=== PATIENT | male | born 1940 | race Caucasian/White ===

== ENCOUNTER → 2016-09-08 | Outpatient (CLI) | payer OTHER ==
[~2016-09-08] MED LIST: ASPI81TA28 PO; CHOL100010 PO; HYDR-5688 PO; MULT-190 PO
[2016-09-08 12:22] LABS: BASO % 0.4 %; BASO ABS # 0.03 K/uL (0-0.2); COMPLETE YES; EOS % 1.4 %; HEMATOCRIT 41.3 % (42-52); IG% 0.1 %; LYMPH % 31.5 %; LYMPH ABS # 2.39 K/uL (1.2-3.4); MEAN CELL VOLUME 90.2 fL (80-100); MEAN CORPUSCULAR HEMOGLOBIN 30.6 pg (25-34); MEAN CORPUSCULAR HGB CONC 33.9 g/dl (32-36); MONO % 11.5 %; NEUT % 55.1 %; PLATELET COUNT 220 K/uL (130-400); RED BLOOD COUNT 4.58 M/uL (4.7-6.1); WHITE BLOOD COUNT 7.59 K/uL (4.8-10.8)
[2016-09-08 12:36] LABS: BLOOD UREA NITROGEN 21 mg/dl (7-18); BUN/CREATININE RATIO 18.8 (10-20); CALCIUM 9.1 mg/dl (8.5-10.1); CARBON DIOXIDE 24 mmol/L (21-32); CHLORIDE 107 mmol/L (98-107); CHOLESTEROL 196 mg/dl (0-200); GLUCOSE 101 mg/dl (70-99); POTASSIUM 4.2 mmol/L (3.5-5.1); SODIUM 141 mmol/L (136-145); TRIGLYCERIDES 201 mg/dl (0-150); VERY LOW DENSITY LIPOPROT CALC 40 mg/dl
[2016-09-08 12:41] LABS: CHOLESTEROL/HDL RATIO 4.4; HDL CHOLESTEROL 45 mg/dl; LDL CHOLESTEROL CALCULATED 111 mg/dl
== END | disposition home or self-care (01) ==
LOC: C.LABBFT 10:25
PROVIDERS: ATTEND Internal Medicine
DX: E78.5 Hyperlipidemia, unspecified (principal); D64.9 Anemia, unspecified

== ENCOUNTER → 2017-01-28 | Outpatient (CLI) | payer OTHER ==
[2017-01-28 10:31] LABS: ALT/SGPT 27 U/L (12-78); BLOOD UREA NITROGEN 19 mg/dl (7-18); BUN/CREATININE RATIO 16.9 (10-20); CARBON DIOXIDE 24 mmol/L (21-32); CHLORIDE 107 mmol/L (98-107); CHOLESTEROL 169 mg/dl (0-200); GLUCOSE 108 mg/dl (70-99); POTASSIUM 4.3 mmol/L (3.5-5.1); SODIUM 139 mmol/L (136-145); TRIGLYCERIDES 184 mg/dl (0-150); VERY LOW DENSITY LIPOPROT CALC 37 mg/dl
[2017-01-28 10:35] LABS: CALCIUM 8.9 mg/dl (8.5-10.1)
[2017-01-28 10:41] LABS: ALB/GLOB RATIO 1.2 (0.9-2); ALKALINE PHOSPHATASE 64 U/L (45-117); AST/SGOT 26 U/L (15-37); CHOLESTEROL/HDL RATIO 4.3; HDL CHOLESTEROL 39 mg/dl; LDL CHOLESTEROL CALCULATED 93 mg/dl
[2017-01-28 10:44] LABS: ESTIMATED AVERAGE GLUCOSE 128 mg/dl; HA1C FLAG Normal (Normal)
== END | disposition home or self-care (01) ==
LOC: C.LAB1850 09:06
PROVIDERS: ATTEND Internal Medicine
DX: E78.5 Hyperlipidemia, unspecified (principal); R73.9 Hyperglycemia, unspecified

== ENCOUNTER → 2017-08-28 | Outpatient (CLI) | payer OTHER ==
[2017-08-28 12:39] LABS: HEMOGLOBIN A1C 6.2 % (4.5-5.6)
== END | disposition home or self-care (01) ==
LOC: C.LABBFT 10:02
PROVIDERS: ATTEND Internal Medicine
DX: E78.5 Hyperlipidemia, unspecified (principal); R73.03 Prediabetes

== ENCOUNTER → 2017-12-24 | Outpatient (CLI) | payer OTHER | END | disposition home or self-care (01) | LOC: C.PATHSPEC 17:00 | PROVIDERS: ATTEND Physician Assistant | DX: C44.519 Basal cell carcinoma of skin of other part of trunk (principal) ==

== ENCOUNTER → 2018-03-30 | Outpatient (CLI) | payer OTHER ==
--- NOTE | 2018-03-30 10:29 | DIAGNOSTIC IMAGING REPORT ---
R KNEE 1 OR 2 VIEWS ROUTINE CLINICAL HISTORY: Bilateral knee pain. COMPARISON: None FINDINGS: Alignment of the right knee is anatomic. There is a probable small right knee joint effusion. No fracture or suspicious lesion is present. There is mild medial compartment and mild to moderate patellofemoral compartment joint space narrowing. There is patellofemoral compartment osteophytosis. Moderate vascular calcification is present. IMPRESSION: 1. No acute fracture. 2. Suspected small right knee joint effusion. 3. Mild to moderate osteoarthritis within the patellofemoral compartment and mild osteoarthritis within the medial compartment. Electronically signed by: Sai Guevara M.D. 03/30/2018 10:27 AM Dictated Date/Time: 03/30/2018 10:26 AM
--- NOTE | 2018-03-30 10:32 | DIAGNOSTIC IMAGING REPORT ---
LEFT KNEE 2 VIEWS CLINICAL HISTORY: Left knee pain. FINDINGS: AP and lateral views of the left knee are obtained. No prior studies are available for comparison at the time of dictation. The skeletal structures are osteopenic. No fracture is seen. There is moderate to advanced tricompartmental degenerative joint space narrowing, greatest in the medial and patellofemoral compartments. There are large marginal osteophytes and patellar enthesophytes. Degenerative beaking is noted in the tibial spine. A joint effusion is observed. Prepatellar soft tissue swelling is noted. Atherosclerotic calcification is seen in the popliteal artery. IMPRESSION: 1. Soft tissue swelling and joint effusion. No acute osseous abnormality is seen. 2. Osteopenia and degenerative change as above. Electronically signed by: Gavin Allan M.D. 03/30/2018 10:30 AM Dictated Date/Time: 03/30/2018 10:29 AM
== END | disposition home or self-care (01) ==
LOC: C.RAD1850 10:16
PROVIDERS: ATTEND Nurse Practitioner
DX: M54.5 Low back pain (principal); M25.462 Effusion, left knee; M85.862 Other specified disorders of bone density and structure, left lower leg

== ENCOUNTER 2018-11-08 07:28 | Inpatient (IN) ==
--- NOTE | 2018-10-27 09:16 | Anesthesiology Consultation ---
Date of Service October 27, 2018 Assessment & Plan (1) Encounter for pre-operative examination: Chart Review Chart Review: Acceptable Risk for Surgery and Patient seen in Pre Admission Testing Teaching & Discussion Instructed NPO after midnight before surgery, except medications with 15 cc of water. Medication instructions provided according to the PAT guidelines. History Surgery Operation Date: 11/08/18 07:30 Proposed Procedures p L1-L2, L2-L3, L3-L4 Laminectomy and Fusion; L1-L2, L2-L3, L3-L4 Osteotomy - Patric Coker DO Height/Weight Height: 6 ft 2 in Weight: 102.4 kg Allergies Allergy/AdvReac Type Severity Reaction Status Date / Time simvastatin AdvReac Intermediate Rash Verified 10/22/18 14:11 Medications Home Medications Medication Instructions Recorded Confirmed Last Taken aspirin 81 mg PO QPM 10/19/18 10/22/18 Unknown meloxicam 15 mg PO QPM 10/19/18 10/22/18 Unknown oxycodone 5 mg PO Q6H PRN #14 tab 10/19/18 10/22/18 Unknown pravastatin 40 mg PO QAM 10/19/18 10/22/18 Unknown vit C,F-Yd-qkkio-lutein-zeaxan 1 tab PO BID 10/19/18 10/22/18 Unknown [PreserVision AREDS-2] Past Medical History Medical History BPH (benign prostatic hyperplasia) Chronic back pain TO LEGS R/L ON OCC Hyperlipidemia Osteoarthritis Past Family History Family History Other Family history non-contributory Past Surgical History Surgical History Cancer BASAL CELL FACE BACK-REMOVAL History of arthroscopy LEFT KNEE History of colonoscopy Past Anesthesia History No Hx of Anesthesia Complications and No Family Hx of Anesthesia Complications History of PONV No Motion Sickness Screening History of Motion Sickness: No Social History Smoking Status: Former smoker tobacco type: cigarettes Do You Dip or Chew Tobacco: No Smoking End Date: QUIT 40+ YRS AGO Hx Alcohol Use: Yes (RARELY) Alcohol type: beer Hx Substance Use: No Exercise / Class Metabolic Activity III < 4 Walking/Shop/Light housework (Denies CP and SOB with stairs but limited activity 2/2 leg/back pain) Review of Systems Pt denies any recent chest pain, shortness of breath, palpitations, cough, fever or URI. Physical Exam Vital Signs BP: 131/83 P: 79bpm SPO2: 94% RA T: 97.5 F R: 16 ENMT Mouth: no dental restorations, no chipped teeth and no loose teeth Thyromental Distance: > or= 3.5 Finger Breadths (.5) Mallampati Class: II Neck normal visual inspection; neck extension not limited Respiratory normal respiratory effort Auscultation: lungs clear to auscultation bilaterally Cardiovascular Rate/Rhythm: regular rate and regular rhythm Heart Sounds: no murmur Vessels: no carotid bruit Testing Electrocardiogram Date: 10/27/18 Findings: + NSR @ (71 with 1st degree AV Block) Left axis deviation. Chest X-Ray Date: 10/27/18 No acute findings. Persistent aortic tortuosity/ectasia. Hiatal hernia. Other Testing Lumbar Spine MRI 10/19/18 1. Severe spinal canal stenosis secondary to disc extrusion's at L1-2 with both cranial and caudal migratory components. This is new from prior exam results in severe multifocal spinal canal stenosis. Findings concerning for cauda equina impingement. 2. Additional multilevel spinal canal stenosis similar in severity to prior exam at L2-3 and L4-5. 3. Multilevel neural foraminal narrowing as detailed above. 4. The deformity of L2 raises concern for an acute to subacute compression fracture and is new from prior. Edema in the pedicles without a discernible fracture plane, likely reactive to trauma. *pt was called with this result and sent to ED for further evaluation and treatment. Laboratory Results 10/27/18 09:33 Blood Type A Positive 10/27/18 09:33 Antibody Screen NEGATIVE 10/27/18 09:33 PT 10.9 Seconds (9.0-12.0) 10/27/18 09:33 INR 1.1 (0.9-1.1) 10/27/18 09:33 APTT 24.1 Seconds (21.0-31.0) 10/27/18 09:33 Laboratory Tests 10/19/18 16:40 Sodium 138 Potassium 4.2 Chloride 104 Carbon Dioxide 25 BUN 28 H Creatinine 1.22 Glucose 116 H *elevated WBC count reported to surgeon. Pt did recently complete methylprednisone taper.
--- NOTE | 2018-10-27 09:24 | PAT Medication Instructions ---
Medication Instructions Date of Service October 27, 2018 Home Medications Medication Instructions Recorded oxycodone 5 mg PO Q6H PRN #14 tab 10/19/18 aspirin 81 mg PO QPM meloxicam 15 mg PO QPM oxycodone 5 mg PO Q6H PRN pravastatin 40 mg PO QAM [PreserVision AREDS-2] 1 tab PO BID ASK your surgeon for instructions aspirin 81 mg PO QPM meloxicam 15 mg PO QPM STOP taking 2 weeks before surgery [PreserVision AREDS-2] 1 tab PO BID Take morning of surgery With a small sip of water, OTHERWISE NOTHING TO EAT OR DRINK AFTER MIDNIGHT: oxycodone 5 mg PO Q6H PRN (if needed, may be taken up to four hours before surgery) pravastatin 40 mg PO QAM Take evening before surgery oxycodone 5 mg PO Q6H PRN (if needed) Other Notes If you have any questions please call us at [phone] or [phone] or [phone] or [phone]
[2018-10-27 09:51] LABS: Hematocrit (blood only) 40.3 % (42-52); Hemoglobin 13.3 g/dL (14.0-18.0); Mean Corpuscular Volume 90.4 fL (80-100); Mean Platelet Volume 8.9 fL (7.4-10.4); Platelet Count 291 K/uL (130-400); RDW Coefficient of Variation 15.7 % (11.5-14.5); RDW Standard Deviation 51.8 fL (36.4-46.3); Red Blood Count 4.46 M/uL (4.7-6.1); White Blood Count 14.42 K/uL (4.8-10.8)
--- NOTE | 2018-10-27 09:55 | XRay Report ---
XR chest Pre-admission PA/Lat CLINICAL HISTORY: Preoperative chest COMPARISON STUDY: 05/24/2010 FINDINGS: The cardiac and mediastinal contours remain stable. There is persistent aortic tortuosity/e ctasia. There is a retrocardiac opacity consistent with a hiatal hernia. There is no failure. There i s no focal pulmonary consolidation. There are no pleural effusions.[ IMPRESSION: No acute findings. Persistent aortic tortuosity/ectasia. Hiatal hernia. Electronically signed by: Santiago Maldonado M.D. 10/27/2018 9:54 AM
[2018-10-27 10:04] LABS: INR 1.1 (0.9-1.1); Partial Thromboplastin Ratio 0.9; Partial Thromboplastin Time 24.1 Seconds (21.0-31.0); Prothrombin Time 10.9 Seconds (9.0-12.0)
[2018-10-27 14:10] LABS: Basophils # (auto) 0.05 K/uL (0-0.2); Basophils % (auto) 0.3 %; Eosinophils # (auto) 0.29 K/uL (0-0.5); Immature Granulocytes % (auto) 0.7 %; Lymphocytes # (auto) 6.29 K/uL (1.2-3.4); Lymphocytes % (auto) 43.6 %; Monocytes # (auto) 0.79 K/uL (0.11-0.59); Monocytes % (auto) 5.5 %; Neutrophils % (auto) 47.9 %
--- NOTE | 2018-11-06 22:13 | History and Physical Report ---
DATE OF ADMISSION: 11/08/2018 CHIEF COMPLAINT: Back pain, numbness, tingling, weakness, posture instability, worsening neurological deficit. He has significant spinal pathology. PAST MEDICAL HISTORY: Positive for basal cell carcinoma, high cholesterol. No hypertension, COPD, diabetes. PAST SURGICAL HISTORY: Negative. ALLERGIES: SIMVASTATIN. CURRENT MEDICATIONS: Meloxicam, aspirin and pravastatin for cholesterol. SOCIAL HISTORY: . No tobacco or alcohol use moderately active. REVIEW OF SYSTEMS: Denies any blurred vision, double vision, tinnitus or vertigo. Denies chest pain, palpitations. Denies asthma, wheezing, shortness of breath. No nausea, vomiting, no bowel and bladder issues, possible retention, but no incontinence, numbness and tingling positive. OBJECTIVE: GENERAL: He is 6 feet 6 inches, 240. He is in distress. VITAL SIGNS: Blood pressure 140/80, pulse 80, respiration 16. HEENT: Pupils react to light and accommodation. Ear, nose and throat clear. CARDIAC: Normal S1, S2. MUSCULOSKELETAL: He has blunted reflexes, decreased reflexes, weakness of the quads 3, strength, weakness of hip abductors. No apparent upper motor neuron issues. PLAN: Includes a laminectomy and fusion, L1-2, L2-3, L3-4 and osteotomy L1-2, L2-3, L3-4.
[~2018-11-08 07:28] MED LIST changes: +ACETAMINOPHEN 1000 MG/100 ML IV IV SCH; -ASPI81TA28 PO; +CEFAZOLIN 2000MG 2,000 MG/15 ML SYR IV SCH; -CHOL100010 PO; -HYDR-5688 PO; +LR 15ML/HR IV SCH; -MULT-190 PO; +SODIUM CHLORIDE 0.9% 1,000 ML IV SCH
[2018-11-08] MEDS ORDERED: ONDANSETRON INJ 2 MG/ML 2 ML VIAL IV PRN ×2 (07:55→14:33)
[2018-11-08] MEDS ORDERED: HYDROmorphone INJ 1 MG/ML SYRINGE IV PRN (07:55)
[2018-11-08] MEDS ORDERED: PHENYLEPHRINE 100MCG/ML 5ML SYR IV PRN (07:55)
[2018-11-08] MEDS ORDERED: ePHEDrine sulfate 50 MG/ML AMP IV PRN (07:55)
[2018-11-08] MEDS ORDERED: ATROPINE SULFATE 0.1 MG/ML 10ML SYR IV PRN (07:55)
[2018-11-08] MEDS ORDERED: BACITRACIN INJ 50,000 UNIT VIAL ONE (09:07)
[2018-11-08] MEDS ORDERED: VANCOMYCIN HCL 1000MG/20ML VIAL ONE (09:07)
[2018-11-08] MEDS ORDERED: THROMBIN FOR SOLN 20000 UNIT KIT ONE (09:07)
[2018-11-08] MEDS ORDERED: GELATIN SPONGE SZ 100 ONE ×2 (09:07→11:29)
[2018-11-08] MEDS ORDERED: BUPIVACAINE/EPINEPHRINE 0.5% MPF 1:200,000 30 ML VIAL ONE (09:08)
[2018-11-08] MEDS ORDERED: PROPOFOL IV EMULSION 10 MG/ML 20 ML VIAL IV ONE (09:13)
[2018-11-08] MEDS ORDERED: ROCURONIUM BROMIDE 10 MG/ML 5 ML VIAL ONE ×6 (09:13→10:53)
[2018-11-08] MEDS ORDERED: LIDOCAINE HCL 2% 2 ML VIAL/AMP(20MG/ML) INFIL ONE (09:13)
[2018-11-08] MEDS ORDERED: MIDAZOLAM HCL 1 MG/ML 2ML VIAL ONE (09:13)
[2018-11-08] MEDS ORDERED: fentaNYL citrate 100 MCG/2 ML VIAL ONE ×3 (09:14→13:16)
--- NOTE | 2018-11-08 09:14 | History & Physical Bridge Note ---
Date of Service November 08, 2018 History & Physical Bridge Note I have examined the patient, reviewed the History & Physical and in the interval since the performance of the History & Physical I have noted the following changes of clinical significance: no changes noted
[2018-11-08] MEDS ORDERED: ALBUMIN HUMAN 5% 12.5 GM/250 ML VIAL IV ONE (09:44)
[2018-11-08] MEDS ORDERED: KETAMINE HCL INJ 50 MG/ML 10 ML VIAL ONE (10:13)
[2018-11-08] MEDS ORDERED: ONDANSETRON INJ 2 MG/ML 2 ML VIAL ONE (10:23)
[2018-11-08] MEDS ORDERED: DEXAMETHASONE SOD INJ 4 MG/ML VIAL ONE (10:23)
[2018-11-08] MEDS ORDERED: ePHEDrine sulfate 50 MG/ML SYR ONE (10:23)
[2018-11-08] MEDS ORDERED: HYDROmorphone INJ 2 MG/ML SYR/VIAL ONE (11:34)
--- NOTE | 2018-11-08 12:28 | Fluoroscopy Report ---
FL spine 1V any level CLINICAL HISTORY: L1-L4 LAMINECTOMY AND FUSION/ L1-L4 OSTEOTOMY COMPARISON STUDY: Lumbar spine MRI October 19, 2018. FLUOROSCOPY TIME: 9 seconds. FLUOROSCOPIC IMAGES: 1 FINDINGS: Lateral image demonstrates bilateral pedicle screws at the L1, L2, L3 and L4 levels. No int erconnecting rods are present. There are surgical retractors. IMPRESSION: Fluoroscopic image demonstrating bilateral pedicle screws at the L1, L2, L3 and L4 level s. Electronically signed by: Sai Guevara M.D. 11/08/2018 12:27 PM
[2018-11-08] MEDS ORDERED: GLYCOPYRROLATE 0.2 MG/ML VIAL ONE (12:35)
[2018-11-08] MEDS ORDERED: NEOSTIGMINE METHYLSULFATE 5 MG/5 ML SYR ONE (12:35)
[2018-11-08] MEDS ORDERED: FLOSEAL HEMOSTATIC MATRIX 10ML TOP ONE (12:38)
--- NOTE | 2018-11-08 12:57 | Post Operative Brief Note ---
Immediate Post Op Note v1 Date of Surgery November 08, 2018 Pre & Post Diagnosis Operation Date: 11/08/18 09:20 Pre-Op Diagnosis: Spinal Stenosis, Disc Herniation Post-Op Diagnosis: Spinal Stenosis, Disc Herniation Procedure Operation Date: 11/08/18 09:20 Actual Procedures p L1-L2, L2-L3, L3-L4 Laminectomy and Fusion; L1-L2, L2-L3, L3-L4 Osteotomy(Not Applicable) - Patric Coker DO Surgeon Patric Coker DO Stone Polisher Machine katty Estimated Blood Loss 300 Findings Consistent with Post-Op Diagnosis Drains Hall Catheter and Hemovac Drain
[2018-11-08] MEDS: fentaNYL citrate 100 MCG/2 ML VIAL IV PRN ×4 (13:15→13:37)
--- NOTE | 2018-11-08 13:55 | Anesthesiology Progress Note ---
Date of Service November 08, 2018 Anesthesia Post Procedure Vital Signs Vital Signs: Temp Pulse Pulse Pulse Resp BP BP 11/08/18 13:21 77 14 111/86 11/08/18 13:20 76 14 11/08/18 13:16 74 20 108/64 11/08/18 13:15 73 16 11/08/18 13:11 70 13 111/74 11/08/18 13:10 71 12 11/08/18 13:07 71 14 125/58 L 11/08/18 13:05 73 17 11/08/18 13:02 76 17 11/08/18 13:01 71 19 110/70 11/08/18 13:00 70 13 123/63 11/08/18 12:59 36.0 C L 67 16 110/70 11/08/18 08:43 36.8 C 89 20 134/90 Pulse Ox 11/08/18 13:21 97 11/08/18 13:20 95 11/08/18 13:16 97 11/08/18 13:15 98 11/08/18 13:11 98 11/08/18 13:10 97 11/08/18 13:07 95 11/08/18 13:05 96 11/08/18 13:02 98 11/08/18 13:01 96 11/08/18 13:00 98 11/08/18 12:59 91 11/08/18 08:43 94 Pain Intensity Lower Back: Pain Intensity: 2 Notes Mental Status: alert / awake / arousable Patient Amnestic to Procedure: Yes Nausea / Vomiting: adequately controlled Pain: adequately controlled Airway Patency, RR, SpO2: stable & adequate BP & HR: stable & adequate Hydration State: stable & adequate Anesthetic Complications: no major complications apparent
[2018-11-08] MEDS ORDERED: ACETAMINOPHEN 1,000 MG/100 ML VIAL IV PRN (14:33)
[2018-11-08] MEDS ORDERED: BISACODYL 10 MG SUPP PR PRN (14:33)
[2018-11-08] MEDS ORDERED: MAGNESIUM HYDROXIDE SUSP 30 ML UDC PO PRN (14:33)
[2018-11-08] MEDS ORDERED: HYDROmorphone INJ 0.5 MG/0.5 ML SYR IV PRN (14:33)
[2018-11-08] MEDS ORDERED: SOD PHOSPHATE/SOD BIPHOSPHATE ENEMA 132 ML BTL PR PRN (14:33)
[2018-11-08] MEDS: dexAMETHasone 6 MG in SYRINGE 0 ML IV SCH ×2 (15:06→21:40)
[2018-11-08] MEDS: CEFAZOLIN 2000MG 2,000 MG/15 ML SYR IV SCH (15:14)
[2018-11-08] MEDS: SODIUM CHLORIDE 0.9% 1000ML 1,000 ML IV SCH (15:15)
[2018-11-08] MEDS: DOCUSATE SODIUM/SENNA 50/8.6MG TAB PO SCH (20:14)
[2018-11-08] MEDS: ASPIRIN 81 MG ECTAB PO SCH (20:14)
[2018-11-08] MEDS ORDERED: NON-FORMULARY MEDICATION (Vit C,E-Zn-Coppr-Lutein-Zeaxan [Preservision Areds-2] 1 TAB) PO SCH (21:00)
[2018-11-09] MEDS: CEFAZOLIN 2000MG 2,000 MG/15 ML SYR IV SCH (00:40)
[2018-11-09] MEDS: OXYCODONE HCL IR 5 MG TAB (IMMEDIATE RELEASE) PO PRN ×2 (04:42→12:10)
[2018-11-09] MEDS ORDERED: Nursing to Pharmacy Communication ONE (04:46)
[2018-11-09] MEDS: SODIUM CHLORIDE 0.9% 1000ML 1,000 ML IV SCH (05:06)
[2018-11-09] MEDS: dexAMETHasone 6 MG in SYRINGE 0 ML IV SCH (06:26)
--- NOTE | 2018-11-09 07:58 | Operative Report ---
DATE OF OPERATION: 11/08/2018 PREOPERATIVE DIAGNOSES: 1. Spinal stenosis, multiple levels of the lumbar spine L1-2, L2-3, L3-4 of lumbar spine and L4-5 lumbar spine. 2. Instability, lumbar spine L1-4. 3. Large herniation L1-2 lumbar spine on the left. POSTOPERATIVE DIAGNOSES: 1. Spinal stenosis, multiple levels of the lumbar spine L1-2, L2-3, L3-4 of lumbar spine and L4-5 lumbar spine. 2. Instability, lumbar spine L1-4. 3. Large herniation L1-2 lumbar spine on the left. PROCEDURE: Include, 1. Lumbar laminectomy, foraminotomy, partial facetectomy of the lumbar spine L1-L5, so L1-2, L2-3, L3-4 and L4-5 lumbar spine. 2. Pedicle screw instrumentation, L1, 2, 3, 4 of lumbar spine bilaterally. 3. We also did a cross link which goes in the same procedure. 4. Posterolateral fusion L1-L2, L3-L4. There were no osteotomies. SURGEON: Patric Coker DO PROFESSIONAL BASS FISHER: Jone Lewis PA-C. COMPLICATIONS: Zero. BLOOD LOSS: 300 mL. ANESTHETIC: General. DESCRIPTION OF PROCEDURE: The patient was taken to the operating room, a general intubated anesthetic provided to the patient, placed prone, shaved, scrubbed, prepped and draped sterile. We made a skin incision, fascial incision. We came down on the lamina, facet joints. We dissected bilaterally out over the facets and transverse processes setting up for our instrumentation techniques. We then meticulously decompressed the canal at 4-5, 3-4, 2-3, and L1-2. we also did a discectomy at L1-2. We did this bilaterally significant undercutting of the facet joints and ligamentum flavum. We then went on to the instrumentation part of the procedure. We took down the facet joints at multiple levels, not truly an osteotomy. We then instrumented the spine at L1, 2, 3, 4 to the spine pedicle screws by the niid.to. I believe we did put a little correction on to the deformity, but nothing major. We locked down the instrumentation then bone grafted out of the transverse processes. We irrigated and closed in layers with #1 Vicryl and 2-0 Vicryl and 3-0 nylon in the skin over Hemovac drain over vancomycin powder. Sterile dressings applied. The patient returned to PACU stable. Implants used through the procedure was by the niid.to. There were no apparent complications. I attest to the content of the Intraoperative Record and any orders documented therein. Any exception s are noted below.
--- NOTE | 2018-11-09 08:23 | Anesthesiology Progress Note ---
Date of Service November 09, 2018 Anesthesia Post Procedure Vital Signs Vital Signs: Temp Pulse Pulse Pulse Resp BP BP 11/09/18 07:48 36.7 C 90 18 144/77 H 11/09/18 03:48 36.7 C 88 17 115/71 11/08/18 23:38 36.4 C L 94 H 18 131/77 11/08/18 19:29 36.6 C 96 H 20 135/74 11/08/18 17:27 36.3 C L 102 H 16 129/79 11/08/18 16:03 36.4 C L 95 H 20 136/75 11/08/18 15:03 36.3 C L 95 H 20 122/76 11/08/18 14:46 89 16 137/80 11/08/18 14:20 36.3 C L 90 16 137/75 11/08/18 14:09 36.1 C L 11/08/18 14:06 90 16 136/73 11/08/18 14:05 83 14 11/08/18 14:02 82 14 11/08/18 14:01 85 14 130/72 11/08/18 14:00 82 14 11/08/18 13:56 86 20 147/81 H 11/08/18 13:55 89 13 11/08/18 13:51 84 13 138/80 11/08/18 13:50 84 12 11/08/18 13:46 83 14 143/76 H 11/08/18 13:45 85 14 11/08/18 13:41 88 17 137/82 11/08/18 13:40 82 13 11/08/18 13:36 87 19 135/72 11/08/18 13:35 83 21 11/08/18 13:31 82 14 137/73 11/08/18 13:30 80 12 11/08/18 13:26 79 14 138/60 11/08/18 13:25 77 14 11/08/18 13:22 73 12 11/08/18 13:21 77 14 111/86 11/08/18 13:20 76 14 11/08/18 13:16 74 20 108/64 11/08/18 13:15 73 16 11/08/18 13:11 70 13 111/74 11/08/18 13:10 71 12 11/08/18 13:07 71 14 125/58 L 11/08/18 13:05 73 17 11/08/18 13:02 76 17 11/08/18 13:01 71 19 110/70 11/08/18 13:00 70 13 123/63 11/08/18 12:59 36.0 C L 67 16 110/70 11/08/18 08:43 36.8 C 89 20 134/90 Pulse Ox 11/09/18 07:48 94 11/09/18 03:48 93 11/08/18 23:38 96 11/08/18 19:29 97 11/08/18 17:27 96 11/08/18 16:03 96 11/08/18 15:03 96 11/08/18 14:46 99 11/08/18 14:20 97 11/08/18 14:09 95 11/08/18 14:06 95 11/08/18 14:05 97 11/08/18 14:02 95 11/08/18 14:01 96 11/08/18 14:00 94 11/08/18 13:56 95 11/08/18 13:55 98 11/08/18 13:51 94 11/08/18 13:50 94 11/08/18 13:46 97 11/08/18 13:45 98 11/08/18 13:41 95 11/08/18 13:40 97 11/08/18 13:36 98 11/08/18 13:35 98 11/08/18 13:31 97 11/08/18 13:30 97 11/08/18 13:26 95 11/08/18 13:25 97 11/08/18 13:22 94 11/08/18 13:21 97 11/08/18 13:20 95 11/08/18 13:16 97 11/08/18 13:15 98 11/08/18 13:11 98 11/08/18 13:10 97 11/08/18 13:07 95 11/08/18 13:05 96 11/08/18 13:02 98 11/08/18 13:01 96 11/08/18 13:00 98 11/08/18 12:59 91 11/08/18 08:43 94 Pain Intensity Lower Back: Pain Intensity: 0 Notes Mental Status: alert / awake / arousable and participated in evaluation Patient Amnestic to Procedure: Yes Nausea / Vomiting: adequately controlled Pain: adequately controlled Airway Patency, RR, SpO2: stable & adequate BP & HR: stable & adequate Hydration State: stable & adequate Anesthetic Complications: no major complications apparent and Pt Satisfied with anesthetic care
[2018-11-09] MEDS: PRAVASTATIN SOD 40 MG TAB PO SCH (08:48)
[2018-11-09] MEDS: ASPIRIN 81 MG ECTAB PO SCH (20:36)
[2018-11-09] MEDS: DOCUSATE SODIUM/SENNA 50/8.6MG TAB PO SCH (20:36)
[2018-11-10] MEDS: PRAVASTATIN SOD 40 MG TAB PO SCH (07:35)
[2018-11-10] MEDS: OXYCODONE HCL IR 5 MG TAB (IMMEDIATE RELEASE) PO PRN (10:43)
--- NOTE | 2018-11-11 06:36 | Coding Query ---
CODING QUERY To promote full compliance with coding requirements relating to patient care, provider participation is requested in all cases of apprentice lineman third step uncertainty. Please assist us with the question(s) below: Coding Question(s): Please specify below, the type of Bone Graft used in the Spinal Fusion procedure on 11/08/18. ( ) Autologous Tissue Substitute ( ) Nonautologous Tissue Substitute ( ) Both Autologous and Nonautologous Tissue Substitute ( ) Synthetic Substitute ( ) Other: Please Specify: Physician's Response(s): Thank you Tess Tripp Principal Diagnosis: "that condition established after study, to be chiefly responsible for occasioning the admission of the patient to the hospital for care." Co-Existing Principal Diagnosis: "when two or more diagnoses equally meet the criteria for principal diagnosis as determined by the circumstances of admission, diagnostic work up, and/or therapy provided, and the Alphabetic Index, Tabular List, or another coding guideline does not provide sequencing direction, any one of the diagnoses may be sequenced first." "When the physician has documented what appears to be a current diagnosis in the body of the record, but has not included the diagnosis in the final diagnostic statement, the physician should be asked whether the diagnosis should be added." (Source [facility]oding [facility] 2 QTR90. p3-4) FATMATA
--- NOTE | 2018-11-11 07:56 | Discharge Summary ---
HISTORY OF PRESENT ILLNESS: He is alert, oriented. Minimal complaints of pain. Vital signs stable. No chest pain, shortness of breath. No calf tenderness. PHYSICAL EXAMINATION: VITAL SIGNS: Afebrile. EXTREMITIS: Moves all extremities. NEUROLOGIC: Communicates perfectly. ASSESSMENT: Reconstructive spine surgery. PLAN: Includes dressing change today. Drain will be pulled. We will get him discharged. He has a followup appointment. He is given instructions and precautions and warnings in the office and here in the hospital. Prescriptions are on his chart for a rolling walker, commode healthcare consulting manager, and Napoleon for pain.
--- NOTE | 2018-11-18 16:17 | Coding Query ---
Answer to the coding query: The bone grafted used in spinal fusion on 11/08/2018 with both autograft and nonautologous tissues substitute. FATMATA
== END 2018-11-10 11:12 | disposition home or self-care (01) | DRG 460 ==
LOC: ASU 07:28 → 3E 13:04

== ENCOUNTER 2018-11-15 11:06 | Inpatient (IN) ==
[2018-11-15] MEDS ORDERED: HYDROmorphone INJ 1 MG/ML SYRINGE IV PRN (11:59)
[2018-11-15] MEDS ORDERED: ONDANSETRON INJ 2 MG/ML 2 ML VIAL IV STA (11:59)
[2018-11-15 12:43] LABS: Basophils # (auto) 0.03 K/uL (0-0.2); Basophils % (auto) 0.2 %; Eosinophils # (auto) 0.13 K/uL (0-0.5); Eosinophils % (auto) 0.9 %; Hematocrit (blood only) 31.4 % (42-52); Hemoglobin 10.4 g/dL (14.0-18.0); Immature Granulocytes # (auto) 0.11 K/uL (0.00-0.02); Immature Granulocytes % (auto) 0.8 %; Lymphocytes # (auto) 4.61 K/uL (1.2-3.4); Lymphocytes % (auto) 31.6 %; Mean Corpuscular Hgb Conc 33.1 g/dL (32-36); Mean Platelet Volume 8.1 fL (7.4-10.4); Monocytes # (auto) 1.35 K/uL (0.11-0.59); Monocytes % (auto) 9.2 %; Neutrophils # (auto) 8.38 K/uL (1.4-6.5); Neutrophils % (auto) 57.3 %; Platelet Count 414 K/uL (130-400); RDW Standard Deviation 51.5 fL (36.4-46.3); Red Blood Count 3.53 M/uL (4.7-6.1); White Blood Count 14.61 K/uL (4.8-10.8)
[2018-11-15 12:59] LABS: Albumin Level 3.2 gm/dl (3.4-5.0); Aspartate Aminotransferase 24 U/L (15-37); BUN Creatinine Ratio 13.9 (10-20); Blood Urea Nitrogen 14 mg/dl (7-18); C Reactive Protein 4.31 mg/dl (0-0.29); Calcium 9.1 mg/dl (8.5-10.1); Carbon Dioxide 26 mmol/L (21-32); Chloride 104 mmol/L (98-107); Est GFR (African American) 80.6; Est GFR (Non-African American) 69.6; Glucose 87 mg/dl (70-99); Sodium 135 mmol/L (136-145)
[2018-11-15 13:02] LABS: Alanine Aminotransferase 26 U/L (12-78); Albumin Globulin Ratio 0.7 (0.9-2); Alkaline Phosphatase 79 U/L (45-117); Bilirubin,Total 0.3 mg/dl (0.2-1); Globulin 4.4 gm/dl (2.5-4.0); Total Protein 7.6 gm/dl (6.4-8.2)
--- NOTE | 2018-11-15 14:12 | Emergency Department Note ---
Entered by Corinna Simms acting as a scribe for Yosi Travis MD History of Present Illness General Chief complaint: Back Injury/Pain Stated complaint: POST SURGERY BACK PAIN Time Seen by Provider: 11/15/18 11:47 Source: patient History of Present Illness Onset (ago): day(s) 5 Location: back Radiation: back Severity: severe Pain Consistency: + other (Worsening) Maximum Pain Intensity: 9 Current Pain Intensity: 9 Quality: + other (Back pain) Relieved By: not by medication ([place]) Exacerbated By: + movement Associated symptoms: + other (Back pain); no fever/chills The patient is a 78 year old male who presents to the Emergency Room with complaints of worsening back pain starting 5 days ago. The patient reports that his back is severely painful. He rates this pain 9/10. He states that he is not able to walk and has not been able to sleep because of the pain. He notes that movement worsens his pain. The patient reports that Dr. Mahan [facility] surgeon performed back surgery 1 week ago and gave the patient [place] which has not relieved his pain. He adds that he does take Aspirin. He denies abdominal pain and fevers. Home Medications Home Medications Medication Instructions Recorded Confirmed Type PreserVision AREDS-2 1 tab PO BID 10/19/18 11/15/18 History aspirin 81 mg PO HS 10/19/18 11/15/18 History meloxicam 15 mg PO HS 10/19/18 11/15/18 History pravastatin 40 mg PO QAM 10/19/18 11/15/18 History hydrocodone-acetaminophen [[place]] 1 tab PO Q6H PRN #40 tab 11/09/18 11/15/18 Rx hydrocodone-acetaminophen [[place]] 1 tab PO Q6H PRN #40 tab 11/18/18 Rx Allergies Allergy/AdvReac Type Severity Reaction Status Date / Time simvastatin AdvReac Intermediate Rash Verified 11/15/18 12:22 Past Med/Surg History Medical History BPH (benign prostatic hyperplasia) Chronic back pain TO LEGS R/L ON OCC Hyperlipidemia Osteoarthritis Surgical History Cancer BASAL CELL FACE BACK-REMOVAL History of arthroscopy LEFT KNEE History of colonoscopy Family History Other Family history non-contributory Social History Preferred Language: Frisian Beliefs That Will Affect Care: Voodoo marital status: Current Living Situation: Spouse Other Information That Helps Us Care for You: No Feels Safe at Home: Yes Safety Concerns: Feels Safe At This Time Smoking Status: Former smoker Hx Alcohol Use: Yes Hx Substance Use: No Review of Systems See HPI for pertinent positives & negatives. and A total of 10 systems reviewed and were otherwise negative Physical Exam Vital Signs Vital Signs - 24 hr 11/17/18 23:18 11/18/18 07:38 11/18/18 15:10 Temperature 36.9 C 36.6 C 36.6 C Temperature Source Oral Oral Pulse Rate [Apical] 81 81 Pulse Rate [Left Finger] 81 81 Respiratory Rate 16 16 16 Respiratory Depth Normal Blood Pressure [Left Arm] 137/69 131/74 131/74 Blood Pressure Mean [Left Arm] 91 93 Blood Pressure Position [Left Arm] Lying Lying Pulse Oximetry 95 95 95 Oxygen Delivery Method Room Air Room Air 11/18/18 15:13 Temperature 36.5 C Temperature Source Oral Pulse Rate [Apical] Pulse Rate [Left Finger] 103 H Respiratory Rate 19 Respiratory Depth Blood Pressure [Left Arm] 120/57 L Blood Pressure Mean [Left Arm] 78 Blood Pressure Position [Left Arm] Sitting Pulse Oximetry 96 Oxygen Delivery Method Room Air GENERAL: Awake, alert, well-appearing, in no distress HENT: Normocephalic, atraumatic. Oropharynx unremarkable. EYES: Normal conjunctiva. Sclera non-icteric. NECK: Inspection normal. Non-tender. Supple. No nuchal rigidity. FROM. No masses. RESPIRATORY: Clear to auscultation. No wheezes. No rales. Normal respiratory effort. CARDIAC: Normal rate. Normal rhythm. No murmurs. No rubs. Extremities warm and well perfused. Pulses equal. No JVD. GI: Soft, non-distended. No tenderness to palpation. No rebound or guarding. No masses. RECTAL: Deferred. MUSCULOSKELETAL: Atraumatic. Chest examination reveals no tenderness. The back is symmetrical on inspection without obvious abnormality. No joint edema. Wound dressing in place. 5/5 strength. LOWER EXTREMITIES: Calves are equal size bilaterally and non-tender. No edema. No discoloration. NEURO: Normal sensorium. No sensory or motor deficits noted. SKIN: No rash or jaundice noted. Course 1150: The patient was evaluated in room C1A, and a complete history and physical examination were performed. 1244: I reevaluated the patient at this time who is feeling better. Administered Medications Discontinued Medications Hydrocodone Bitart/Acetaminophen ([place] 10/325) 1 tab PO Q6H PRN PRN Reason: PAIN RATING 1-5 Stop: 11/29/18 17:11 Last Admin: 11/18/18 11:36 Dose: 1 tab Documented by: [id number] Admin: 11/18/18 04:51 Dose: 1 tab Documented by: [id number] Admin: 11/17/18 22:45 Dose: 1 tab Documented by: [id number] Admin: 11/17/18 16:10 Dose: 1 tab Documented by: [id number] Admin: 11/17/18 07:29 Dose: 1 tab Documented by: [id number] Admin: 11/16/18 23:19 Dose: 1 tab Documented by: [id number] Admin: 11/16/18 15:20 Dose: 1 tab Documented by: [id number] Admin: 11/16/18 08:56 Dose: 1 tab Documented by: [id number] Admin: 11/16/18 01:59 Dose: 1 tab Documented by: [id number] Admin: 11/15/18 19:58 Dose: 1 tab Documented by: [id number] Aspirin (Ecotrin Ectab) 81 mg PO HS TENZIN Stop: 12/15/18 20:59 Last Admin: 11/17/18 21:39 Dose: 81 mg Documented by: [id number] Admin: 11/16/18 20:31 Dose: 81 mg Documented by: [id number] Admin: 11/15/18 20:46 Dose: 81 mg Documented by: [id number] Docusate Sodium (Colace) 100 mg PO BID TENZIN Stop: 12/15/18 20:59 Last Admin: 11/18/18 08:34 Dose: 100 mg Documented by: [id number] Admin: 11/17/18 21:39 Dose: 100 mg Documented by: [id number] Admin: 11/17/18 08:52 Dose: 100 mg Documented by: [id number] Admin: 11/16/18 20:31 Dose: 100 mg Documented by: [id number] Admin: 11/16/18 08:55 Dose: 100 mg Documented by: [id number] Admin: 11/15/18 20:46 Dose: 100 mg Documented by: [id number] Hydromorphone HCl (Dilaudid) 1 mg IV Q15M PRN PRN Reason: Pain Stop: 11/29/18 11:58 Last Admin: 11/15/18 12:42 Dose: 1 mg Documented by: [id number] Hydromorphone HCl (Dilaudid) 0.5 mg IV Q4H PRN PRN Reason: Pain Stop: 11/29/18 17:11 Last Admin: 11/17/18 19:09 Dose: 0.5 mg Documented by: [id number] Admin: 11/16/18 07:32 Dose: 0.5 mg Documented by: [id number] Sodium Chloride (Nss 1000ml) 1,000 mls @ 80 mls/hr IV .[id number] TENZIN Stop: 12/15/18 17:29 Last Admin: 11/17/18 08:03 Dose: Not Given Documented by: [id number] Infusion: 11/17/18 07:44 Dose: 80 mls/hr Documented by: [id number] Admin: 11/16/18 19:14 Dose: 80 mls/hr Documented by: [id number] Infusion: 11/16/18 18:22 Dose: 0 mls/hr Documented by: [id number] Infusion: 11/16/18 14:34 Dose: 80 mls/hr Documented by: [id number] Infusion: 11/16/18 06:14 Dose: 80 mls/hr Documented by: [id number] Admin: 11/16/18 05:52 Dose: 80 mls/hr Documented by: [id number] Infusion: 11/16/18 05:52 Dose: 80 mls/hr Documented by: [id number] Admin: 11/15/18 18:02 Dose: 80 mls/hr Documented by: [id number] Magnesium Hydroxide (Milk Of Magnesia) 30 ml PO Q6H PRN PRN Reason: Constipation Stop: 12/15/18 17:11 Last Admin: 11/17/18 08:53 Dose: 30 ml Documented by: [id number] Ondansetron HCl (Zofran) 4 mg IV NOW STA Stop: 11/15/18 12:00 Last Admin: 11/15/18 12:42 Dose: 4 mg Documented by: [id number] Pravastatin Sodium (Pravachol) [facility] Stop: 12/16/18 08:59 Last Admin: 11/18/18 08:34 Dose: 40 mg Documented by: [id number] Admin: 11/17/18 08:52 Dose: 40 mg Documented by: [id number] Admin: 11/16/18 08:55 Dose: 40 mg Documented by: [id number] Medical Decision Making Differential Diagnosis Differential diagnosis: Etiologies such as muscular strain, fracture, metastatic disease, disc herniation, sciatica, epidural abscess, vertebral osteomyelitis, discitis, spinal epidural hematoma, cord compression, cauda equina/conus medullaris syndrome, aortic disease, infection, shingles, renal colic, gastrointestinal, acute exacerbation of chronic back pain, as well as others were entertained. Medical Records Attestation: I reviewed the patient's medical records. Home Medications Current Medication List: was personally reviewed by me Laboratory Data Attestation: I reviewed the patient's lab results. Result diagrams: 11/15/18 12:30 11/15/18 12:30 Lab Results 11/15/18 11/15/18 11/15/18 Range/Units 12:30 12:30 12:30 WBC 14.61 H (4.8-10.8) K/uL RBC 3.53 L (4.7-6.1) M/uL Hgb 10.4 L (14.0-18.0) g/dL Hct 31.4 L (42-52) % MCV 89.0 (80-100) fL MCH 29.5 (25-34) pg MCHC 33.1 (32-36) g/dL RDW Std Deviation 51.5 H (36.4-46.3) fL RDW Coeff of Bhavesh 16.0 H (11.5-14.5) % Plt Count 414 H (130-400) K/uL MPV 8.1 (7.4-10.4) fL Immature Gran % (Auto) 0.8 % Neut % (Auto) 57.3 % Lymph % (Auto) 31.6 % [place] % (Auto) 9.2 % Eos % (Auto) 0.9 % Baso % (Auto) 0.2 % Immature Gran # (Auto) 0.11 H (0.00-0.02) K/uL Neut # (Auto) 8.38 H (1.4-6.5) K/uL Lymph # (Auto) 4.61 H (1.2-3.4) K/uL [place] # (Auto) 1.35 H (0.11-0.59) K/uL Eos # (Auto) 0.13 (0-0.5) K/uL Baso # (Auto) 0.03 (0-0.2) K/uL ESR 77 H (0-14) mm/hr Sodium 135 L (136-145) mmol/L Potassium 4.0 (3.5-5.1) mmol/L Chloride 104 (98-107) mmol/L Carbon Dioxide 26 (21-32) mmol/L Anion Gap 6.0 (3-11) BUN 14 (7-18) mg/dl Creatinine 1.02 (0.6-1.4) mg/dl Est Cr Clr Drug Dosing Not Reportable Est GFR ( Amer) 80.6 Est GFR (Non-Af Amer) 69.6 BUN/Creatinine Ratio 13.9 (10-20) Glucose 87 (70-99) mg/dl Calcium 9.1 (8.5-10.1) mg/dl Total Bilirubin 0.3 (0.2-1) mg/dl AST 24 (15-37) U/L ALT 26 (12-78) U/L Alkaline Phosphatase 79 (45-117) U/L C-Reactive Protein 4.31 H (0-0.29) mg/dl Total Protein 7.6 (6.4-8.2) gm/dl Albumin 3.2 L (3.4-5.0) gm/dl Globulin 4.4 H (2.5-4.0) gm/dl Albumin/Globulin Ratio 0.7 L (0.9-2) Lipase 78 (73-393) U/L Imaging Data Radiologist's Impression: Radiology results as stated below per my review and the radiologist's interpretation: Blood Pressure Blood Pressure Findings: Normal blood pressure MDM Narrative This is a 78-year-old male who presents emergency department complaining of low back pain. Patient has history of having his back operated on. He is afebrile however does have an old he was given Dilaudid here for the pain. Repeat examination revealed improvement the patient's symptoms. Using shared medical decision making with the patient the decision was made to send the patient for an MRI of his lower spine. I did discuss the MRI with Dr. Coker who was kind enough to see the patient. The patient was admitted to Dr. Coker's service. Impression & Plan Back pain Discharge Plan Visit Data *Final* Discharge Date/Time: 11/15/18 16:31 Chief Complaint: Back Injury/Pain Stated Complaint: POST SURGERY BACK PAIN ED Provider: Yosi Travis Discharge Problem: Back pain Patient Disposition: Admitted As Inpatient Discharge Instructions Interventions: ED Discharge Assessment Last Done: 11/15/18 16:31 Discharge Problem: Back pain Qualifiers: Back pain location: back pain in unspecified location Chronicity: acute Back pain laterality: midline Qualified Code(s): M54.9 - Dorsalgia, unspecified The scribe's documentation has been prepared under my direction and personally reviewed by me in its entirety. I confirm that the note above accurately reflects all work, treatment, procedures, and medical decision making performed by me.
--- NOTE | 2018-11-15 15:00 | Magnetic Resonance Report ---
MRI OF THE LUMBAR SPINE WITHOUT CONTRAST CLINICAL HISTORY: Low back pain. Lower extremity numbness. COMPARISON STUDY: Lumbar spine MRI October 19, 2018. Lumbar spine fluoroscopic images November 08, 2018. TECHNIQUE: Utilizing a 1.5 [place] magnet and dedicated coil, multiplanar, multiecho imaging of the du ar spine was performed without IV contrast. FINDINGS: For purposes of numbering on this exam, the L5-S1 disc space is assigned to axial image 29 of 30. The patient is status post decompression and bilateral pedicle screw fusion from L1 through L4 since MRI of October 19, 2018. Evaluation is compromised by susceptibility artifact from this hardware. L2 compre ssion fracture is noted. Subtle hypointense signal along the superior endplate of L1 may reflect a fr acture. The right pedicle screw at this level may extend through the superior endplate. Note is made of a 6.8 x 2.3 x 1.7 cm laminectomy bed fluid collection which has moderate mass effect upon the thec al sac. This collection is located at the L2 through upper L4 levels. Additional smaller operative be d fluid collections are present. These fluid collections are nonspecific. The conus terminates at the L1 level. Note is made of a central disc extrusion at L1-L2 with superior subligamentous migration. Moderate to severe multilevel disc space narrowing is noted. Paravertebral soft tissues are otherwise unremarkable. IMPRESSION: 1. Status post interval L1-L4 laminectomy and bilateral pedicle screw fusion. Several operative bed f luid collections, including a 6.8 x 2.3 x 1.7 cm laminectomy bed fluid collection at L2-L4 with moder ate to severe mass effect upon the thecal sac and narrowing of the canal and could be correlated with clinical evidence for cauda equina syndrome. These fluid collections are nonspecific. 2. Hypointense signal along the superior endplate of L1 which suggests a fracture. Right pedicle scre w at this level may extend through the superior endplate. 3. Old L2 compression fracture. 4. L1-L2 central disc extrusion. 5. Exam moderately compromised by susceptibility artifact from the surgical hardware. Electronically signed by: Sai Guevara M.D. 11/15/2018 2:58 PM
[2018-11-15] MEDS ORDERED: ONDANSETRON INJ 2 MG/ML 2 ML VIAL IV PRN (17:12)
[2018-11-15] MEDS ORDERED: ALUMINUM/MAGNESIUM SUSP 30 ML UDC PO PRN (17:12)
[2018-11-15] MEDS ORDERED: OXYCODONE/ACETAMINOPHEN 5mg/325mg TAB PO PRN (17:12)
[2018-11-15] MEDS ORDERED: ACETAMINOPHEN 1,000 MG/100 ML VIAL IV PRN (17:12)
[2018-11-15] MEDS ORDERED: MAGNESIUM HYDROXIDE SUSP 30 ML UDC PO PRN (17:12)
[2018-11-15] MEDS: SODIUM CHLORIDE 0.9% 1000ML 1,000 ML IV SCH (18:02)
[2018-11-15] MEDS: HYDROCODONE/ACETAMINOPHEN 10/325 TAB PO PRN (19:58)
[2018-11-15] MEDS: DOCUSATE SODIUM 100 MG CAP PO SCH (20:46)
[2018-11-15] MEDS: ASPIRIN 81 MG ECTAB PO SCH (20:46)
[2018-11-15] MEDS ORDERED: NON-FORMULARY MEDICATION (Vit C,E-Zn-Coppr-Lutein-Zeaxan [Preservision Areds-2] 1 TAB) PO SCH (21:00)
[2018-11-16] MEDS: HYDROCODONE/ACETAMINOPHEN 10/325 TAB PO PRN ×4 (01:59→23:19)
[2018-11-16] MEDS: SODIUM CHLORIDE 0.9% 1000ML 1,000 ML IV SCH ×2 (05:52→19:14)
[2018-11-16] MEDS: HYDROmorphone INJ 0.5 MG/0.5 ML SYR IV PRN (07:32)
--- NOTE | 2018-11-16 08:27 | History and Physical Report ---
DATE OF ADMISSION: 11/15/2018 CHIEF COMPLAINT: Back pain, lower extremity pain. HISTORY OF PRESENT ILLNESS: Clemencia is a delightful patient, operated on 8 days ago, fairly uneventful, but a lumbar spine surgery, although a major operation, instrumentation fusion and correction of his kyphosis. He went home. He is well only for 1 day, had pain on Thursday, which is a few days ago, seemed to have survived the weekend fairly well, but on Thursday, the pain became so excruciating for Mr. Bower. He went to the Emergency Room appropriately. We saw him in the Emergency Room, although he is intact. Neurologically, he has significant pain, difficulty with ambulation. I admitted him to the service of orthopedic spine surgery after an MRI scan demonstrates compression of the cauda equina area of the lumbar area, looks like a hematoma to me or seroma postoperative which is the more likely diagnosis. PAST MEDICAL HISTORY: Positive for osteoarthritis, back pain, cancer, hyperlipidemia. PAST SURGICAL HISTORY: Recent surgical history includes his lumbar spine surgery. REVIEW OF SYSTEMS: He denies any fevers, sweats, chills. Denies any bowel and bladder issues. Does have some mechanical back pain. PHYSICAL EXAMINATION: VITAL SIGNS: Blood pressure 146/76, pulse 76 and regular. HEENT: Normal. CARDIAC: Normal S1, S2. No S3. LUNGS: Clear. ABDOMEN: Soft, nontender, bowel sounds present. EXTREMITIES: Moves all extremities. Good sensation. Some pain with percussion. Wound clean, dry. Images demonstrate hematoma, lumbar spine. ASSESSMENT: Includes that of a delightful gentleman with hematoma, lumbar spine. PLAN: We will keep him hydrated today, on steroid medication, hopefully this will resolve in 24-48 hours. If it does not resolve, a low threshold to take him back to surgery for evacuation of hematoma, which is a nonissue in a 78-year-old gentleman. I will follow him closely.
[2018-11-16] MEDS: PRAVASTATIN SOD 40 MG TAB PO SCH (08:55)
[2018-11-16] MEDS: DOCUSATE SODIUM 100 MG CAP PO SCH ×2 (08:55→20:31)
[2018-11-16] MEDS: ASPIRIN 81 MG ECTAB PO SCH (20:31)
[2018-11-17] MEDS: HYDROCODONE/ACETAMINOPHEN 10/325 TAB PO PRN ×3 (07:29→22:45)
[2018-11-17] MEDS: SODIUM CHLORIDE 0.9% 1000ML 1,000 ML IV SCH ×2 (07:59→08:03)
[2018-11-17] MEDS: DOCUSATE SODIUM 100 MG CAP PO SCH ×2 (08:52→21:39)
[2018-11-17] MEDS: PRAVASTATIN SOD 40 MG TAB PO SCH (08:52)
[2018-11-17] MEDS: HYDROmorphone INJ 0.5 MG/0.5 ML SYR IV PRN (19:09)
[2018-11-17] MEDS: ASPIRIN 81 MG ECTAB PO SCH (21:39)
[2018-11-18] MEDS: HYDROCODONE/ACETAMINOPHEN 10/325 TAB PO PRN ×2 (04:51→11:36)
[2018-11-18] MEDS: DOCUSATE SODIUM 100 MG CAP PO SCH (08:34)
[2018-11-18] MEDS: PRAVASTATIN SOD 40 MG TAB PO SCH (08:34)
--- NOTE | 2018-11-18 16:23 | Discharge Summary ---
Mr. Bower was admitted for retractable back pain a few days ago. He was imaged. He was studied. He has made nice improvement and his pain is controlled today sitting. Some back and buttock pain when he stands and numbness and tingling, but no deficit. He has made nice steady progress. His wound clean, dry. He is afebrile. No chest pain or shortness of breath. ASSESSMENT: Status post reconstructive surgery admitted after surgery for intractable back pain. PLAN: [place] for pain, discharged home. He has a followup appointment in 5 days in the office. Instructions given. Precautions given and education to his overall process provided personally by me.
== END 2018-11-18 16:49 | disposition home or self-care (01) | DRG 921 ==
LOC: ED 11:06 → 3W 15:58

== ENCOUNTER 2022-10-16 13:04 | Observation (INO) ==
--- NOTE | 2022-10-16 13:08 | Emergency Department Note ---
Impression & Plan Intractable back pain, Leukocytosis ED Provider Note NAME: FREDDY ESPINOZA AGE: 82 SEX: M : 1940 ARRIVES VIA: Ambulance INFORMANT: [Patient][, ] ED PROVIDER(S): [Vivek Carreno MD] CHIEF COMPLAINT: Back pain MEDICAL DECISION MAKING: Patient presented due to concern for acute on chronic back pain. The patient did have an IV established the patient was ordered IV morphine, Solu-Medrol, p.o. oxycodone, p.o. Tylenol and a lidocaine patch. After further discussion I did have nursing attempt to ambulate the patient. The patient states that he was unable to do so secondary to pain. Given the patient's acute on chronic pain the patient was ordered additional IV pain medication including IV fentanyl. I did speak the on-call hospitalist service Dr. De Luna and the patient was admitted to the medicine service. Patient did have blood work completed at the time of his admission which does show a white count of 33 but the patient has a known history of B-cell lymphoproliferative disorder. The patient has mild anemia hemoglobin of 10.7. Patient's electrolytes grossly unremarkable does have some prerenal azotemia at 26. BSG 113 but not DKA Prior /Outside records reviewed: I did review the patient's prior CT which showed interpedicular screw extending from L2 through the disc space into the L1 vertebral body. I did review an outpatient report from the patient's disaster recovery specialist Dr. George at [facility]. 70 completed on September 03, 2022. Patient did have a recent CT done which showed lucency around the sacral and iliosacral screws with prominent hardware and was having persistent pain. The surgeon had discussed surgical options but stated this was briskly and after further discussion with the patient the recommendation was made to continue with pain medication and medical management. Patient really reportedly has 4 out of 5 left EHL and no EHL on the right which is baseline per his report. Differential diagnosis: Musculoskeletal, disc herniation, fracture, metastatic disease, cord compre ssion, discitis, sciatica, cauda equina, infection, aortic disease, renal colic, gastrointestinal, as well as other pathologies. Diagnostics, as interpreted by me: ECG: [none] Cardiac monitoring: An order was placed for continuous cardiac monitoring. The monitor shows a rate of 92 with sinus rhythm. [Patient was placed on pulse oximetry] Medical decision rules: [none] Imaging studies: See below HPI: Patient presents due to concern for worsening back pain. The patient states this primarily occurs over the left lumbar paraspinal area and will occasionally radiate to his left groin. Patient denies any chest pains or shortness of breath. The patient does have chronic symptoms from a prior surgery and states that he has PAST MEDICAL HISTORY: [See Below] PAST SURGICAL HISTORY: [See Below] SOCIAL HISTORY: [See Below] HOME MEDICATIONS: [See Below] ALLERGIES: [See Below] VITALS: [See Below] PHYSICAL EXAMINATION: GENERAL: NAD, [wearing a mask,] non-toxic. EYE EXAM: Normal conjunctiva. PERRL, no anisocoria and EOM's grossly intact w/o pain. NECK: Supple, no nuchal rigidity, no adenopathy, non-tender. No signs of meningismus. FROM of the neck with good chin to chest and neck extension. No stridor. LUNGS: Clear to auscultation. Normal chest wall mechanics. HEART: NSR, no MRG. ABDOMEN: Abdomen soft, non-tender, normo-active bowel sounds, no masses, no rebound or guarding. BACK: Left-sided lower lumbar paraspinal discomfort without overlying skin changes, well-healed midline incisional scar in the lower lumbar area. SKIN: No rashes and no bruising. UPPER EXTREMITIES: Upper extremities are grossly normal. LOWER EXTREMITIES: Grossly normal, no edema. No saddle anesthesia. NEURO EXAM: A&O x3, cranial nerves II-XII grossly intact, normal speech, moves all 4 extremities. Past Med/Surg History Medical History B-cell lymphoproliferative disorder BPH (benign prostatic hyperplasia) Chronic back pain TO LEGS R/L ON OCC Hyperlipidemia Hypertension Opioid dependence Osteoarthritis Postlaminectomy syndrome of lumbosacral region Postlaminectomy syndrome of thoracic region Scoliosis Surgical History Cancer BASAL CELL FACE BACK-REMOVAL History of arthroscopy LEFT KNEE History of colonoscopy Status post laminectomy with spinal fusion Family History Father CHF (congestive heart failure) Neuropathy Sister Breast cancer Mother Dementia Denies family history of Ovarian cancer Prostate cancer Diabetes Coronary heart disease Myocardial infarction Lung cancer Colorectal cancer Social History Smoking Status: Former smoker Tobacco Type: Cigarettes Age Started Using Tobacco: 17; Age Quit Using Tobacco: 29; packs per day: 1; Cigarettes Per Day: 1 PPD; Smoking End Date: ; Second Hand Exposure: No; Do You Dip or Chew Tobacco: No; Tobacco Cessation Education Requested by Patient: No Hx Alcohol Use: Yes Alcohol type: beer Hx Substance Use: No Preferred Language: Tajik Communication Ability: Effective Visual Impairment: No Limitations Hearing Ability: Normal Expansion Joint Finisher Required: No Beliefs That Will Affect Care: None marital status: Current Living Situation: Spouse Current Living Situation Comment: Lives w/ current occupational status: retired current occupation: [employer] How many Children do You have: 2 Other Information That Helps Us Care for You: No Feels Safe at Home: Yes Safety Concerns: Feels Safe At This Time Childhood Exposure to Second-Hand Smoke: No caffeine: Yes during the past year weight has: remained stable Dental Care, Regularly: Yes Physical Activity Frequency: 1-2 Times per Week Physical Activity Frequency Comment: strength training, 60 minutes Seatbelt Use: always Sunscreen Use: Yes Assistive Devices: Cane and Walker Assistive Devices Comment: Uses both cane and wheely walker Allergies Allergies Allergy/AdvReac Type Severity Reaction Status Date / Time simvastatin AdvReac Intermediate Rash Verified 03/05/22 11:23 Home Meds Home Medications Medication Instructions Recorded Confirmed vit C 250 mg-vit E 90 mg-zinc 40 1 tab PO BID 10/19/18 10/16/22 mg-copper 1 [id number] capsule (PreserVision AREDS-2) docusate sodium 100 mg capsule 100 mg PO BID 05/16/19 10/16/22 cholecalciferol (vitamin D3) 25 25 mcg PO DAILY 10/26/20 10/16/22 mcg (1,000 unit) tablet medical marijuana 12/03/21 10/16/22 cyanocobalamin (vitamin B-12) 500 500 mcg PO DAILY 01/02/22 10/16/22 mcg tablet Previous Rx's Medication Instructions Recorded naloxone 4 mg/actuation nasal spray 4 mg intranasal Q3M PRN opioid 04/15/21 overdose #2 ea amlodipine 5 mg tablet 5 mg PO DAILY #90 tabs 10/29/21 ferrous sulfate 325 mg (65 mg 325 mg PO BID #60 tabs 10/29/21 iron) tablet meloxicam 15 mg tablet 15 mg PO DAILY #90 tabs 10/29/21 duloxetine 60 mg capsule,delayed 60 mg PO DAILY #90 caps 12/03/21 release pravastatin 40 mg tablet 40 mg PO HS #100 tabs 01/20/22 hydrochlorothiazide 25 mg tablet 25 mg PO DAILY #90 tabs 03/05/22 gabapentin 300 mg capsule 300 mg PO .COMPLEX #120 caps 08/28/22 hydrocodone 10 mg-acetaminophen 1 tab PO Q4H increase in low back 09/01/22 325 mg tablet pain #14 tabs hydrocodone 10 mg-acetaminophen 1 tab PO Q6H pain #120 tabs 09/22/22 325 mg tablet Hospital Bed Homecare ([facility] ea 10/14/22 Bed) Results & Data (ED) Vital Signs Vital Signs - 24 hr 10/16/22 12:53 10/16/22 13:13 Temperature 36.7 C Temperature Source Oral Pulse Rate 101 H 97 H Respiratory Rate 14 Respiratory Effort / Characteristics Non-Labored Respiratory Depth Normal Respiratory Pattern Regular Blood Pressure 142/86 H Blood Pressure Mean 104 Pulse Oximetry 91 Oxygen Delivery Method Room Air Sepsis Recent Fever Within 48 Hours No Sepsis New/Unexplained Change in Mental Status No Sepsis Action Taken by Nursing No Action Required Home Medications Current Medication List: was personally reviewed by me Laboratory Data Attestation: I reviewed the patient's lab results. 10/17/22 06:00 10/17/22 06:00 Lab Results 10/16/22 10/16/22 10/16/22 Range/Units 13:22 13:22 15:39 WBC 33.42 H* (4.8-10.8) K/ul RBC 3.58 L (4.70-6.10) M/uL Hgb 10.7 L (14.0-18.0) g/dl Hct 33.4 L (42.0-52.0) % MCV 93.3 (80.0-100.0) fL MCH 29.9 (25.0-34.0) pg MCHC 32.0 (32.0-36.0) g/dL RDW Std Deviation 55.0 H (36.4-46.3) fL RDW Coeff of Bhavesh 16.1 H (11.5-14.5) % Plt Count 305 (130-400) K/uL MPV 8.7 L (9.4-12.4) fL Immature Gran % (Auto) 0.4 % Neut % (Auto) 22.7 % Lymph % (Auto) 60.7 % Duval % (Auto) 13.9 % Eos % (Auto) 1.9 % Baso % (Auto) 0.4 % Neut # (Auto) 7.57 H (1.40-6.50) K/uL Lymph # (Auto) 20.30 H (1.2-3.4) K/uL Duval # (Auto) 4.64 H (0.11-0.59) K/uL Eos # (Auto) 0.65 H (0-0.50) K/uL Baso # (Auto) 0.14 (0-0.2) K/uL Immature Gran # (Auto) 0.12 (0.01-0.20) K/uL Hairy Cells Present Sodium 136 (136-145) mmol/L Potassium 3.8 (3.5-5.1) mmol/L Chloride 101 (98-107) mmol/L Carbon Dioxide 28 (21-32) mmol/L Anion Gap 7 (3-11) BUN 30 H (6-23) mg/dl Creatinine 1.12 (0.6-1.4) mg/dl Est Cr Clr Drug Dosing 54.9 ml/min Est GFR ( Amer) 70.0 ml/min Est GFR (Non-Af Amer) 60.4 ml/min BUN/Creatinine Ratio 26.8 H (10-20) Glucose 113 H (70-99(Fasting)) mg/dl Calcium 9.8 (8.5-10.1) mg/dl SARS-CoV-2, RNA, NAAT NEGATIVE (NEGATIVE) Administered Medications Acetaminophen (Acetaminophen 325 Mg Tab) 650 mg PO Q4H PRN PRN Reason: Pain or Fever Stop: 11/15/22 19:23 Last Admin: 10/16/22 21:32 Dose: 650 mg Documented By: DM Amlodipine Besylate (Amlodipine Besylate 5 Mg Tab) 5 mg PO DAILY [facility] Stop: 11/16/22 08:59 Last Admin: 10/17/22 08:28 Dose: 5 mg Documented By: IGOR Cyanocobalamin (Cyanocobalamin (B-12) 500 Mcg Tablet) 500 mcg PO DAILY [facility] Stop: 11/16/22 08:59 Last Admin: 10/17/22 08:28 Dose: 500 mcg Documented By: IGOR Docusate Sodium (Docusate Sodium 100 Mg Cap) 100 mg PO BID TENZIN Stop: 11/15/22 20:59 Last Admin: 10/17/22 08:32 Dose: Not Given Documented By: Admin: 10/16/22 20:26 Dose: 100 mg Documented By: ANTOINETTE Duloxetine HCl (Duloxetine Hcl 60 Mg Cap) 60 mg PO DAILY [facility] Stop: 11/16/22 08:59 Last Admin: 10/17/22 08:28 Dose: 60 mg Documented By: IGOR Gabapentin (Gabapentin 300 Mg Cap) 300 mg PO BID@0800,1400 [facility] Stop: 11/16/22 07:59 Last Admin: 10/17/22 08:26 Dose: 300 mg Documented By: IGOR Heparin Sodium (Porcine) (Heparin Sod 5,000 Unit/0.5 Ml Vial) 5,000 units SQ Q12 [facility] Stop: 11/15/22 20:59 Last Admin: 10/17/22 08:28 Dose: 5,000 units Documented By: Admin: 10/16/22 20:27 Dose: 5,000 units Documented By: ANTOINETTE Hydrochlorothiazide (Hydrochlorothiazide 25 Mg Tab) 25 mg PO DAILY [facility] Stop: 11/16/22 08:59 Last Admin: 10/17/22 08:27 Dose: 25 mg Documented By: IGOR Hydromorphone HCl (Hydromorphone Inj 1 Mg/Ml Syringe) 1 mg IV Q3H PRN PRN Reason: Severe Pain (7,8,9,10) on NRS Stop: 10/30/22 19:23 Last Admin: 10/17/22 03:29 Dose: 1 mg Documented By: Admin: 10/16/22 19:34 Dose: 1 mg Documented By: ANTOINETTE Meloxicam (Meloxicam 7.5 Mg Tab) 15 mg PO DAILY [facility] Stop: 11/16/22 08:59 Last Admin: 10/17/22 08:27 Dose: 15 mg Documented By: IGOR Miscellaneous (Remove Lidoderm Patch) 1 each N/A DAILY@2100 [facility] Stop: 11/15/22 20:59 Last Admin: 10/16/22 20:29 Dose: 1 each Documented By: ANTOINETTE Multivitamins/Minerals (Cerovite Adv Formula Tab) 1 tab PO DAILY [facility] Stop: 11/16/22 08:59 Last Admin: 10/17/22 08:26 Dose: 1 tab Documented By: IGOR Pravastatin Sodium (Pravastatin Sod 40 Mg Tab) 40 mg PO HS [facility] Stop: 11/15/22 20:59 Last Admin: 10/16/22 20:26 Dose: 40 mg Documented By: DM Discontinued Medications Acetaminophen (Acetaminophen 500 Mg Tab) 1,000 mg PO NOW STA Stop: 10/16/22 13:15 Last Admin: 10/16/22 13:23 Dose: 1,000 mg Documented By: SAVANA Fentanyl Citrate (Fentanyl Citrate 100 Mcg/2 Ml Vial) 75 mcg IV NOW STA Stop: 10/16/22 15:51 Last Admin: 10/16/22 16:16 Dose: 75 mcg Documented By: SAVANA Lidocaine (Lidocaine 5% 1 Patch) 1 patch TD QAM STA Stop: 10/16/22 13:15 Last Admin: 10/16/22 13:22 Dose: 1 patch Documented By: SAVANA Methylprednisolone (Methylprednisolone 125 Mg/2 Ml Vial) 125 mg IV NOW STA Stop: 10/16/22 13:15 Last Admin: 10/16/22 13:22 Dose: 125 mg Documented By: SAVANA Morphine Sulfate (Morphine Sulfate 4 Mg/Ml 1 Ml Carp\Vial) 4 mg IV NOW STA Stop: 10/16/22 13:15 Last Admin: 10/16/22 13:22 Dose: 4 mg Documented By: SAVANA Oxycodone HCl (Oxycodone Hcl Ir 5 Mg Tab (Immediate Release)) 5 mg PO NOW STA Stop: 10/16/22 13:15 Last Admin: 10/16/22 13:23 Dose: 5 mg Documented By: SAVANA Imaging Data Radiologist's Impression: Lumbar Spine X-Ray 10/16/22 13:14 XR lumbar spine 2-3V CLINICAL HISTORY: L sided paraspinal/sciatic; prior lumbar surgery TECHNIQUE: 3 views of the lumbar spine were obtained. Comparison: Comparison is made to lumbar spine radiograph 09/18/[address] lumbar spine 08/26/2022 FINDINGS: Posterior fixation hardware is seen in the lumbar spine. Lucencies about the sacroiliac screws are again noted suggestive of loosening. Degenerative changes are seen in the lumbar spine. Unchanged multilevel compression deformities. The alignment is normal. No soft tissue abnormality is seen. IMPRESSION: 1. Posterior fixation hardware, degenerative changes, multilevel loss of height again noted. 2. Redemonstration of suggesting hardware loosening, please see CT lumbar spine for detailed findings. ACT 112: Negative or not required by law. Electronically signed by: Mario Amador M.D. 10/16/2022 1:57 PM Discharge Plan Visit Data Chief Complaint: Back Injury/Pain Stated Complaint: BACK PAIN ED Provider: Vivek Carreno Discharge Problem: Intractable back pain, Leukocytosis Patient Disposition: Admitted As Inpatient Discharge Instructions Interventions: ED Discharge Assessment Last Done: 10/16/22 19:09
[2022-10-16] MEDS ORDERED: methylPREDNISolone 125 MG/2 ML VIAL IV STA (13:14)
[2022-10-16] MEDS ORDERED: MoRPHine SULFATE 4 MG/ML 1 ML CARP\\VIAL IV STA (13:14)
[2022-10-16] MEDS ORDERED: LIDOCAINE 5% 1 PATCH TD STA (13:14)
[2022-10-16] MEDS ORDERED: oxyCODONE HCL IR 5 MG TAB (IMMEDIATE RELEASE) PO STA (13:14)
[2022-10-16] MEDS ORDERED: ACETAMINOPHEN 500 MG TAB PO STA (13:14)
--- NOTE | 2022-10-16 13:58 | XRay Report ---
XR lumbar spine 2-3V CLINICAL HISTORY: L sided paraspinal/sciatic; prior lumbar surgery TECHNIQUE: 3 views of the lumbar spine were obtained. Comparison: Comparison is made to lumbar spine radiograph 09/18/[address] lumbar spine 08/26/2022 FINDINGS: Posterior fixation hardware is seen in the lumbar spine. Lucencies about the sacroiliac screws are ag ain noted suggestive of loosening. Degenerative changes are seen in the lumbar spine. Unchanged multi level compression deformities. The alignment is normal. No soft tissue abnormality is seen. IMPRESSION: 1. Posterior fixation hardware, degenerative changes, multilevel loss of height again noted. 2. Redemonstration of suggesting hardware loosening, please see CT lumbar spine for detailed finding s. ACT 112: Negative or not required by law. Electronically signed by: Mario Amador M.D. 10/16/2022 1:57 PM
[2022-10-16] MEDS ORDERED: fentaNYL citrate PF 100 MCG/2 ML VIAL IV STA (15:50)
--- NOTE | 2022-10-16 16:30 | History & Physical Report ---
Date of Service October 16, 2022 Assessment & Plan (1) Chronic back pain: Plan: Chronic back pain History of multiple lumbar stenosis with revision with Dr. George, and with recurrent pain at prominent screw. Patient has had follow-up with [facility], has had progressive kyphotic collapse and is noted to be high risk for both continued progressive collapse of deformity and high risk of surgical intervention. Surgical intervention could be considered, both patient and his team would prefer to exhaust medical options and only pursue this if absolutely necessary. Patient notes he had not gotten a second opinion to this and if he does not improve with initial treatments would be interested in a second opinion, although again notes he would prefer to avoid surgery if possible. Does not have weakness or evidence of cauda equina indicating emergent intervention at time of admission. Known hardware loosening, patient has been evaluated for surgical revision but is felt to be a poor candidate due to high risk of morbidity and complication Pain is improving following steroid treatment in ER, will continue hydromorphone, Tylenol, lidocaine multimodal pain control and follow clinically Repeat lumbar x-ray: 1. Posterior fixation hardware, degenerative changes, multilevel loss of height again noted.2. Redemonstration of suggesting hardware loosening, please see CT lumbar spine for detailed findings. 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 at prior follow-up Continue vitamin B12, oral iron, no current change in treatment at this time Hyperlipidemia Continue pravastatin Hypertension Continue amlodipine, hctz DVT prophylaxis: SCDs, heparin Diet: Regular Disposition: Medical/surgical CODE STATUS: (2) Prediabetes: (3) B-cell lymphoproliferative disorder: (4) BPH loc w urin obs/LUTS: (5) Hypertension: History of Present Illness Primary Care Provider: Michael Casarez MD Plan is an 82-year-old male with a past medical history of spinal stenosis, postlaminectomy syndrome of thoracic/lumbosacral region, opioid dependence, hypertension, B-cell disorder, chronic anemia, and prediabetes who presents with acute on chronic low back pain limiting his ability to ambulate. 4 days pain across low/mid back. Seems to have worsened gradually over last 4 days, worsened with movement. Sometimes radiates around to the L side and down to the left heel and toes. No weakness, but is pain limited. Has some intermittent numbness/tingling in the L leg which has not chagned in the last 4 days. L leg has chronically felt heavy 'like full of novocaine' in 2019, never fully improved after his back surgeries. Has not changed in the last 4 days No chest pain, chest pressure, fever, chills, sweats. NO heat/lung problems No blood thinner use No aspirin use on gabapentin 300mg 5 pills per day 2am 1 lunch 2 dinner. Since coming in pain has improved somewhat. Pain its with exertion/mvoement, but is 'ok at rest.' but 'more I move, more I hurt but laying still I feel better and don't have that much pain.' Came in because he cannot sit/stand or ambulate in 4 days. No BM in 4 days. No urinary retention. No saddle anesthesia. Medical History: Reviewed Medications: Reviewed Surgical History: Reviewed Allergies: Reviewed Social History: No tobacco use. No etoh use. Code Status: Full Code Allergies Allergy/AdvReac Type Severity Reaction Status Date / Time simvastatin AdvReac Intermediate Rash Verified 03/05/22 11:23 Home Medications Medication Instructions Recorded Confirmed Type vit C 250 mg-vit E 90 mg-zinc 40 1 tab PO BID 10/19/18 10/16/22 History mg-copper 1 [id number] capsule (PreserVision AREDS-2) docusate sodium 100 mg capsule 100 mg PO BID 05/16/19 10/16/22 History cholecalciferol (vitamin D3) 25 25 mcg PO DAILY 10/26/20 10/16/22 History mcg (1,000 unit) tablet naloxone 4 mg/actuation nasal spray 4 mg intranasal Q3M PRN opioid 04/15/21 10/16/22 Rx overdose #2 ea amlodipine 5 mg tablet 5 mg PO DAILY #90 tabs 10/29/21 10/16/22 Rx ferrous sulfate 325 mg (65 mg 325 mg PO BID #60 tabs 10/29/21 10/16/22 Rx iron) tablet meloxicam 15 mg tablet 15 mg PO DAILY #90 tabs 10/29/21 10/16/22 Rx duloxetine 60 mg capsule,delayed 60 mg PO DAILY #90 caps 12/03/21 10/16/22 Rx release medical marijuana 12/03/21 10/16/22 History cyanocobalamin (vitamin B-12) 500 500 mcg PO DAILY 01/02/22 10/16/22 History mcg tablet pravastatin 40 mg tablet 40 mg PO HS #100 tabs 01/20/22 10/16/22 Rx hydrochlorothiazide 25 mg tablet 25 mg PO DAILY #90 tabs 03/05/22 10/16/22 Rx gabapentin 300 mg capsule 300 mg PO .COMPLEX #120 caps 08/28/22 10/16/22 Rx hydrocodone 10 mg-acetaminophen 1 tab PO Q4H increase in low back 09/01/22 10/16/22 Rx 325 mg tablet pain #14 tabs hydrocodone 10 mg-acetaminophen 1 tab PO Q6H pain #120 tabs 09/22/22 10/16/22 Rx 325 mg tablet Hospital Bed Homecare (Hospital [facility] ea 10/14/22 10/16/22 Rx Bed) Past Med/Surg History Medical History B-cell lymphoproliferative disorder BPH (benign prostatic hyperplasia) Chronic back pain TO LEGS R/L ON OCC Hyperlipidemia Hypertension Opioid dependence Osteoarthritis Postlaminectomy syndrome of lumbosacral region Postlaminectomy syndrome of thoracic region Scoliosis Surgical History Cancer BASAL CELL FACE BACK-REMOVAL History of arthroscopy LEFT KNEE History of colonoscopy Status post laminectomy with spinal fusion Family History Father CHF (congestive heart failure) Neuropathy Sister Breast cancer Mother Dementia Denies family history of Ovarian cancer Prostate cancer Diabetes Coronary heart disease Myocardial infarction Lung cancer Colorectal cancer Social History Smoking Status: Unknown if ever smoked Tobacco Type: Cigarettes Age Started Using Tobacco: 17; Age Quit Using Tobacco: 29; packs per day: 1; Cigarettes Per Day: 20; Second Hand Exposure: No; Hx Alcohol Use: No Hx Substance Use: No Preferred Language: Latvian Communication Ability: Effective Visual Impairment: No Limitations Hearing Ability: Normal Manager Sales Training Required: No Beliefs That Will Affect Care: Restoration marital status: Current Living Situation: Spouse current occupational status: retired current occupation: [employer] How many Children do You have: 2 Feels Safe at Home: Yes Childhood Exposure to Second-Hand Smoke: No caffeine: Yes during the past year weight has: remained stable Dental Care, Regularly: Yes Physical Activity Frequency: 1-2 Times per Week Physical Activity Frequency Comment: strength training, 60 minutes Seatbelt Use: always Sunscreen Use: Yes Assistive Devices: Walker Review of Systems Review of Systems: All systems reviewed & are unremarkable except as noted in HPI & below Physical Exam Physical Exam: General: A&Ox3. NAD. Cooperative. HEENT: Atraumatic, normocephalic. Pulm: CTAB A&P. -wheezes, -rales, -rhonchi. Symmetrical chest rise. No increased work of breathing. No respiratory distress. Cardiac: RRR, -mrg. Radial pulses intact and symmetrical. Abdominal: Nontender, nondistended, soft. BS present. Ext: LLE with 5/5 ankle dorsi/plantarflexion, sensation intact to soft touch. Hip flexion limited by pain. Results & Data Results & Data ([facility]) Vital Signs (Past 12 Hours) Vital Signs Temp Pulse Resp BP Pulse Ox O2 Del Method 10/16/22 13:13 97 H 10/16/22 12:53 36.7 C 101 H 14 142/86 H 91 Room Air PG Care Time/CCT Total # of Minutes Spent Total Time Spent with Patient: Total time spent is greater than 50% in coordination of care (as documented) at patient's floor/unit and/or counseling patient: Coding Level of Care Code 96592 INT INP/OBS CARE 2/55MIN Diagnoses Chronic back pain M54.9; G89.29 Prediabetes R73.03 B-cell lymphoproliferative disorder D47.9 BPH loc w urin obs/LUTS N40.1 Hypertension I10
[2022-10-16 18:10] LABS: BUN Creatinine Ratio 26.8 (10-20); Calcium 9.8 mg/dl (8.5-10.1); Creatinine Clr Calc Pharmacy 54.9 ml/min; Est GFR (Non-African American) 60.4 ml/min; Potassium 3.8 mmol/L (3.5-5.1)
[2022-10-16 18:20] LABS: Hematocrit (blood only) 33.4 % (42.0-52.0); Hemoglobin 10.7 g/dl (14.0-18.0); Mean Corpuscular Hemoglobin 29.9 pg (25.0-34.0); Mean Corpuscular Volume 93.3 fL (80.0-100.0); Mean Platelet Volume 8.7 fL (9.4-12.4); Platelet Count 305 K/uL (130-400); RDW Coefficient of Variation 16.1 % (11.5-14.5); Red Blood Count 3.58 M/uL (4.70-6.10); White Blood Count 33.42 K/ul (4.8-10.8)
[2022-10-16 18:27] LABS: Basophils # (auto) 0.14 K/uL (0-0.2); Basophils % (auto) 0.4 %; Eosinophils # (auto) 0.65 K/uL (0-0.50); Eosinophils % (auto) 1.9 %; Hairy Cells Present; Immature Granulocytes # (auto) 0.12 K/uL (0.01-0.20); Immature Granulocytes % (auto) 0.4 %; Lymphocytes % (auto) 60.7 %; Monocytes # (auto) 4.64 K/uL (0.11-0.59); Monocytes % (auto) 13.9 %; Neutrophils # (auto) 7.57 K/uL (1.40-6.50); Neutrophils % (auto) 22.7 %
[2022-10-16] MEDS ORDERED: NALOXONE NASAL SPRAY 4 MG ER HOMEPACK PRN (19:24)
[2022-10-16] MEDS: HYDROmorphone INJ 1 MG/ML SYRINGE IV PRN (19:34)
[2022-10-16] MEDS ORDERED: NALOXONE HCL 0.4 MG/1 ML VIAL/CARP IV PRN (19:39)
[2022-10-16] MEDS: DOCUSATE SODIUM 100 MG CAP PO SCH (20:26)
[2022-10-16] MEDS: PRAVASTATIN SOD 40 MG TAB PO SCH (20:26)
[2022-10-16] MEDS: HEPARIN SOD 5,000 UNIT/0.5 ML VIAL SQ SCH (20:27)
[2022-10-16] MEDS: ACETAMINOPHEN 325 MG TAB PO PRN (21:32)
[2022-10-17] MEDS: HYDROmorphone INJ 1 MG/ML SYRINGE IV PRN (03:29)
[2022-10-17 06:36] LABS: Hematocrit (blood only) 32.6 % (42.0-52.0); Mean Corpuscular Hgb Conc 33.7 g/dL (32.0-36.0); Mean Corpuscular Volume 88.8 fL (80.0-100.0); Mean Platelet Volume 8.7 fL (9.4-12.4); Platelet Count 327 K/uL (130-400); RDW Coefficient of Variation 15.9 % (11.5-14.5); RDW Standard Deviation 51.6 fL (36.4-46.3); Red Blood Count 3.67 M/uL (4.70-6.10); White Blood Count 33.73 K/ul (4.8-10.8)
[2022-10-17 07:13] LABS: BUN Creatinine Ratio 29.6 (10-20); Est GFR (African American) 73.2 ml/min; Est GFR (Non-African American) 63.1 ml/min; Potassium 4.2 mmol/L (3.5-5.1)
[2022-10-17 07:29] LABS: Basophils # (auto) 0.07 K/uL (0-0.2); Basophils % (auto) 0.2 %; Hairy Cells Present; Immature Granulocytes # (auto) 0.34 K/uL (0.01-0.20); Lymphocytes # (auto) 17.85 K/uL (1.2-3.4); Lymphocytes % (auto) 52.9 %; Monocytes # (auto) 3.18 K/uL (0.11-0.59); Monocytes % (auto) 9.4 %; Neutrophils # (auto) 12.29 K/uL (1.40-6.50); Neutrophils % (auto) 36.5 %
[2022-10-17] MEDS: CEROVITE ADV FORMULA TAB PO SCH (08:26)
[2022-10-17] MEDS: GABAPENTIN 300 MG CAP PO SCH ×2 (08:26→13:16)
[2022-10-17] MEDS: MELOXICAM 7.5 MG TAB PO SCH (08:27)
[2022-10-17] MEDS: hydroCHLOROthiazide 25 MG TAB PO SCH (08:27)
[2022-10-17] MEDS: DULoxetine HCL 60 MG CAP PO SCH (08:28)
[2022-10-17] MEDS: CYANOCOBALAMIN (B-12) 500 MCG TABLET PO SCH (08:28)
[2022-10-17] MEDS: amLODIPine BESYLATE 5 MG TAB PO SCH (08:28)
[2022-10-17] MEDS: HEPARIN SOD 5,000 UNIT/0.5 ML VIAL SQ SCH ×2 (08:28→21:41)
[2022-10-17] MEDS: DOCUSATE SODIUM 100 MG CAP PO SCH ×2 (08:32→21:44)
[2022-10-17] MEDS: ACETAMINOPHEN 325 MG TAB PO PRN (13:36)
--- NOTE | 2022-10-17 14:25 | Orthopedic Consultation ---
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 Plan I had a long discussion today with the patient reviewing his x-rays and CAT scan findings with the patient. To my eye it appears that he has gone on to a nonunion specifically across the L5-S1 construct. He has a significant moment arm extending from T7 to the sacrum with iliac bolts. The bolts are clearly loose. There is vacuum phenomenon around the interbody construct at L5. Undoubtedly with any axial load that the construct collapses precipitates his discomfort. A revision surgery in this case would be extensive in nature most likely require removal of the distal instrumentation and possible revision anterior and posterior procedure. Unfortunately he has an adequate points of fixation and he would be an extreme risk for another failed procedure. At this point revision procedure with a reasonable likelihood of a good outcome is unlikely in my hands at this institution. History of Present Illness Reason for Consultation: Back and bilateral leg pain Attending Physician: Yovanny Early MD History of Present Illness This is a very pleasant 82-year-old male who presents with marked decline in status over the past several days. He has an extensive history of back surgeries dating back over the past several years the most recent of which was in 2019. Unfortunately over the past week he is in a marked clinical status with significant back pain radiating down the bilateral lower extremities with any standing and walking. He states prior to this time he was somewhat limited but it was controlled with hydrocodone. He is comfortable supine in bed. He denies any strength deficits. He does have some permanent left leg numbness from previous lumbar herniation surgery several years ago. He has been recently evaluated by his spine surgeon and they are currently contemplating a possible revision procedure. Allergies Allergy/AdvReac Type Severity Reaction Status Date / Time simvastatin AdvReac Intermediate Rash Verified 03/05/22 11:23 Home Medications Medication Instructions Recorded Confirmed Type vit C 250 mg-vit E 90 mg-zinc 40 1 tab PO BID 10/19/18 10/16/22 History mg-copper 1 [id number] capsule (PreserVision AREDS-2) docusate sodium 100 mg capsule 100 mg PO BID 05/16/19 10/16/22 History cholecalciferol (vitamin D3) 25 25 mcg PO DAILY 10/26/20 10/16/22 History mcg (1,000 unit) tablet naloxone 4 mg/actuation nasal spray 4 mg intranasal Q3M PRN opioid 04/15/21 10/16/22 Rx overdose #2 ea amlodipine 5 mg tablet 5 mg PO DAILY #90 tabs 10/29/21 10/16/22 Rx ferrous sulfate 325 mg (65 mg 325 mg PO BID #60 tabs 10/29/21 10/16/22 Rx iron) tablet meloxicam 15 mg tablet 15 mg PO DAILY #90 tabs 10/29/21 10/16/22 Rx duloxetine 60 mg capsule,delayed 60 mg PO DAILY #90 caps 12/03/21 10/16/22 Rx release medical marijuana 12/03/21 10/16/22 History cyanocobalamin (vitamin B-12) 500 500 mcg PO DAILY 01/02/22 10/16/22 History mcg tablet pravastatin 40 mg tablet 40 mg PO HS #100 tabs 01/20/22 10/16/22 Rx hydrochlorothiazide 25 mg tablet 25 mg PO DAILY #90 tabs 03/05/22 10/16/22 Rx gabapentin 300 mg capsule 300 mg PO .COMPLEX #120 caps 08/28/22 10/16/22 Rx hydrocodone 10 mg-acetaminophen 1 tab PO Q4H increase in low back 09/01/2210/09 Rx 325 mg tablet pain #14 tabs hydrocodone 10 mg-acetaminophen 1 tab PO Q6H pain #120 tabs 09/22/22 10/16/22 Rx 325 mg tablet Hospital Bed Home[facility] (Hospital [facility]1 ea 10/14/22 10/16/22 Rx Bed) Patient History Medical History B-cell lymphoproliferative disorder BPH (benign prostatic hyperplasia) Chronic back pain TO LEGS R/L ON OCC Hyperlipidemia Hypertension Opioid dependence Osteoarthritis Postlaminectomy syndrome of lumbosacral region Postlaminectomy syndrome of thoracic region Scoliosis Surgical History Cancer BASAL CELL FACE BACK-REMOVAL History of arthroscopy LEFT KNEE History of colonoscopy Status post laminectomy with spinal fusion Family History Father CHF (congestive heart failure) Neuropathy Sister Breast cancer Mother Dementia Denies family history of Ovarian cancer Prostate cancer Diabetes Coronary heart disease Myocardial infarction Lung cancer Colorectal cancer Social History Smoking Status: Former smoker Tobacco Type: Cigarettes Age Started Using Tobacco: 17; Age Quit Using Tobacco: 29; packs per day: 1; Cigarettes Per Day: 1 PPD; Smoking End Date: ; Second Hand Exposure: No; Do You Dip or Chew Tobacco: No; Tobacco Cessation Education Requested by Patient: No Hx Alcohol Use: Yes Alcohol type: beer Hx Substance Use: No Preferred Language: Sinhala Communication Ability: Effective Visual Impairment: No Limitations Hearing Ability: Normal Director Medicaid Required: No Beliefs That Will Affect Care: None marital status: Current Living Situation: Spouse Current Living Situation Comment: Lives w/ current occupational status: retired current occupation: [employer] How many Children do You have: 2 Other Information That Helps Us Care for You: No Feels Safe at Home: Yes Safety Concerns: Feels Safe At This Time Childhood Exposure to Second-Hand Smoke: No caffeine: Yes during the past year weight has: remained stable Dental Care, Regularly: Yes Physical Activity Frequency: 1-2 Times per Week Physical Activity Frequency Comment: strength training, 60 minutes Seatbelt Use: always Sunscreen Use: Yes Assistive Devices: Cane and Walker Assistive Devices Comment: Uses both cane and wheely walker Physical Exam Physical Exam: On exam the patient is alert and oriented and cooperative with exam. He can roll from side to side without difficulty. He has a well-healed incision. There is no erythema no drainage. He exhibits no gross tension signs of plus 5 out of 5 bilateral plantarflexion dorsiflexion quadriceps. Sensory appears to be symmetric and intact lower extremities. Results & Data ([facility]) Vital Signs (Past 12 Hours) Vital Signs Temp Pulse Resp BP Pulse Ox O2 Del Method 10/17/22 11:49 36.5 C 82 18 141/75 H 92 Room Air 10/17/22 07:24 36.5 C 91 H 18 136/68 93 Room Air 10/17/22 03:43 98 H 93 Room Air 10/17/22 02:59 36.8 C 95 H 18 138/68 90 Room Air
[2022-10-17] MEDS: HYDROmorphone INJ 0.5 MG/0.5 ML SYR IV PRN ×2 (15:15→21:50)
--- NOTE | 2022-10-17 17:38 | Hospitalist Progress Note ---
Date of Service October 17, 2022 Assessment & Plan (1) Chronic back pain: Plan: Chronic back pain History of multiple lumbar stenosis with revision with Dr. George, and with recurrent pain at prominent screw. Patient has had follow-up with [facility], has had progressive kyphotic collapse and is noted to be high risk for both continued progressive collapse of deformity and high risk of surgical intervention. Surgical intervention could be considered, both patient and his team would prefer to exhaust medical options and only pursue this if absolutely necessary. Patient notes he had not gotten a second opinion to this and if he does not improve with initial treatments would be interested in a second opinion, although again notes he would prefer to avoid surgery if possible. Does not have weakness or evidence of cauda equina indicating emergent intervention at time of admission. Known hardware loosening, patient has been evaluated for surgical revision but is felt to be a poor candidate due to high risk of morbidity and complication Pain is improving following steroid treatment in ER, will continue hydromorphone, Tylenol, lidocaine multimodal pain control and follow clinically Repeat lumbar x-ray: 1. Posterior fixation hardware, degenerative changes, multilevel loss of height again noted.2. Redemonstration of suggesting hardware loosening, please see CT lumbar spine for detailed findings. 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 at prior follow-up Continue vitamin B12, oral iron, no current change in treatment at this time Hyperlipidemia Continue pravastatin Hypertension Continue amlodipine, hctz DVT prophylaxis: SCDs, heparin Diet: Regular Disposition: Medical/surgical CODE STATUS: (2) Prediabetes: (3) B-cell lymphoproliferative disorder: (4) BPH loc w urin obs/LUTS: (5) Hypertension: Admission and Anticipated Discharge Date Admission Date: October 16, 2022 Subjective Patient seen and examined Reports slight improvement in pain control Physical Exam Physical Exam: Head and ENT no thyroid enlargement trachea midline Cardiovascular S1-S2 are normal no S3 Lungs bilateral air entry fair no wheezing Abdomen soft nondistended positive bowel sounds no rebound tenderness Extremity shows trace edema Neurologically no focal deficits Skin shows no rash no cyanosis Results & Data Results & Data ([facility]) Vital Signs (Past 12 Hours) Vital Signs Temp Pulse Pulse Resp BP Pulse Ox O2 Del Method 10/17/22 07:15 89 10/17/22 14:28 77 10/17/22 15:18 36.7 C 88 18 120/71 93 Room Air 10/17/22 11:49 36.5 C 82 18 141/75 H 92 Room Air 10/17/22 07:24 36.5 C 91 H 18 136/68 93 Room Air PG Care Time/CCT Total # of Minutes Spent Total Time Spent with Patient: Total time spent is greater than 50% in coordination of care (as documented) at patient's floor/unit and/or counseling patient: Coding Level of Care Code 38529 SUB INP/OBS CARE 2/35MIN Diagnoses Chronic back pain M54.9; G89.29 Prediabetes R73.03 B-cell lymphoproliferative disorder D47.9 BPH loc w urin obs/LUTS N40.1 Hypertension I10
[2022-10-17] MEDS: PRAVASTATIN SOD 40 MG TAB PO SCH (21:41)
[2022-10-18] MEDS: HYDROmorphone INJ 1 MG/ML SYRINGE IV PRN ×4 (03:04→23:01)
[2022-10-18 06:57] LABS: Hematocrit (blood only) 32.1 % (42.0-52.0); Hemoglobin 10.8 g/dl (14.0-18.0); Mean Corpuscular Hemoglobin 29.9 pg (25.0-34.0); Mean Corpuscular Hgb Conc 33.6 g/dL (32.0-36.0); Mean Corpuscular Volume 88.9 fL (80.0-100.0); Mean Platelet Volume 8.7 fL (9.4-12.4); Platelet Count 340 K/uL (130-400); RDW Standard Deviation 52.1 fL (36.4-46.3); Red Blood Count 3.61 M/uL (4.70-6.10); White Blood Count 41.94 K/ul (4.8-10.8)
[2022-10-18] MEDS: MELOXICAM 7.5 MG TAB PO SCH (08:06)
[2022-10-18] MEDS: GABAPENTIN 300 MG CAP PO SCH ×2 (08:06→14:10)
[2022-10-18] MEDS: hydroCHLOROthiazide 25 MG TAB PO SCH (08:06)
[2022-10-18] MEDS: amLODIPine BESYLATE 5 MG TAB PO SCH (08:06)
[2022-10-18] MEDS: DOCUSATE SODIUM 100 MG CAP PO SCH ×2 (08:07→21:23)
[2022-10-18] MEDS: CYANOCOBALAMIN (B-12) 500 MCG TABLET PO SCH (08:07)
[2022-10-18] MEDS: HEPARIN SOD 5,000 UNIT/0.5 ML VIAL SQ SCH ×2 (08:07→21:23)
[2022-10-18] MEDS: CEROVITE ADV FORMULA TAB PO SCH (08:07)
[2022-10-18] MEDS: DULoxetine HCL 60 MG CAP PO SCH (08:07)
[2022-10-18 10:01] LABS: BUN Creatinine Ratio 30.5 (10-20); Calcium 9.7 mg/dl (8.5-10.1); Creatinine Clr Calc Pharmacy 63.9 ml/min; Est GFR (African American) 85.5 ml/min; Est GFR (Non-African American) 73.7 ml/min; Potassium 3.6 mmol/L (3.5-5.1)
--- NOTE | 2022-10-18 19:08 | Hospitalist Progress Note ---
Date of Service October 18, 2022 Assessment & Plan (1) Chronic back pain: Plan: Chronic back pain History of multiple lumbar stenosis with revision with Dr. George, and with recurrent pain at prominent screw. Patient has had follow-up with [facility], has had progressive kyphotic collapse and is noted to be high risk for both continued progressive collapse of deformity and high risk of surgical intervention. Surgical intervention could be considered, both patient and his team would prefer to exhaust medical options and only pursue this if absolutely necessary. Patient notes he had not gotten a second opinion to this and if he does not improve with initial treatments would be interested in a second opinion, although again notes he would prefer to avoid surgery if possible. Does not have weakness or evidence of cauda equina indicating emergent intervention at time of admission. Known hardware loosening, patient has been evaluated for surgical revision but is felt to be a poor candidate due to high risk of morbidity and complication Pain is improving following steroid treatment in ER, will continue hydromorphone, Tylenol, lidocaine multimodal pain control and follow clinically Repeat lumbar x-ray: 1. Posterior fixation hardware, degenerative changes, multilevel loss of height again noted.2. Redemonstration of suggesting hardware loosening, please see CT lumbar spine for detailed findings. 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 at prior follow-up Continue vitamin B12, oral iron, no current change in treatment at this time White count elevated consistent with lymphoma Hyperlipidemia Continue pravastatin Hypertension Continue amlodipine, hctz DVT prophylaxis: SCDs, heparin Diet: Regular Disposition: Medical/surgical CODE STATUS: (2) Prediabetes: (3) B-cell lymphoproliferative disorder: (4) BPH loc w urin obs/LUTS: (5) Hypertension: Admission and Anticipated Discharge Date Admission Date: October 16, 2022 Subjective Patient seen and examined Reports slight improvement in pain control Patient seen evaluated bedside Patient agrees to be evaluated for rehab placement Physical Exam Physical Exam: Head and ENT no thyroid enlargement trachea midline Cardiovascular S1-S2 are normal no S3 Lungs bilateral air entry fair no wheezing Abdomen soft nondistended positive bowel sounds no rebound tenderness Extremity shows trace edema Neurologically no focal deficits Skin shows no rash no cyanosis Results & Data Results & Data ([facility]) Vital Signs (Past 12 Hours) Vital Signs Temp Pulse Pulse Resp BP Pulse Ox O2 Del Method 10/18/22 15:46 36.6 C 72 16 141/75 H 91 Room Air 10/18/22 15:20 94 H 10/18/22 11:20 36.6 C 81 18 116/68 91 Room Air 10/18/22 09:00 Room Air 10/18/22 09:34 75 10/18/22 08:05 36.5 C 62 18 143/71 H 92 Room Air Laboratory Results Short CBC 10/18/22 Range/Units 05:35 WBC 41.94 H* (4.8-10.8) K/ul Hgb 10.8 L (14.0-18.0) g/dl Hct 32.1 L (42.0-52.0) % Plt Count 340 (130-400) K/uL BMP 10/18/22 05:35 Sodium 135 L Potassium 3.6 Chloride 99 Carbon Dioxide 29 BUN 29 H Creatinine 0.95 Glucose 118 H Calcium 9.7 PG Care Time/CCT Total # of Minutes Spent Total Time Spent with Patient: Total time spent is greater than 50% in coordination of care (as documented) at patient's floor/unit and/or counseling patient: Coding Level of Care Code 48795 SUB INP/OBS CARE 2/35MIN Diagnoses Chronic back pain M54.9; G89.29 Prediabetes R73.03 B-cell lymphoproliferative disorder D47.9 BPH loc w urin obs/LUTS N40.1 Hypertension I10
[2022-10-18] MEDS: PRAVASTATIN SOD 40 MG TAB PO SCH (21:23)
[2022-10-19] MEDS: HYDROmorphone INJ 0.5 MG/0.5 ML SYR IV PRN ×2 (05:23→21:25)
[2022-10-19 07:14] LABS: BUN Creatinine Ratio 30.2 (10-20); Calcium 9.6 mg/dl (8.5-10.1); Creatinine Clr Calc Pharmacy 63.2 ml/min; Est GFR (African American) 84.4 ml/min; Est GFR (Non-African American) 72.8 ml/min; Potassium 3.6 mmol/L (3.5-5.1)
[2022-10-19 07:48] LABS: Hematocrit (blood only) 32.1 % (42.0-52.0); Hemoglobin 10.8 g/dl (14.0-18.0); Mean Corpuscular Hemoglobin 30.3 pg (25.0-34.0); Mean Corpuscular Hgb Conc 33.6 g/dL (32.0-36.0); Mean Corpuscular Volume 89.9 fL (80.0-100.0); Mean Platelet Volume 8.9 fL (9.4-12.4); Platelet Count 336 K/uL (130-400); RDW Coefficient of Variation 15.9 % (11.5-14.5); RDW Standard Deviation 52.6 fL (36.4-46.3); Red Blood Count 3.57 M/uL (4.70-6.10); White Blood Count 40.38 K/ul (4.8-10.8)
[2022-10-19] MEDS: CYANOCOBALAMIN (B-12) 500 MCG TABLET PO SCH (08:39)
[2022-10-19] MEDS: DULoxetine HCL 60 MG CAP PO SCH (08:39)
[2022-10-19] MEDS: MELOXICAM 7.5 MG TAB PO SCH (08:39)
[2022-10-19] MEDS: hydroCHLOROthiazide 25 MG TAB PO SCH (08:39)
[2022-10-19] MEDS: amLODIPine BESYLATE 5 MG TAB PO SCH (08:40)
[2022-10-19] MEDS: CEROVITE ADV FORMULA TAB PO SCH (08:40)
[2022-10-19] MEDS: GABAPENTIN 300 MG CAP PO SCH ×2 (08:40→13:48)
[2022-10-19] MEDS: HEPARIN SOD 5,000 UNIT/0.5 ML VIAL SQ SCH ×2 (08:40→21:25)
[2022-10-19] MEDS: DOCUSATE SODIUM 100 MG CAP PO SCH ×2 (08:40→21:25)
[2022-10-19] MEDS: HYDROmorphone INJ 1 MG/ML SYRINGE IV PRN ×3 (08:43→16:29)
--- NOTE | 2022-10-19 17:51 | Hospitalist Progress Note ---
Date of Service October 19, 2022 Assessment & Plan (1) Chronic back pain: Plan: Chronic back pain History of multiple lumbar stenosis with revision with Dr. George, and with recurrent pain at prominent screw. Patient has had follow-up with [facility], has had progressive kyphotic collapse and is noted to be high risk for both continued progressive collapse of deformity and high risk of surgical intervention. Surgical intervention could be considered, both patient and his team would prefer to exhaust medical options and only pursue this if absolutely necessary. Patient notes he had not gotten a second opinion to this and if he does not improve with initial treatments would be interested in a second opinion, although again notes he would prefer to avoid surgery if possible. Does not have weakness or evidence of cauda equina indicating emergent intervention at time of admission. Known hardware loosening, patient has been evaluated for surgical revision but is felt to be a poor candidate due to high risk of morbidity and complication Pain is improving following steroid treatment in ER, will continue hydromorphone, Tylenol, lidocaine multimodal pain control and follow clinically Repeat lumbar x-ray: 1. Posterior fixation hardware, degenerative changes, multilevel loss of height again noted.2. Redemonstration of suggesting hardware loosening, please see CT lumbar spine for detailed findings. Continue gabapentin, duloxetine 10/17/2022-patient reports only slight improvement in pain Continue gabapentin in conjunction with duloxetine 3-patient seen with family at bedside Patient evaluated by PT OT today on the recommend inpatient rehab/SNF placement Patient was able to ambulate only short distance today his pain control is also only partially improved We will seek assistance from case management to assist with placement 10/19 -patient has intermittent ongoing back pain Case management to assist with placement in inpatient facility And anticipate DC over the next 24 to 48 hours . 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 at prior follow-up Continue vitamin B12, oral iron, no current change in treatment at this time White count elevated consistent with lymphoma Hyperlipidemia Continue pravastatin Hypertension Continue amlodipine, hctz DVT prophylaxis: SCDs, heparin Diet: Regular Disposition: Medical/surgical CODE STATUS: (2) Prediabetes: (3) B-cell lymphoproliferative disorder: (4) BPH loc w urin obs/LUTS: (5) Hypertension: Admission and Anticipated Discharge Date Admission Date: October 18, 2022 Subjective Patient seen and examined Reports slight improvement in pain control Patient agrees to be evaluated for rehab placement Physical Exam Physical Exam: Head and ENT no thyroid enlargement trachea midline Cardiovascular S1-S2 are normal no S3 Lungs bilateral air entry fair no wheezing Abdomen soft nondistended positive bowel sounds no rebound tenderness Extremity shows trace edema Neurologically no focal deficits Skin shows no rash no cyanosis Results & Data Results & Data ([facility]) Vital Signs (Past 12 Hours) Vital Signs Temp Pulse Resp BP Pulse Ox O2 Del Method 10/19/22 16:37 89 96 Room Air 10/19/22 15:25 36.7 C 99 H 16 113/71 92 Room Air 10/19/22 08:11 Room Air 10/19/22 07:25 36.6 C 86 16 135/77 94 Room Air PG Care Time/CCT Total # of Minutes Spent Total Time Spent with Patient: Total time spent is greater than 50% in coordination of care (as documented) at patient's floor/unit and/or counseling patient: Coding Level of Care Code 47481 SUB INP/OBS CARE 2/35MIN Diagnoses Chronic back pain M54.9; G89.29 Prediabetes R73.03 B-cell lymphoproliferative disorder D47.9 BPH loc w urin obs/LUTS N40.1 Hypertension I10
[2022-10-19] MEDS: PRAVASTATIN SOD 40 MG TAB PO SCH (21:25)
[2022-10-20] MEDS: HYDROmorphone INJ 0.5 MG/0.5 ML SYR IV PRN ×2 (04:09→08:37)
[2022-10-20 07:08] LABS: Calcium 9.3 mg/dl (8.5-10.1); Creatinine Clr Calc Pharmacy 56.7 ml/min; Est GFR (Non-African American) 63.9 ml/min; Potassium 3.5 mmol/L (3.5-5.1)
[2022-10-20 07:12] LABS: Hematocrit (blood only) 32.2 % (42.0-52.0); Hemoglobin 10.8 g/dl (14.0-18.0); Mean Corpuscular Hemoglobin 30.2 pg (25.0-34.0); Mean Corpuscular Hgb Conc 33.5 g/dL (32.0-36.0); Mean Corpuscular Volume 89.9 fL (80.0-100.0); Mean Platelet Volume 8.8 fL (9.4-12.4); Platelet Count 343 K/uL (130-400); RDW Coefficient of Variation 15.9 % (11.5-14.5); RDW Standard Deviation 51.8 fL (36.4-46.3); Red Blood Count 3.58 M/uL (4.70-6.10); White Blood Count 40.92 K/ul (4.8-10.8)
[2022-10-20] MEDS: DULoxetine HCL 60 MG CAP PO SCH (08:35)
[2022-10-20] MEDS: CEROVITE ADV FORMULA TAB PO SCH (08:35)
[2022-10-20] MEDS: hydroCHLOROthiazide 25 MG TAB PO SCH (08:35)
[2022-10-20] MEDS: CYANOCOBALAMIN (B-12) 500 MCG TABLET PO SCH (08:35)
[2022-10-20] MEDS: MELOXICAM 7.5 MG TAB PO SCH (08:35)
[2022-10-20] MEDS: amLODIPine BESYLATE 5 MG TAB PO SCH (08:36)
[2022-10-20] MEDS: HEPARIN SOD 5,000 UNIT/0.5 ML VIAL SQ SCH ×2 (08:36→21:23)
[2022-10-20] MEDS: GABAPENTIN 300 MG CAP PO SCH ×4 (08:36→22:12)
[2022-10-20] MEDS: DOCUSATE SODIUM 100 MG CAP PO SCH ×2 (08:36→21:23)
[2022-10-20] MEDS: methylPREDNISolone 60 MG in SYRINGE 0 ML IV SCH ×2 (11:06→18:42)
--- NOTE | 2022-10-20 15:19 | Hospitalist Progress Note ---
Date of Service October 20, 2022 Assessment & Plan (1) Chronic back pain: Plan: Acute exacerbation. His back surgeon is in [place] [employer]. We will start parenteral steroid therapy. Gabapentin has been uptitrated. He probably will eventually be discharged to a rehab facility. (2) Prediabetes: Plan: ADA diet. Sliding scale coverage as needed (3) B-cell lymphoproliferative disorder: Plan: Follow-up with hematology as an outpatient. No intervention necessary at this time (4) BPH loc w urin obs/LUTS: Plan: Continue current medical management. Stable (5) Hypertension: Plan: Continue current medical management. Stable Plan Anticipate eventual discharge to rehab facility hopefully this week when arrangements are finalized. He will probably be on a tapering dose of oral prednisone at the time of discharge Admission and Anticipated Discharge Date Admission Date: October 18, 2022 Subjective Alert and oriented. is at the bedside. He knows he has loose hardware in his back. His surgeon is in [place] [employer]. We discussed treatment with intravenous parenteral steroids and he agrees. Gabapentin has been uptitrated. He probably will be discharged to [facility] or SNF when arrangements are finalized Review of Systems Review of Systems: Constitutional-no fever or chills ENT-no blurred vision, no double vision, no epistaxis, no sore throat Respiratory-no cough, no wheezing, no shortness of breath Cardiac-no palpitations, no chest pain, no syncope GI-no nausea, vomiting, diarrhea, melena, hematochezia -no urinary retention, no urinary incontinence, no dysuria, no hematuria Musculoskeletal-low back pain Skin-no bruising, no rashes, no pruritus Neuro-no isolated weakness, no paresthesia, no weakness Psych-no depression, no anxiety Physical Exam Physical Exam: General-alert and oriented x3, no fevers, no chills HEENT-head atraumatic and normocephalic, pupils equal and reactive to light, extraocular muscles intact Neck-no lymphadenopathy or thyromegaly, trachea midline Chest-clear to auscultation percussion. No rales wheezing or rhonchi Cardiac-regular rate and rhythm, normal S1 and S2 Abdomen-normal bowel sounds, nontender, no hepatosplenomegaly Extremities-no cyanosis, clubbing, or edema MusculoskeletalLimited range of motion of the lumbar area Neuro-cranial nerves II through XII intact, motor and sensory function within normal limits, strength symmetrical , no focal deficits Psych-normal affect, normal mood Results & Data Results & Data ([facility]) Vital Signs (Past 12 Hours) Vital Signs Temp Pulse Resp BP Pulse Ox O2 Del Method 10/20/22 09:00 16 94 Room Air 10/20/22 08:02 36.8 C 92 H 14 150/74 H 93 Room Air Laboratory Results 10/20/22 06:19 10/20/22 06:19 PG Care Time/CCT Total # of Minutes Spent Total Time Spent with Patient: Total time spent is greater than 50% in coordination of care (as documented) at patient's floor/unit and/or counseling patient: Coding Level of Care Code 09162 SUB INP/OBS CARE 3/50MIN Diagnoses Chronic back pain M54.9; G89.29 Prediabetes R73.03 B-cell lymphoproliferative disorder D47.9 BPH loc w urin obs/LUTS N40.1 Hypertension I10
[2022-10-20] MEDS: ACETAMINOPHEN 325 MG TAB PO PRN (17:34)
[2022-10-20] MEDS: PRAVASTATIN SOD 40 MG TAB PO SCH (21:23)
[2022-10-21] MEDS: methylPREDNISolone 60 MG in SYRINGE 0 ML IV SCH ×2 (01:00→08:43)
[2022-10-21] MEDS: GABAPENTIN 300 MG CAP PO SCH ×3 (08:43→20:08)
[2022-10-21] MEDS: MELOXICAM 7.5 MG TAB PO SCH (08:44)
[2022-10-21] MEDS: CYANOCOBALAMIN (B-12) 500 MCG TABLET PO SCH (08:44)
[2022-10-21] MEDS: DULoxetine HCL 60 MG CAP PO SCH (08:44)
[2022-10-21] MEDS: CEROVITE ADV FORMULA TAB PO SCH (08:45)
[2022-10-21] MEDS: amLODIPine BESYLATE 5 MG TAB PO SCH (08:45)
[2022-10-21] MEDS: HEPARIN SOD 5,000 UNIT/0.5 ML VIAL SQ SCH ×2 (08:45→20:08)
[2022-10-21] MEDS: hydroCHLOROthiazide 25 MG TAB PO SCH (08:45)
[2022-10-21] MEDS: DOCUSATE SODIUM 100 MG CAP PO SCH ×2 (08:57→20:08)
[2022-10-21] MEDS: methylPREDNISolone 40 MG in SYRINGE 0 ML IV SCH (14:25)
--- NOTE | 2022-10-21 16:16 | Hospitalist Progress Note ---
Date of Service October 21, 2022 Assessment & Plan (1) Intractable back pain: Plan: Improved with parenteral steroids. We will taper dose down today, October 22. Eventual discharge on prednisone taper. Appreciate orthopedic consultation and recommendations. No surgery planned this admission (2) Hyperlipidemia: Plan: Stable with current medication therapy (3) Prediabetes: Plan: Monitor glucose levels. Sliding scale coverage as needed. Avoid concentrated sweets (4) B-cell lymphoproliferative disorder: Plan: No treatment indicated emergently. We will follow-up with oncology as an outpatient (5) Hypertension: Plan: Stable with current medical management (6) BPH loc w urin obs/LUTS: Plan: Stable with current medical management Plan Hopeful discharge to [facility] tomorrow, October 22, on oral prednisone tapering dose Admission and Anticipated Discharge Date Admission Date: October 18, 2022 Subjective He is somewhat fidgety from the Solu-Medrol. The dosage was down titrated today. Orthopedic consultation appreciated and reviewed. No surgical intervention indicated here at this time. Hopefully he can go to [facility] tomorrow, October 22. Will discharge on an oral prednisone tapering dose Review of Systems Review of Systems: Constitutional-no fever or chills ENT-no blurred vision, no double vision, no epistaxis, no sore throat Respiratory-no cough, no wheezing, no shortness of breath Cardiac-no palpitations, no chest pain, no syncope GI-no nausea, vomiting, diarrhea, melena, hematochezia -no urinary retention, no urinary incontinence, no dysuria, no hematuria Musculoskeletal-exacerbation of chronic low back pain with limited range of motion as expected Skin-no bruising, no rashes, no pruritus Neuro-no isolated weakness, no paresthesia, no weakness Psych-no depression, no anxiety Physical Exam Physical Exam: General-alert and oriented x3, fidgety HEENT-head atraumatic and normocephalic, pupils equal and reactive to light, extraocular muscles intact Neck-no lymphadenopathy or thyromegaly, trachea midline Chest-clear to auscultation percussion. No rales wheezing or rhonchi Cardiac-regular rate and rhythm, normal S1 and S2, no murmurs Abdomen-normal bowel sounds, nontender, no hepatosplenomegaly Extremities-no cyanosis, clubbing, or edema MusculoskeletalLimited range of motion lumbar spine as expected due to pain Neuro-cranial nerves II through XII intact, motor and sensory function within normal limits, strength symmetrical 5 no focal deficits Psych-normal affect, normal mood Results & Data Results & Data ([facility]) Vital Signs (Past 12 Hours) Vital Signs Temp Pulse Resp BP Pulse Ox O2 Del Method 10/21/22 14:55 36.4 C L 104 H 18 133/74 95 Room Air 10/21/22 07:40 36.6 C 87 18 146/85 H 92 Room Air Laboratory Results 10/20/22 06:19 10/20/22 06:19 PG Care Time/CCT Total # of Minutes Spent Total Time Spent with Patient: Total time spent is greater than 50% in coordination of care (as documented) at patient's floor/unit and/or counseling patient: Coding Level of Care Code 23327 SUB INP/OBS CARE 3/50MIN Diagnoses Intractable back pain M54.9 Hyperlipidemia E78.5 Prediabetes R73.03 B-cell lymphoproliferative disorder D47.9 Hypertension I10 BPH loc w urin obs/LUTS N40.1
[2022-10-21] MEDS: PRAVASTATIN SOD 40 MG TAB PO SCH (20:08)
[2022-10-22] MEDS: methylPREDNISolone 40 MG in SYRINGE 0 ML IV SCH (00:14)
[2022-10-22] MEDS: amLODIPine BESYLATE 5 MG TAB PO SCH (07:34)
[2022-10-22] MEDS: hydroCHLOROthiazide 25 MG TAB PO SCH (07:34)
[2022-10-22] MEDS: MELOXICAM 7.5 MG TAB PO SCH (07:34)
[2022-10-22] MEDS: GABAPENTIN 300 MG CAP PO SCH ×2 (07:34→15:28)
[2022-10-22] MEDS: HEPARIN SOD 5,000 UNIT/0.5 ML VIAL SQ SCH ×2 (07:35→20:25)
[2022-10-22] MEDS: CEROVITE ADV FORMULA TAB PO SCH (07:35)
[2022-10-22] MEDS: DULoxetine HCL 60 MG CAP PO SCH (07:35)
[2022-10-22] MEDS: CYANOCOBALAMIN (B-12) 500 MCG TABLET PO SCH (07:35)
[2022-10-22] MEDS: ACETAMINOPHEN 325 MG TAB PO PRN ×2 (07:39→15:32)
[2022-10-22] MEDS: DOCUSATE SODIUM 100 MG CAP PO SCH ×2 (07:39→20:24)
--- NOTE | 2022-10-22 16:05 | Hospitalist Progress Note ---
Date of Service October 22, 2022 Assessment & Plan (1) Intractable back pain: Plan: Improved with parenteral steroids. Transitioned today, October 22 to oral prednisone which will eventually be tapered off. Appreciate orthopedic consultation and recommendations. No surgery planned this admission (2) Hyperlipidemia: Plan: Stable with current medication therapy (3) Prediabetes: Plan: Monitor glucose levels. Sliding scale coverage as needed. Avoid concentrated sweets (4) B-cell lymphoproliferative disorder: Plan: No treatment indicated emergently. We will follow-up with oncology as an outpatient (5) Hypertension: Plan: Stable with current medical management (6) BPH loc w urin obs/LUTS: Plan: Stable with current medical management Plan Awaiting insurance authorization for discharge to [facility] on oral prednisone tapering dose Admission and Anticipated Discharge Date Admission Date: October 18, 2022 Subjective Alert and oriented. He appears comfortable. Parenteral steroids converted to oral prednisone. Gabapentin dosage uptitrated to what he takes at home. Eventual discharge to [facility] when arrangements are finalized Review of Systems Review of Systems: Constitutional-no fever or chills ENT-no blurred vision, no double vision, no epistaxis, no sore throat Respiratory-no cough, no wheezing, no shortness of breath Cardiac-no palpitations, no chest pain, no syncope GI-no nausea, vomiting, diarrhea, melena, hematochezia -no urinary retention, no urinary incontinence, no dysuria, no hematuria Musculoskeletal-exacerbation of chronic low back pain with limited range of motion as expected Skin-no bruising, no rashes, no pruritus Neuro-no isolated weakness, no paresthesia, no weakness Psych-no depression, no anxiety Physical Exam Physical Exam: General-alert and oriented x3, fidgety HEENT-head atraumatic and normocephalic, pupils equal and reactive to light, extraocular muscles intact Neck-no lymphadenopathy or thyromegaly, trachea midline Chest-clear to auscultation percussion. No rales wheezing or rhonchi Cardiac-regular rate and rhythm, normal S1 and S2, no murmurs Abdomen-normal bowel sounds, nontender, no hepatosplenomegaly Extremities-no cyanosis, clubbing, or edema MusculoskeletalLimited range of motion lumbar spine as expected due to pain Neuro-cranial nerves II through XII intact, motor and sensory function within normal limits, strength symmetrical 5 no focal deficits Psych-normal affect, normal mood Results & Data Results & Data ([facility]) Vital Signs (Past 12 Hours) Vital Signs Temp Pulse Resp BP Pulse Ox O2 Del Method 10/22/22 15:19 36.5 C 10/22/22 15:09 91 H 18 131/67 95 Room Air 10/22/22 07:45 36.6 C 80 16 124/72 92 Room Air Laboratory Results 10/20/22 06:19 10/20/22 06:19 PG Care Time/CCT Total # of Minutes Spent Total Time Spent with Patient: Total time spent is greater than 50% in coordination of care (as documented) at patient's floor/unit and/or counseling patient: Coding Level of Care Code 97396 SUB INP/OBS CARE 3/50MIN Diagnoses Intractable back pain M54.9 Hyperlipidemia E78.5 Prediabetes R73.03 B-cell lymphoproliferative disorder D47.9 Hypertension I10 BPH loc w urin obs/LUTS N40.1
[2022-10-22] MEDS ORDERED: DEXTROSE 50% 50 ML SYRINGE IV PRN (16:18)
[2022-10-22] MEDS ORDERED: CARBOHYDRATES FOR HYPOGLYCEMIA PO PRN (16:18)
[2022-10-22] MEDS ORDERED: GLUCOSE 40% GEL 15 GM TUBE PO PRN (16:18)
[2022-10-22] MEDS ORDERED: GLUCOSE 10 TAB/TUBE PO PRN (16:18)
[2022-10-22] MEDS ORDERED: GLUCAGON FOR INJ 1 MG VIAL SQ PRN (16:18)
[2022-10-22] MEDS: INSULIN ASPART PER UNIT SC SCH ×2 (17:49→20:56)
[2022-10-22] MEDS: predniSONE 20 MG TAB PO SCH (20:25)
[2022-10-22] MEDS: GABAPENTIN 600 MG TAB PO SCH (20:26)
[2022-10-22] MEDS: PRAVASTATIN SOD 40 MG TAB PO SCH (20:26)
[2022-10-23] MEDS: INSULIN ASPART PER UNIT SC SCH ×4 (08:43→20:51)
[2022-10-23] MEDS: HEPARIN SOD 5,000 UNIT/0.5 ML VIAL SQ SCH ×2 (08:57→20:11)
[2022-10-23] MEDS: hydroCHLOROthiazide 25 MG TAB PO SCH (08:59)
[2022-10-23] MEDS: predniSONE 20 MG TAB PO SCH ×2 (08:59→20:09)
[2022-10-23] MEDS: CYANOCOBALAMIN (B-12) 500 MCG TABLET PO SCH (08:59)
[2022-10-23] MEDS: GABAPENTIN 300 MG CAP PO SCH ×2 (08:59→14:14)
[2022-10-23] MEDS: amLODIPine BESYLATE 5 MG TAB PO SCH (09:00)
[2022-10-23] MEDS: CEROVITE ADV FORMULA TAB PO SCH (09:00)
[2022-10-23] MEDS: DULoxetine HCL 60 MG CAP PO SCH (09:00)
[2022-10-23] MEDS: MELOXICAM 7.5 MG TAB PO SCH (09:01)
[2022-10-23] MEDS: DOCUSATE SODIUM 100 MG CAP PO SCH ×2 (09:03→20:11)
--- NOTE | 2022-10-23 15:55 | Hospitalist Progress Note ---
Date of Service October 23, 2022 Assessment & Plan (1) Intractable back pain: Plan: Improved with parenteral steroids. Transitioned on October 22 to oral prednisone which will eventually be tapered off. Appreciate orthopedic consultation and recommendations. No surgery planned this admission (2) Hyperlipidemia: Plan: Stable with current medication therapy (3) Prediabetes: Plan: Monitor glucose levels. Sliding scale coverage as needed. Avoid concentrated sweets (4) B-cell lymphoproliferative disorder: Plan: No treatment indicated emergently. We will follow-up with oncology as an outpatient (5) Hypertension: Plan: Stable with current medical management (6) BPH loc w urin obs/LUTS: Plan: Stable with current medical management Plan Awaiting insurance authorization for discharge to [facility] on oral prednisone tapering dose Admission and Anticipated Discharge Date Admission Date: October 18, 2022 Subjective Alert and oriented. Pleasant. No new findings. He is tolerating oral prednisone quite well. Awaiting insurance approval for eventual discharge to [facility]. Review of Systems Review of Systems: Constitutional-no fever or chills ENT-no blurred vision, no double vision, no epistaxis, no sore throat Respiratory-no cough, no wheezing, no shortness of breath Cardiac-no palpitations, no chest pain, no syncope GI-no nausea, vomiting, diarrhea, melena, hematochezia -no urinary retention, no urinary incontinence, no dysuria, no hematuria Musculoskeletal-exacerbation of chronic low back pain with limited range of motion as expected Skin-no bruising, no rashes, no pruritus Neuro-no isolated weakness, no paresthesia, no weakness Psych-no depression, no anxiety Physical Exam Physical Exam: General-alert and oriented x3, fidgety HEENT-head atraumatic and normocephalic, pupils equal and reactive to light, extraocular muscles intact Neck-no lymphadenopathy or thyromegaly, trachea midline Chest-clear to auscultation percussion. No rales wheezing or rhonchi Cardiac-regular rate and rhythm, normal S1 and S2, no murmurs Abdomen-normal bowel sounds, nontender, no hepatosplenomegaly Extremities-no cyanosis, clubbing, or edema MusculoskeletalLimited range of motion lumbar spine as expected due to pain Neuro-cranial nerves II through XII intact, motor and sensory function within normal limits, strength symmetrical 5 no focal deficits Psych-normal affect, normal mood Results & Data Results & Data ([facility]) Vital Signs (Past 12 Hours) Vital Signs Temp Pulse Pulse Resp BP BP Pulse Ox 10/23/22 15:01 36.5 C 89 18 127/72 95 10/23/22 07:13 36.5 C 87 18 135/71 94 O2 Del Method 10/23/22 15:01 Room Air 10/23/22 07:13 Room Air Laboratory Results 10/20/22 06:19 10/20/22 06:19 PG Care Time/CCT Total # of Minutes Spent Total Time Spent with Patient: Total time spent is greater than 50% in coordination of care (as documented) at patient's floor/unit and/or counseling patient: Coding Level of Care Code 75499 SUB INP/OBS CARE 2/35MIN Diagnoses Intractable back pain M54.9 Hyperlipidemia E78.5 Prediabetes R73.03 B-cell lymphoproliferative disorder D47.9 Hypertension I10 BPH loc w urin obs/LUTS N40.1
[2022-10-23] MEDS: PRAVASTATIN SOD 40 MG TAB PO SCH (20:10)
[2022-10-23] MEDS: GABAPENTIN 600 MG TAB PO SCH (20:10)
[2022-10-23] MEDS: ACETAMINOPHEN 325 MG TAB PO PRN (22:59)
[2022-10-24] MEDS: HYDROmorphone INJ 1 MG/ML SYRINGE IV PRN (06:50)
[2022-10-24] MEDS: amLODIPine BESYLATE 5 MG TAB PO SCH (08:54)
[2022-10-24] MEDS: CYANOCOBALAMIN (B-12) 500 MCG TABLET PO SCH (08:55)
[2022-10-24] MEDS: DULoxetine HCL 60 MG CAP PO SCH (08:56)
[2022-10-24] MEDS: DOCUSATE SODIUM 100 MG CAP PO SCH ×2 (08:56→21:51)
[2022-10-24] MEDS: GABAPENTIN 300 MG CAP PO SCH ×2 (08:57→14:35)
[2022-10-24] MEDS: hydroCHLOROthiazide 25 MG TAB PO SCH (08:57)
[2022-10-24] MEDS: MELOXICAM 7.5 MG TAB PO SCH (08:58)
[2022-10-24] MEDS: CEROVITE ADV FORMULA TAB PO SCH (08:59)
[2022-10-24] MEDS: predniSONE 20 MG TAB PO SCH ×2 (09:00→21:10)
[2022-10-24] MEDS: INSULIN ASPART PER UNIT SC SCH ×4 (09:28→21:08)
[2022-10-24] MEDS: HEPARIN SOD 5,000 UNIT/0.5 ML VIAL SQ SCH ×2 (09:33→21:11)
[2022-10-24] MEDS: ACETAMINOPHEN 325 MG TAB PO PRN (09:37)
--- NOTE | 2022-10-24 12:51 | Hospitalist Progress Note ---
Date of Service October 24, 2022 Assessment & Plan (1) Intractable back pain: Plan: Improved with parenteral steroids. Transitioned on October 22 to oral prednisone which will eventually be tapered off. Appreciate orthopedic consultation and recommendations. No surgery planned this admission (2) Hyperlipidemia: Plan: Stable with current medication therapy (3) Prediabetes: Plan: Monitor glucose levels. Sliding scale coverage as needed. Avoid concentrated sweets (4) B-cell lymphoproliferative disorder: Plan: No treatment indicated emergently. We will follow-up with oncology as an outpatient (5) Hypertension: Plan: Stable with current medical management (6) BPH loc w urin obs/LUTS: Plan: Stable with current medical management Plan Awaiting insurance authorization for discharge to [facility] on oral prednisone tapering dose Admission and Anticipated Discharge Date Admission Date: October 18, 2022 Subjective Alert and oriented. Stable. Continuing to wait for insurance approval for discharge to [facility]. No new problems. Review of Systems Review of Systems: Constitutional-no fever or chills ENT-no blurred vision, no double vision, no epistaxis, no sore throat Respiratory-no cough, no wheezing, no shortness of breath Cardiac-no palpitations, no chest pain, no syncope GI-no nausea, vomiting, diarrhea, melena, hematochezia -no urinary retention, no urinary incontinence, no dysuria, no hematuria Musculoskeletal-exacerbation of chronic low back pain with limited range of motion as expected Skin-no bruising, no rashes, no pruritus Neuro-no isolated weakness, no paresthesia, no weakness Psych-no depression, no anxiety Physical Exam Physical Exam: General-alert and oriented x3, fidgety HEENT-head atraumatic and normocephalic, pupils equal and reactive to light, extraocular muscles intact Neck-no lymphadenopathy or thyromegaly, trachea midline Chest-clear to auscultation percussion. No rales wheezing or rhonchi Cardiac-regular rate and rhythm, normal S1 and S2, no murmurs Abdomen-normal bowel sounds, nontender, no hepatosplenomegaly Extremities-no cyanosis, clubbing, or edema MusculoskeletalLimited range of motion lumbar spine as expected due to pain Neuro-cranial nerves II through XII intact, motor and sensory function within normal limits, strength symmetrical 5 no focal deficits Psych-normal affect, normal mood Results & Data Results & Data ([facility]) Vital Signs (Past 12 Hours) Vital Signs Temp Pulse Pulse Resp BP Pulse Ox O2 Del Method 10/24/22 07:32 36.7 C 94 H 18 106/70 96 Room Air 10/24/22 06:54 36.6 C 92 H 18 124/80 96 Room Air Laboratory Results 10/20/22 06:19 10/20/22 06:19 PG Care Time/CCT Total # of Minutes Spent Total Time Spent with Patient: Total time spent is greater than 50% in coordination of care (as documented) at patient's floor/unit and/or counseling patient: Coding Level of Care Code 01926 SUB INP/OBS CARE 2/35MIN Diagnoses Intractable back pain M54.9 Hyperlipidemia E78.5 Prediabetes R73.03 B-cell lymphoproliferative disorder D47.9 Hypertension I10 BPH loc w urin obs/LUTS N40.1
[2022-10-24] MEDS: GABAPENTIN 600 MG TAB PO SCH (21:10)
[2022-10-24] MEDS: PRAVASTATIN SOD 40 MG TAB PO SCH (21:51)
[2022-10-25] MEDS: HYDROmorphone INJ 1 MG/ML SYRINGE IV PRN (01:45)
[2022-10-25] MEDS: INSULIN ASPART PER UNIT SC SCH ×4 (09:52→21:55)
[2022-10-25] MEDS: hydroCHLOROthiazide 25 MG TAB PO SCH (09:53)
[2022-10-25] MEDS: GABAPENTIN 300 MG CAP PO SCH ×2 (09:53→13:15)
[2022-10-25] MEDS: CYANOCOBALAMIN (B-12) 500 MCG TABLET PO SCH (09:53)
[2022-10-25] MEDS: amLODIPine BESYLATE 5 MG TAB PO SCH (09:53)
[2022-10-25] MEDS: DULoxetine HCL 60 MG CAP PO SCH (09:53)
[2022-10-25] MEDS: CEROVITE ADV FORMULA TAB PO SCH (09:54)
[2022-10-25] MEDS: MELOXICAM 7.5 MG TAB PO SCH (09:54)
[2022-10-25] MEDS: HEPARIN SOD 5,000 UNIT/0.5 ML VIAL SQ SCH ×2 (09:54→19:52)
[2022-10-25] MEDS: DOCUSATE SODIUM 100 MG CAP PO SCH ×2 (10:38→19:51)
--- NOTE | 2022-10-25 12:12 | Hospitalist Progress Note ---
Date of Service October 25, 2022 Assessment & Plan (1) Intractable back pain: Plan: Improved with parenteral steroids. Transitioned on October 22 to oral prednisone which will eventually be tapered off. Appreciate orthopedic consultation and recommendations. No surgery planned this admission (2) Hyperlipidemia: Plan: Stable with current medication therapy (3) Prediabetes: Plan: Monitor glucose levels. Sliding scale coverage as needed. Avoid concentrated sweets (4) B-cell lymphoproliferative disorder: Plan: No treatment indicated emergently. We will follow-up with oncology as an outpatient (5) Hypertension: Plan: Stable with current medical management (6) BPH loc w urin obs/LUTS: Plan: Stable with current medical management Plan IPR has been denied by insurance. Hopefully SNF will be approved. Continue oral prednisone therapy and taper off eventually Admission and Anticipated Discharge Date Admission Date: October 18, 2022 Subjective The patient was sleeping at the time of my rounds today. IPR has been denied. I tried to call peer to peer but the office is closed today. This will have to be done on Thursday. Hopefully SNF placement will be approved. Review of Systems Review of Systems: Constitutional-no fever or chills ENT-no blurred vision, no double vision, no epistaxis, no sore throat Respiratory-no cough, no wheezing, no shortness of breath Cardiac-no palpitations, no chest pain, no syncope GI-no nausea, vomiting, diarrhea, melena, hematochezia -no urinary retention, no urinary incontinence, no dysuria, no hematuria Musculoskeletal-exacerbation of chronic low back pain with limited range of motion as expected Skin-no bruising, no rashes, no pruritus Neuro-no isolated weakness, no paresthesia, no weakness Psych-no depression, no anxiety Physical Exam Physical Exam: General-alert and oriented x3, fidgety HEENT-head atraumatic and normocephalic, pupils equal and reactive to light, extraocular muscles intact Neck-no lymphadenopathy or thyromegaly, trachea midline Chest-clear to auscultation percussion. No rales wheezing or rhonchi Cardiac-regular rate and rhythm, normal S1 and S2, no murmurs Abdomen-normal bowel sounds, nontender, no hepatosplenomegaly Extremities-no cyanosis, clubbing, or edema MusculoskeletalLimited range of motion lumbar spine as expected due to pain Neuro-cranial nerves II through XII intact, motor and sensory function within normal limits, strength symmetrical 5 no focal deficits Psych-normal affect, normal mood Results & Data Results & Data ([facility]) Vital Signs (Past 12 Hours) Vital Signs Temp Pulse Resp BP Pulse Ox O2 Del Method 10/25/22 07:24 95 Room Air 10/25/22 07:22 36.5 C 85 16 108/57 L 93 Room Air Laboratory Results 10/20/22 06:19 10/20/22 06:19 PG Care Time/CCT Total # of Minutes Spent Total Time Spent with Patient: Total time spent is greater than 50% in coordination of care (as documented) at patient's floor/unit and/or counseling patient: Coding Level of Care Code 30645 SUB INP/OBS CARE 2/35MIN Diagnoses Intractable back pain M54.9 Hyperlipidemia E78.5 Prediabetes R73.03 B-cell lymphoproliferative disorder D47.9 Hypertension I10 BPH loc w urin obs/LUTS N40.1
[2022-10-25] MEDS: predniSONE 10 MG TABLET PO SCH ×2 (13:15→19:51)
[2022-10-25] MEDS: predniSONE 20 MG TAB PO SCH (14:47)
[2022-10-25] MEDS: PRAVASTATIN SOD 40 MG TAB PO SCH (19:51)
[2022-10-25] MEDS: ACETAMINOPHEN 325 MG TAB PO PRN (19:51)
[2022-10-25] MEDS: GABAPENTIN 600 MG TAB PO SCH (19:52)
[2022-10-26] MEDS: HYDROmorphone INJ 1 MG/ML SYRINGE IV PRN (00:11)
[2022-10-26] MEDS: CYANOCOBALAMIN (B-12) 500 MCG TABLET PO SCH (07:52)
[2022-10-26] MEDS: HEPARIN SOD 5,000 UNIT/0.5 ML VIAL SQ SCH ×2 (07:52→20:20)
[2022-10-26] MEDS: MELOXICAM 7.5 MG TAB PO SCH (07:52)
[2022-10-26] MEDS: hydroCHLOROthiazide 25 MG TAB PO SCH (07:52)
[2022-10-26] MEDS: CEROVITE ADV FORMULA TAB PO SCH (07:52)
[2022-10-26] MEDS: DULoxetine HCL 60 MG CAP PO SCH (07:53)
[2022-10-26] MEDS: GABAPENTIN 300 MG CAP PO SCH ×2 (07:53→14:01)
[2022-10-26] MEDS: predniSONE 10 MG TABLET PO SCH ×3 (07:54→20:21)
[2022-10-26] MEDS: amLODIPine BESYLATE 5 MG TAB PO SCH (07:54)
[2022-10-26] MEDS: DOCUSATE SODIUM 100 MG CAP PO SCH ×2 (07:59→20:22)
[2022-10-26] MEDS: INSULIN ASPART PER UNIT SC SCH ×4 (08:49→20:32)
--- NOTE | 2022-10-26 12:02 | Hospitalist Progress Note ---
Date of Service October 26, 2022 Assessment & Plan (1) Intractable back pain: Plan: Improved with parenteral steroids. Transitioned on October 22 to oral prednisone which will eventually be tapered off. Appreciate orthopedic consultation and recommendations. No surgery planned this admission (2) Hyperlipidemia: Plan: Stable with current medication therapy (3) Prediabetes: Plan: Monitor glucose levels. Sliding scale coverage as needed. Avoid concentrated sweets (4) B-cell lymphoproliferative disorder: Plan: No treatment indicated emergently. We will follow-up with oncology as an outpatient (5) Hypertension: Plan: Stable with current medical management (6) BPH loc w urin obs/LUTS: Plan: Stable with current medical management Plan IPR has been denied by insurance. Hopefully SNF will be approved quickly. Otherwise he simply wants to go home. Continue oral prednisone therapy and taper off eventually Admission and Anticipated Discharge Date Admission Date: October 18, 2022 Subjective Alert and oriented. He is ambulating fairly well. He is considering just going home since IPR was denied by insurance. He will go to SNF if this is approved quickly however. Case management involved Review of Systems Review of Systems: Constitutional-no fever or chills ENT-no blurred vision, no double vision, no epistaxis, no sore throat Respiratory-no cough, no wheezing, no shortness of breath Cardiac-no palpitations, no chest pain, no syncope GI-no nausea, vomiting, diarrhea, melena, hematochezia -no urinary retention, no urinary incontinence, no dysuria, no hematuria Musculoskeletal-exacerbation of chronic low back pain with limited range of motion as expected Skin-no bruising, no rashes, no pruritus Neuro-no isolated weakness, no paresthesia, no weakness Psych-no depression, no anxiety Physical Exam Physical Exam: General-alert and oriented x3, fidgety HEENT-head atraumatic and normocephalic, pupils equal and reactive to light, extraocular muscles intact Neck-no lymphadenopathy or thyromegaly, trachea midline Chest-clear to auscultation percussion. No rales wheezing or rhonchi Cardiac-regular rate and rhythm, normal S1 and S2, no murmurs Abdomen-normal bowel sounds, nontender, no hepatosplenomegaly Extremities-no cyanosis, clubbing, or edema MusculoskeletalLimited range of motion lumbar spine as expected due to pain Neuro-cranial nerves II through XII intact, motor and sensory function within normal limits, strength symmetrical 5 no focal deficits Psych-normal affect, normal mood Results & Data Results & Data ([facility]) Vital Signs (Past 12 Hours) Vital Signs Temp Pulse Resp BP Pulse Ox O2 Del Method 10/26/22 07:48 36.4 C L 81 16 120/62 93 Room Air Laboratory Results 10/20/22 06:19 10/20/22 06:19 PG Care Time/CCT Total # of Minutes Spent Total Time Spent with Patient: Total time spent is greater than 50% in coordination of care (as documented) at patient's floor/unit and/or counseling patient: Coding Level of Care Code 36971 SUB INP/OBS CARE 2/35MIN Diagnoses Intractable back pain M54.9 Hyperlipidemia E78.5 Prediabetes R73.03 B-cell lymphoproliferative disorder D47.9 Hypertension I10 BPH loc w urin obs/LUTS N40.1
[2022-10-26] MEDS: ACETAMINOPHEN 325 MG TAB PO PRN (17:43)
[2022-10-26] MEDS: PRAVASTATIN SOD 40 MG TAB PO SCH (20:20)
[2022-10-26] MEDS: GABAPENTIN 600 MG TAB PO SCH (20:20)
[2022-10-27] MEDS: HYDROmorphone INJ 1 MG/ML SYRINGE IV PRN (01:40)
[2022-10-27] MEDS: predniSONE 10 MG TABLET PO SCH ×2 (08:08→12:31)
[2022-10-27] MEDS: DULoxetine HCL 60 MG CAP PO SCH (08:08)
[2022-10-27] MEDS: MELOXICAM 7.5 MG TAB PO SCH (08:08)
[2022-10-27] MEDS: CEROVITE ADV FORMULA TAB PO SCH (08:08)
[2022-10-27] MEDS: CYANOCOBALAMIN (B-12) 500 MCG TABLET PO SCH (08:08)
[2022-10-27] MEDS: GABAPENTIN 300 MG CAP PO SCH ×2 (08:08→12:31)
[2022-10-27] MEDS: amLODIPine BESYLATE 5 MG TAB PO SCH (08:09)
[2022-10-27] MEDS: hydroCHLOROthiazide 25 MG TAB PO SCH (08:09)
[2022-10-27] MEDS: HEPARIN SOD 5,000 UNIT/0.5 ML VIAL SQ SCH (08:09)
[2022-10-27] MEDS: DOCUSATE SODIUM 100 MG CAP PO SCH (08:10)
[2022-10-27] MEDS: INSULIN ASPART PER UNIT SC SCH ×2 (08:24→12:32)
[2022-10-27] MEDS ORDERED: oxyCODONE HCL IR 5 MG TAB (IMMEDIATE RELEASE) PO PRN (16:04)
== END 2022-10-27 17:17 | disposition home health service (06) ==
LOC: ED 13:04 → 2W 13:04 → SUATTDRO 17:00 → 2W 19:09 → 2N 10-18 17:58 → SUATTDRO 10-18 19:04 → 3N 10-18 22:45
DX: D47.9 Neoplasm of uncertain behavior of lymphoid, hematopoietic and related tissue, unspecified; F11.20 Opioid dependence, uncomplicated; R73.03 Prediabetes; Y79.2 Prosthetic and other implants, materials and accessory orthopedic devices associated with adverse incidents; I10 Essential (primary) hypertension; Z87.891 Personal history of nicotine dependence; E78.5 Hyperlipidemia, unspecified; Y83.2 Surgical operation with anastomosis, bypass or graft as the cause of abnormal reaction of the patient, or of later complication, without mention of misadventure at the time of the procedure; N40.1 Benign prostatic hyperplasia with lower urinary tract symptoms; G89.29 Other chronic pain; T84.038A Mechanical loosening of other internal prosthetic joint, initial encounter

== ENCOUNTER 2023-02-06 14:30 | Inpatient (IN) ==
--- NOTE | 2023-02-06 14:55 | Emergency Department Note ---
Impression & Plan Acute exacerbation of chronic low back pain, Localized swelling of both lower legs, Generalized weakness, Frequent falls ED Provider Note NAME: FREDDY ESPINOZA AGE: 82 SEX: M : 1940 ARRIVES VIA: Ambulance INFORMANT: Patient, ED PROVIDER(S): Vivek Carreno MD CHIEF COMPLAINT: Back pain, falls, leg swelling MEDICAL DECISION MAKING: Patient presents due to concern for worsening weakness falls most recently within the last week back pain and leg swelling. The patient's weight is up approximate 4 kg since January 26. IV was established blood work is obtained. The patient's blood work shows a white count of 23 with the patient has a known prior history of B-cell lymphoproliferative disorder. This appears relatively u nchanged from prior and the patient does not complain of infectious symptoms. Patient does have mild anemia hemoglobin of 11.4 with a normal platelet count. Kidney function is unremarkable but with elevated BUN. Fluids held at this time given the patient's lower extremity edema and weight gain. Sodium 135. Patient was ordered a dose of IV Lasix. TSH and BNP are normal. COVID-negative. Urin alysis without evidence of obvious blood or infection. The patient's chest x- ray shows cardiomegaly with atelectatic changes. Patient's lumbar CT shows right paraspinal hyperdense ovoid structure similar-appearing 3.2 cm structure within the central canal of the interspace. There is severe central canal stenosis which are progressed from prior imaging completed in August 2022. Patient has related that he is a nonsurgical candidate. Patient has no saddle anesthesia or bowel or bladder incontinence. Patient has unchanged appearance of T12 deformity evidence of hardware with loosening and chronic fractures of the posterior months of T12. Healing subacute nondisplaced fractures left 06 28. I did speak the on-call hospitalist Dr. Cervantes and the patient was admitted to the medicine service Prior /Outside records reviewed: Patient's weight is up 4 kg from January 26. I did review a pain management visit with Ronnie Gregory from February 02. The patient does have chronic back pain degenerative disc disease spinal stenosis hardware failure. Patient did have his Oxy IR increased and that they were going to decrease his Butrans. Differential diagnosis: Kidney dysfunction, liver dysfunction, volume overload, CHF, beer portal javi, low protein state, fracture, sprain, strain among others were considered Diagnostics, as interpreted by me: ECG: Sinus with first-degree AV block, rate of 77, prolonged MT, right bundle branch block with wide QRS, left axis deviation. No ST elevations. Cardiac monitoring: An order was placed for continuous cardiac monitoring. The monitor shows a rate of 72 with sinus rhythm. Patient was placed on pulse oximetry Medical decision rules: None Imaging studies: See below I informally reviewed the patient's chest x-ray which shows no obvious pneumothorax. HPI: Patient presents due to concern for worsening weakness and leg swelling. The patient has noticed the leg and foot swelling just over the last 3 to 4 days. Patient denies any chest pains or shortness of breath. The patient has had increasing fatigue as well as low and upper back pain ongoing since he had procedures completed back in 2019. Since then the patient has been noted to have hardware loosening and reportedly is not a surgical candidate. The patient has had several falls over the last 5 weeks most recently about 1 week ago. The patient denies any head strike or LOC. Patient did have difficulty getting up off the commode this morning and was unable to get up secondary to some associated generalized weakness. Patient did not complain of any chest pain or shortness of breath. The patient does take OxyContin for his back pain which does help. Patient did not fall this morning PAST MEDICAL HISTORY: See Below PAST SURGICAL HISTORY: See Below SOCIAL HISTORY: See Below HOME MEDICATIONS: See Below ALLERGIES: See Below VITALS: See Below PHYSICAL EXAMINATION: GENERAL: NAD, wearing glasses non-toxic. EYE EXAM: Normal conjunctiva. PERRL, no anisocoria and EOM's grossly intact w/o pain. NECK: Supple, no nuchal rigidity, no adenopathy, non-tender. No signs of meningismus. FROM of the neck with good chin to chest and neck extension. No stridor. LUNGS: Bibasilar crackles noted. Normal chest wall mechanics. HEART: NSR, no MRG. ABDOMEN: Abdomen soft, non-tender, no masses, no rebound or guarding. BACK: Well-healed midline incisional scars without overlying skin changes, mild TTP in the lower lumbar spine. SKIN: No rashes and no bruising. UPPER EXTREMITIES: Upper extremities are grossly normal. LOWER EXTREMITIES: Grossly normal, 2-3+ symmetric bilateral lower extremity edema without any calf pain or erythema NEURO EXAM: A&O x3, cranial nerves II-XII grossly intact, normal speech, moves all 4 extremities. Past Med/Surg History Medical History B-cell lymphoproliferative disorder BPH (benign prostatic hyperplasia) Chronic back pain TO LEGS R/L ON OCC History of adenomatous polyp of colon Hyperlipidemia Hypertension Opioid dependence Osteoarthritis Postlaminectomy syndrome of lumbosacral region Postlaminectomy syndrome of thoracic region Scoliosis Tubulovillous adenoma of colon Surgical History Cancer BASAL CELL FACE BACK-REMOVAL History of arthroscopy LEFT KNEE History of colonoscopy Status post laminectomy with spinal fusion Family History Father CHF (congestive heart failure) Neuropathy Sister Breast cancer Mother Dementia Denies family history of Ovarian cancer Prostate cancer Diabetes Coronary heart disease Myocardial infarction Lung cancer Colorectal cancer Social History Smoking Status: Never smoker Tobacco Type: Cigarettes Age Started Using Tobacco: 17; Age Quit Using Tobacco: 29; packs per day: 1; Cigarettes Per Day: 1 PPD; Second Hand Exposure: No; Do You Dip or Chew Tobacco: No; Hx Alcohol Use: No Hx Substance Use: No Preferred Language: Lao Communication Ability: Effective Visual Impairment: No Limitations Hearing Ability: Normal 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 Beliefs That Will Affect Care: None marital status: Current Living Situation: Spouse Current Living Situation Comment: home with current occupational status: retired current occupation: [employer] How many Children do You have: 2 Other Information That Helps Us Care for You: No Feels Safe at Home: Yes Safety Concerns: Feels Safe At This Time Childhood Exposure to Second-Hand Smoke: No Diet: regular caffeine: Yes during the past year weight has: remained stable Dental Care, Regularly: Yes Physical Activity Frequency: 1-2 Times per Week Physical Activity Frequency Comment: strength training, 60 minutes Seatbelt Use: always Sunscreen Use: Yes Assistive Devices: Walker Allergies Allergies Allergy/AdvReac Type Severity Reaction Status Date / Time simvastatin AdvReac Intermediate Rash Verified 01/26/23 13:10 Home Meds Home Medications Medication Instructions Recorded Confirmed vit C 250 mg-vit E 90 mg-zinc 40 1 tab PO BID 10/19/18 02/06/23 mg-copper 1 qb-prrldo-iktoxw capsule (PreserVision AREDS-2) docusate sodium 100 mg capsule 100 mg PO BID 05/16/19 02/06/23 cholecalciferol (vitamin D3) 25 25 mcg PO DAILY 10/26/20 02/06/23 mcg (1,000 unit) tablet cyanocobalamin (vitamin B-12) 500 500 mcg PO DAILY 01/02/22 02/06/23 mcg tablet Previous Rx's Medication Instructions Recorded naloxone 4 mg/actuation nasal spray 4 mg intranasal Q3M PRN opioid 04/15/21 overdose #2 ea pravastatin 40 mg tablet 40 mg PO HS #100 tabs 01/20/22 hydrochlorothiazide 25 mg tablet 25 mg PO DAILY #90 tabs 03/05/22 gabapentin 300 mg capsule 300 mg PO .COMPLEX #120 caps 08/28/22 amlodipine 5 mg tablet 5 mg PO DAILY #90 tabs 11/10/22 duloxetine 60 mg capsule,delayed 60 mg PO DAILY #90 caps 11/10/22 release meloxicam 15 mg tablet 15 mg PO DAILY #90 tabs 11/10/22 buprenorphine 5 mcg/hour weekly 1 patch transdermal .COMPLEX #4 ea 01/27/23 transdermal patch (Butrans) oxycodone 5 mg tablet 5 mg PO QID PRN Lumbar post 02/02/23 laminectomy syndrome #120 tabs Results & Data (ED) Vital Signs Vital Signs - 24 hr 02/06/23 14:38 02/06/23 14:38 02/06/23 15:47 Temperature 37.0 C Temperature Source Oral Oral Pulse Rate 84 82 Pulse Rate from SpO2 Sensor Respiratory Rate 18 Blood Pressure 123/78 Blood Pressure Mean 93 Blood Pressure Position Sitting Pulse Oximetry 95 Oxygen Delivery Method Room Air Sepsis Recent Fever Within 48 Hours No Sepsis New/Unexplained Change in Mental Status No Sepsis Action Taken by Nursing No Action Required 02/06/23 16:02 02/06/23 15:47 02/06/23 16:00 Temperature Temperature Source Pulse Rate 92 H 73 121 H Pulse Rate from SpO2 Sensor 75 Respiratory Rate 16 15 22 Blood Pressure 126/67 130/70 Blood Pressure Mean 86 100 Blood Pressure Position Pulse Oximetry 98 96 96 Oxygen Delivery Method Room Air Sepsis Recent Fever Within 48 Hours Sepsis New/Unexplained Change in Mental Status Sepsis Action Taken by Halfway Medications Current Medication List: was personally reviewed by me Laboratory Data Attestation: I reviewed the patient's lab results. 02/06/23 14:47 02/06/23 14:47 Lab Results 02/06/23 02/06/23 02/06/23 Range/Units 14:47 14:47 14:47 WBC 23.87 H (4.8-10.8) K/ul RBC 3.96 L (4.70-6.10) M/uL Hgb 11.4 L (14.0-18.0) g/dl Hct 34.9 L (42.0-52.0) % MCV 88.1 (80.0-100.0) fL MCH 28.8 (25.0-34.0) pg MCHC 32.7 (32.0-36.0) g/dL RDW Std Deviation 54.3 H (36.4-46.3) fL RDW Coeff of Bhavesh 16.8 H (11.5-14.5) % Plt Count 293 (130-400) K/uL MPV 8.6 L (9.4-12.4) fL Immature Gran % (Auto) 0.4 % Neut % (Auto) 32.7 % Lymph % (Auto) 54.0 % [place] % (Auto) 11.7 % Eos % (Auto) 0.7 % Baso % (Auto) 0.5 % Neut # (Auto) 7.79 H (1.40-6.50) K/uL Lymph # (Auto) 12.90 H (1.2-3.4) K/uL [place] # (Auto) 2.80 H (0.11-0.59) K/uL Eos # (Auto) 0.17 (0-0.50) K/uL Baso # (Auto) 0.11 (0-0.2) K/uL Immature Gran # (Auto) 0.10 (0.01-0.20) K/uL Hairy Cells Present PT 11.5 (9.0-12.0) Seconds INR 1.1 (0.9-1.1) Sodium 135 L (136-145) mmol/L Potassium 3.9 (3.5-5.1) mmol/L Chloride 97 L (98-107) mmol/L Carbon Dioxide 30 (21-32) mmol/L Anion Gap 8 (3-11) BUN 29 H (6-23) mg/dl Creatinine 1.16 (0.6-1.4) mg/dl Est Cr Clr Drug Dosing 55.3 ml/min Est GFR ( Amer) 67.1 ml/min Est GFR (Non-Af Amer) 57.9 ml/min BUN/Creatinine Ratio 25.0 H (10-20) Glucose 141 H (70-99(Fasting)) mg/dl Calcium 9.8 (8.6-10.3) mg/dl Magnesium 1.9 (1.7-2.4) mg/dl Total Bilirubin 0.4 (0.2-1.0) mg/dl AST 19 (13-39) U/L ALT 11 (7-52) U/L Alkaline Phosphatase 94 (34-104) U/L Troponin I High Sens 6.4 (0-20) pg/ml B-Natriuretic Peptide (0-100) pg/ml Total Protein 7.6 (6.0-8.3) gm/dl Albumin 4.3 (3.4-5.0) gm/dl Globulin 3.3 (2.5-4.0) gm/dl Albumin/Globulin Ratio 1.3 (0.9-2) TSH (0.300-4.500) uIu/ml Urine Color Urine Appearance (Clear) Urine pH (4.5-7.5) Ur Specific [place] (1.000-1.030) Urine Protein (Negative) Urine Glucose (UA) (Negative) Urine Ketones (Negative) Urine Blood (Negative) Urine Nitrite (Negative) Urine Bilirubin (Negative) Urine Urobilinogen (Negative) Ur Leukocyte Esterase (Negative) SARS-CoV-2, RNA, NAAT (NEGATIVE) 02/06/23 02/06/23 02/06/23 Range/Units 14:47 14:47 15:52 WBC (4.8-10.8) K/ul RBC (4.70-6.10) M/uL Hgb (14.0-18.0) g/dl Hct (42.0-52.0) % MCV (80.0-100.0) fL MCH (25.0-34.0) pg MCHC (32.0-36.0) g/dL RDW Std Deviation (36.4-46.3) fL RDW Coeff of Bhavesh (11.5-14.5) % Plt Count (130-400) K/uL MPV (9.4-12.4) fL Immature Gran % (Auto) % Neut % (Auto) % Lymph % (Auto) % [place] % (Auto) % Eos % (Auto) % Baso % (Auto) % Neut # (Auto) (1.40-6.50) K/uL Lymph # (Auto) (1.2-3.4) K/uL [place] # (Auto) (0.11-0.59) K/uL Eos # (Auto) (0-0.50) K/uL Baso # (Auto) (0-0.2) K/uL Immature Gran # (Auto) (0.01-0.20) K/uL Hairy Cells PT (9.0-12.0) Seconds INR (0.9-1.1) Sodium (136-145) mmol/L Potassium (3.5-5.1) mmol/L Chloride (98-107) mmol/L Carbon Dioxide (21-32) mmol/L Anion Gap (3-11) BUN (6-23) mg/dl Creatinine (0.6-1.4) mg/dl Est Cr Clr Drug Dosing ml/min Est GFR ( Amer) ml/min Est GFR (Non-Af Amer) ml/min BUN/Creatinine Ratio (10-20) Glucose (70-99(Fasting)) mg/dl Calcium (8.6-10.3) mg/dl Magnesium (1.7-2.4) mg/dl Total Bilirubin (0.2-1.0) mg/dl AST (13-39) U/L ALT (7-52) U/L Alkaline Phosphatase (34-104) U/L Troponin I High Sens (0-20) pg/ml B-Natriuretic Peptide 49 (0-100) pg/ml Total Protein (6.0-8.3) gm/dl Albumin (3.4-5.0) gm/dl Globulin (2.5-4.0) gm/dl Albumin/Globulin Ratio (0.9-2) TSH 3.438 (0.300-4.500) uIu/ml Urine Color Urine Appearance (Clear) Urine pH (4.5-7.5) Ur Specific [place] (1.000-1.030) Urine Protein (Negative) Urine Glucose (UA) (Negative) Urine Ketones (Negative) Urine Blood (Negative) Urine Nitrite (Negative) Urine Bilirubin (Negative) Urine Urobilinogen (Negative) Ur Leukocyte Esterase (Negative) SARS-CoV-2, RNA, NAAT NEGATIVE (NEGATIVE) 02/06/23 Range/Units 15:55 WBC (4.8-10.8) K/ul RBC (4.70-6.10) M/uL Hgb (14.0-18.0) g/dl Hct (42.0-52.0) % MCV (80.0-100.0) fL MCH (25.0-34.0) pg MCHC (32.0-36.0) g/dL RDW Std Deviation (36.4-46.3) fL RDW Coeff of Bhavesh (11.5-14.5) % Plt Count (130-400) K/uL MPV (9.4-12.4) fL Immature Gran % (Auto) % Neut % (Auto) % Lymph % (Auto) % [place] % (Auto) % Eos % (Auto) % Baso % (Auto) % Neut # (Auto) (1.40-6.50) K/uL Lymph # (Auto) (1.2-3.4) K/uL [place] # (Auto) (0.11-0.59) K/uL Eos # (Auto) (0-0.50) K/uL Baso # (Auto) (0-0.2) K/uL Immature Gran # (Auto) (0.01-0.20) K/uL Hairy Cells PT (9.0-12.0) Seconds INR (0.9-1.1) Sodium (136-145) mmol/L Potassium (3.5-5.1) mmol/L Chloride (98-107) mmol/L Carbon Dioxide (21-32) mmol/L Anion Gap (3-11) BUN (6-23) mg/dl Creatinine (0.6-1.4) mg/dl Est Cr Clr Drug Dosing ml/min Est GFR ( Amer) ml/min Est GFR (Non-Af Amer) ml/min BUN/Creatinine Ratio (10-20) Glucose (70-99(Fasting)) mg/dl Calcium (8.6-10.3) mg/dl Magnesium (1.7-2.4) mg/dl Total Bilirubin (0.2-1.0) mg/dl AST (13-39) U/L ALT (7-52) U/L Alkaline Phosphatase (34-104) U/L Troponin I High Sens (0-20) pg/ml B-Natriuretic Peptide (0-100) pg/ml Total Protein (6.0-8.3) gm/dl Albumin (3.4-5.0) gm/dl Globulin (2.5-4.0) gm/dl Albumin/Globulin Ratio (0.9-2) TSH (0.300-4.500) uIu/ml Urine Color Yellow Urine Appearance Clear (Clear) Urine pH 6.0 (4.5-7.5) Ur Specific [place] 1.015 (1.000-1.030) Urine Protein Negative (Negative) Urine Glucose (UA) Negative (Negative) Urine Ketones Negative (Negative) Urine Blood Negative (Negative) Urine Nitrite Negative (Negative) Urine Bilirubin Negative (Negative) Urine Urobilinogen Negative (Negative) Ur Leukocyte Esterase Negative (Negative) SARS-CoV-2, RNA, NAAT (NEGATIVE) Administered Medications Acetaminophen (Acetaminophen 500 Mg Tab) 1,000 mg PO TID [facility] Stop: 03/08/23 20:59 Last Admin: 02/07/23 09:32 Dose: 1,000 mg Documented By: Admin: 02/06/23 20:58 Dose: 1,000 mg Documented By: JOSE Buprenorphine HCl (Buprenorphine 5 Mcg/Hr Tdsy) 10 mcg TD Q7D [facility] Stop: 02/13/23 08:59 Last Admin: 02/06/23 21:05 Dose: 10 mcg Documented By: JOSE Cyclobenzaprine HCl (Cyclobenzaprine Hcl 5 Mg Tab) 5 mg PO BID [facility] Stop: 03/08/23 20:59 Last Admin: 02/07/23 09:31 Dose: 5 mg Documented By: Admin: 02/06/23 20:58 Dose: 5 mg Documented By: [facility]CI Docusate Sodium (Docusate Sodium 100 Mg Cap) 100 mg PO BID [facility] Stop: 03/08/23 20:59 Last Admin: 02/07/23 09:32 Dose: 100 mg Documented By: Admin: 02/06/23 20:58 Dose: 100 mg Documented By: JOSE Duloxetine HCl (Duloxetine Hcl 60 Mg Cap) 60 mg PO DAILY [facility] Stop: 03/09/23 08:59 Last Admin: 02/07/23 09:32 Dose: 60 mg Documented By: LIBBY Enoxaparin Sodium (Enoxaparin Inj 40 Mg/0.4 Ml Syr) 40 mg SQ Q24H [facility] Stop: 03/08/23 19:59 Last Admin: 02/06/23 20:59 Dose: 40 mg Documented By: JOSE Gabapentin (Gabapentin 300 Mg Cap) 300 mg PO BID@0900,1400 [facility] Stop: 03/09/23 08:59 Last Admin: 02/07/23 09:31 Dose: 300 mg Documented By: LIBBY Gabapentin (Gabapentin 300 Mg Cap) 600 mg PO QPM [facility] Stop: 03/08/23 20:59 Last Admin: 02/06/23 20:59 Dose: 600 mg Documented By: JOSE Hydrochlorothiazide (Hydrochlorothiazide 25 Mg Tab) 25 mg PO DAILY [facility] Stop: 03/09/23 08:59 Last Admin: 02/07/23 09:32 Dose: 25 mg Documented By: LIBBY Meloxicam (Meloxicam 7.5 Mg Tab) 15 mg PO DAILY [facility] Stop: 03/09/23 08:59 Last Admin: 02/07/23 09:33 Dose: 15 mg Documented By: LIBBY Davisaneous (Check Buprenorphine Patch) 1 each N/A QS [facility] Stop: 03/09/23 00:00 Last Admin: 02/07/23 08:41 Dose: 1 each Documented By: Admin: 02/07/23 00:35 Dose: 1 each Documented By: JOSE Geiger (Remove & Waste Butrans Patch 1 Ea Ea) 1 each N/A Q7D@0900 [facility] Stop: 03/08/23 19:29 Last Admin: 02/06/23 21:00 Dose: 1 each Documented By: JOSE Oxycodone HCl (Oxycodone Hcl Ir 5 Mg Tab (Immediate Release)) 5 mg PO QID PRN PRN Reason: Lumbar post laminectomy syndrome Stop: 02/20/23 19:17 Last Admin: 02/07/23 09:30 Dose: 5 mg Documented By: DLS Pravastatin Sodium (Pravastatin Sod 40 Mg Tab) 40 mg PO HS [facility] Stop: 03/08/23 20:59 Last Admin: 02/06/23 20:58 Dose: 40 mg Documented By: JOSE Discontinued Medications Furosemide (Furosemide 40 Mg/4 Ml Vial) 40 mg IV ONE ONE Stop: 02/06/23 16:16 Last Admin: 02/06/23 16:34 Dose: 40 mg Documented By: THUY Acetaminophen (Ofirmev) 1,000 mg in 100 mls @ 400 mls/hr IV NOW STA Stop: 02/06/23 17:54 Last Infusion: 02/06/23 19:49 Dose: 0 mls/hr Documented By: Admin: 02/06/23 18:01 Dose: 400 mls/hr Documented By: THUY Ioversol (Optiray 320 100ml) 93 ml IV ONCE ONE Stop: 02/06/23 20:51 Last Admin: 02/06/23 20:50 Dose: 93 ml Documented By: EDK Morphine Sulfate (Morphine Sulfate 2 Mg/Ml Carp) 2 mg IV NOW STA Stop: 02/06/23 17:41 Last Admin: 02/06/23 18:01 Dose: 2 mg Documented By: THUY Imaging Data Radiologist's Impression: Chest X-Ray 02/06/23 15:10 XR chest 1V portable HISTORY: 82 years-old Male weakness acute weakness COMPARISON: 12/16/2021 TECHNIQUE: AP view of the chest FINDINGS: Cardiac silhouette is enlarged. Chronic right hemidiaphragmatic elevation. Hiatal hernia. No pneumothorax, pleural effusion, airspace consolidation or overt pulmonary edema. Unchanged chronic interstitial coarsening. Degenerative changes of the shoulders and spine. Extensive spinal fusion hardware. IMPRESSION: 1. Cardiomegaly without acute process. 2. Mild bibasilar atelectasis. 3. Hiatal hernia. ACT 112: Negative or not required by law. The above report was generated using voice recognition software. It may contain grammatical, syntax or spelling errors. Electronically signed by: Juma Abdalla M.D. 02/06/2023 3:[address] 02/06/23 15:10 CT lumbar spine wo con HISTORY: 82 years-old Male worsening LBP; h/o hardware loosening COMPARISON: 08/26/2022 TECHNIQUE: Multiple axial CT images of the lumbar spine were obtained without the use of IV contrast. A dose lowering technique was used consistent with the principals of ALARA. FINDINGS: Study is limited secondary to significant streak artifact from the extensive spinal fusion hardware. Atherosclerosis of the abdominal aorta. There is a 3.4 x 1.8 x 4.2 cm hyperdense right-sided paraspinal structure at T11-T12 which is new from prior. Similar-appearing hyperdense 3.2 cm focus is noted within the central canal at the T11-T12 level. Unchanged chronic fracture lines are noted within the posterior elements at T12. Chronic widening of the T12-L1 disc space with considerable amount of air within the disc space again noted. Chronic Schmorl's node/compression deformities in the thoracic spine are again noted. The right L2 screw is again noted extending through the L1-L2 disc space terminating within the L1 vertebral body. Bilateral iliac bolts are in place. Lucency around the left interpedicular screw at L5, both interpedicular screws at S1, the anterior screws at L5 and S1, and both iliac bolts indicate loosening. Lumbar levoscoliosis. Healing subacute nonspecific fractures of the left 11th and 12th ribs. IMPRESSION: 1. 4.2 cm ovoid circumscribed hyperdense right paraspinal structure at T11-T12 with similar appearing 3.2 cm structure within the central canal at this i nterspace. There is associated severe central canal stenosis. These findings are new/progressed compared to the 08/26/2022 study and favor calcified sequestered disc fragments. 2. Chronic compression deformities with extensive fusion hardware redemonstrated. 3. Evidence of hardware loosening with chronic fractures within the posterior elements at T12. 4. Unchanged appearance of the T12 deformity with progressive air in the T12-L1 disc space. 5. Healing subacute nondisplaced fractures of the left 11th and 12th ribs.. ACT 112: Negative or not required by law. The above report was generated using voice recognition software. It may contain grammatical, syntax or spelling errors. Electronically signed by: Juma Abdalla M.D. 02/06/2023 4:06 PM Discharge Plan Visit Data Chief Complaint: Weakness ED Provider: Vivek Carreno Discharge Problem: Acute exacerbation of chronic low back pain, Localized swelling of both lower legs, Generalized weakness, Frequent falls Patient Disposition: Admitted As Inpatient Discharge Instructions Interventions: ED Discharge Assessment Last Done: 02/06/23 18:44
--- NOTE | 2023-02-06 15:25 | XRay Report ---
XR chest 1V portable HISTORY: 82 years-old Male weakness acute weakness COMPARISON: 12/16/2021 TECHNIQUE: AP view of the chest FINDINGS: Cardiac silhouette is enlarged. Chronic right hemidiaphragmatic elevation. Hiatal hernia. No pneumoth orax, pleural effusion, airspace consolidation or overt pulmonary edema. Unchanged chronic interstiti al coarsening. Degenerative changes of the shoulders and spine. Extensive spinal fusion hardware. IMPRESSION: 1. Cardiomegaly without acute process. 2. Mild bibasilar atelectasis. 3. Hiatal hernia. ACT 112: Negative or not required by law. The above report was generated using voice recognition software. It may contain grammatical, syntax o r spelling errors. Electronically signed by: Juma Abdalla M.D. 02/06/2023 3:24 PM
[2023-02-06 15:52] LABS: Albumin Globulin Ratio 1.3 (0.9-2); Albumin Level 4.3 gm/dl (3.4-5.0); Bilirubin,Total 0.4 mg/dl (0.2-1.0); Calcium 9.8 mg/dl (8.6-10.3); Creatinine Clr Calc Pharmacy 55.3 ml/min; Est GFR (African American) 67.1 ml/min; Est GFR (Non-African American) 57.9 ml/min; Globulin 3.3 gm/dl (2.5-4.0); Magnesium 1.9 mg/dl (1.7-2.4); Potassium 3.9 mmol/L (3.5-5.1); Total Protein 7.6 gm/dl (6.0-8.3)
[2023-02-06 15:54] LABS: Hematocrit (blood only) 34.9 % (42.0-52.0); Hemoglobin 11.4 g/dl (14.0-18.0); INR 1.1 (0.9-1.1); Mean Corpuscular Hemoglobin 28.8 pg (25.0-34.0); Mean Corpuscular Hgb Conc 32.7 g/dL (32.0-36.0); Mean Corpuscular Volume 88.1 fL (80.0-100.0); Mean Platelet Volume 8.6 fL (9.4-12.4); Platelet Count 293 K/uL (130-400); Prothrombin Time 11.5 Seconds (9.0-12.0); RDW Coefficient of Variation 16.8 % (11.5-14.5); RDW Standard Deviation 54.3 fL (36.4-46.3); Red Blood Count 3.96 M/uL (4.70-6.10); White Blood Count 23.87 K/ul (4.8-10.8)
[2023-02-06 15:55] LABS: Basophils # (auto) 0.11 K/uL (0-0.2); Basophils % (auto) 0.5 %; Eosinophils # (auto) 0.17 K/uL (0-0.50); Eosinophils % (auto) 0.7 %; Hairy Cells Present; Immature Granulocytes % (auto) 0.4 %; Monocytes % (auto) 11.7 %; Neutrophils # (auto) 7.79 K/uL (1.40-6.50); Neutrophils % (auto) 32.7 %; Troponin I High Sensitivity 6.4 pg/ml (0-20)
--- NOTE | 2023-02-06 16:09 | CT Scan Report ---
CT lumbar spine wo con HISTORY: 82 years-old Male worsening LBP; h/o hardware loosening COMPARISON: 08/26/2022 TECHNIQUE: Multiple axial CT images of the lumbar spine were obtained without the use of IV contrast. A dose lowering technique was used consistent with the principals of ALARA. FINDINGS: Study is limited secondary to significant streak artifact from the extensive spinal fusion hardware. Atherosclerosis of the abdominal aorta. There is a 3.4 x 1.8 x 4.2 cm hyperdense right-sided paraspin al structure at T11-T12 which is new from prior. Similar-appearing hyperdense 3.2 cm focus is noted w ithin the central canal at the T11-T12 level. Unchanged chronic fracture lines are noted within the p osterior elements at T12. Chronic widening of the T12-L1 disc space with considerable amount of air within the disc space again noted. Chronic Schmorl's node/compression deformities in the thoracic spine are again noted. The rig ht L2 screw is again noted extending through the L1-L2 disc space terminating within the L1 vertebral body. Bilateral iliac bolts are in place. Lucency around the left interpedicular screw at L5, both i nterpedicular screws at S1, the anterior screws at L5 and S1, and both iliac bolts indicate loosening . Lumbar levoscoliosis. Healing subacute nonspecific fractures of the left 11th and 12th ribs. IMPRESSION: 1. 4.2 cm ovoid circumscribed hyperdense right paraspinal structure at T11-T12 with similar appearing 3.2 cm structure within the central canal at this interspace. There is associated severe central can al stenosis. These findings are new/progressed compared to the 08/26/2022 study and favor calcified se questered disc fragments. 2. Chronic compression deformities with extensive fusion hardware redemonstrated. 3. Evidence of hardware loosening with chronic fractures within the posterior elements at T12. 4. Unchanged appearance of the T12 deformity with progressive air in the T12-L1 disc space. 5. Healing subacute nondisplaced fractures of the left 11th and 12th ribs.. ACT 112: Negative or not required by law. The above report was generated using voice recognition software. It may contain grammatical, syntax o r spelling errors. Electronically signed by: Juma Abdalla M.D. 02/06/2023 4:06 PM
[2023-02-06] MEDS ORDERED: FUROSEMIDE 40 MG/4 ML VIAL IV ONE (16:15)
[2023-02-06 16:32] LABS: Appearance Urine Clear (Clear); Bilirubin Urine Negative (Negative); Blood Urine Negative (Negative); Color Urine Yellow; Glucose Urine UA Negative (Negative); Ketones Urine Negative (Negative); Leukocyte Esterase Urine Negative (Negative); Nitrite Urine Negative (Negative); Protein Urine Negative (Negative); Specific Gravity Urine 1.015 (1.000-1.030); Urobilinogen Urine Negative (Negative)
--- NOTE | 2023-02-06 17:00 | History & Physical Report ---
Date of Service February 06, 2023 Assessment & Plan (1) Acute exacerbation of chronic low back pain: Plan: 82yo male with extensive spinal surgeries in past with hardware - known loosening. He presents with acute on chronic back pain following a fall at home yesterday. He reports worsening pain as well as weakness, gait instability and numbness/tingling. CT findings as above with possible calcified sequestered disc fragments with associated canal stenosis. -Continue Buspirone patch - patient is currently on 10mg and is to be decreased to 5mg next week -Continue Oxycodone 5mg po QID PRN -Tylenol 1000mg po TID -Flexeril 5mg po BID -Heating pad -Morphine as needed -Continue Gabapentin -Continue Duloxetine -Ortho-Spine consultation appreciated (2) Edema: Plan: Etiology of bilateral LE edema uncertain. Patient is on Amlodipine - consider medication effects. TSH is WNL as are renal and hepatic laboratories. No protein present on UA. No clinical evidence of cellulitis. Patient weight is up appx 10# per record review (consider possible measuring error). -Check 2D echo -Check bilateral LE US -Check CT abdomen/pelvis - patient with lymphoma - possible bulky LAD? (3) Hyperlipidemia: Plan: Chronic. Stable -Continue Pravastatin 40mg po daily (4) Hypertension: Plan: Chronic. Blood pressure well controlled -Continue HCTZ -Hold Amlodipine for now F/E/N - Heplock. Electrolytes WNL. 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 Patient has had multiple back surgeries in the past with extensive hardware in place. He suffers from postlaminectomy syndrome of the thoracic/lumbosacral region and is on chronic opioid therapy. He follows with Pain management - currently on a Buspirone patch which is being weaned off. His Oxycodone was recently changed to 5mg po q 6 hours as needed. Patient has had several falls over the last month. His most recent fall was yesterday when he lost his balance and fell onto the carpeted floor in his home. He was unable to get up due to pain and limited mobility and struggled on the floor twisting and turning to get up. Since then he has had acute worsening of his lumbar back pain. The pain is worst on the left side lower lumbar region. He also reports inability to stand and difficulty ambulating due to weakness and pain. He has had numbness in the LLE in the past but now has new numbness and tingling in the RLE. He denies bowel or bladder complaints. No fever, chills. Patient additionally reports 2 days of progressive bilateral LE edema. His legs feel tight and heavy. He denies cough, SOB, orthopnea, abdominal pain or distention. Per record review - weight on 01/26/23 was 89kg, today is 93kg In the ER he is afebrile, HD stable, NAD ER Course: Tylenol 1gm IV ordered Morphine 2mg IV ordered Allergies Allergy/AdvReac Type Severity Reaction Status Date / Time simvastatin AdvReac Intermediate Rash Verified 01/26/23 13:10 Home Medications Medication Instructions Recorded Confirmed Type vit C 250 mg-vit E 90 mg-zinc 40 1 tab PO BID 10/19/18 02/06/23 History mg-copper 1 xv-bocrdg-wejryv capsule (PreserVision AREDS-2) docusate sodium 100 mg capsule 100 mg PO BID 05/16/19 02/06/23 History cholecalciferol (vitamin D3) 25 25 mcg PO DAILY 10/26/20 02/06/23 History mcg (1,000 unit) tablet naloxone 4 mg/actuation nasal spray 4 mg intranasal Q3M PRN opioid 04/15/21 02/06/23 Rx overdose #2 ea cyanocobalamin (vitamin B-12) 500 500 mcg PO DAILY 01/02/22 02/06/23 History mcg tablet pravastatin 40 mg tablet 40 mg PO HS #100 tabs 01/20/22 02/06/23 Rx hydrochlorothiazide 25 mg tablet 25 mg PO DAILY #90 tabs 03/05/22 02/06/23 Rx gabapentin 300 mg capsule 300 mg PO .COMPLEX #120 caps 08/28/22 02/06/23 Rx amlodipine 5 mg tablet 5 mg PO DAILY #90 tabs 11/10/22 02/06/23 Rx duloxetine 60 mg capsule,delayed 60 mg PO DAILY #90 caps 11/10/22 02/06/23 Rx release meloxicam 15 mg tablet 15 mg PO DAILY #90 tabs 11/10/22 02/06/23 Rx buprenorphine 5 mcg/hour weekly 1 patch transdermal .COMPLEX #4 ea 01/27/23 02/06/23 Rx transdermal patch ([place]rans) oxycodone 5 mg tablet 5 mg PO QID PRN Lumbar post 02/02/23 02/06/23 Rx laminectomy syndrome #120 tabs Past Med/Surg History Medical History B-cell lymphoproliferative disorder BPH (benign prostatic hyperplasia) Chronic back pain TO LEGS R/L ON OCC History of adenomatous polyp of colon Hyperlipidemia Hypertension Opioid dependence Osteoarthritis Postlaminectomy syndrome of lumbosacral region Postlaminectomy syndrome of thoracic region Scoliosis Tubulovillous adenoma of colon Surgical History Cancer BASAL CELL FACE BACK-REMOVAL History of arthroscopy LEFT KNEE History of colonoscopy Status post laminectomy with spinal fusion Family History Father CHF (congestive heart failure) Neuropathy Sister Breast cancer Mother Dementia Denies family history of Ovarian cancer Prostate cancer Diabetes Coronary heart disease Myocardial infarction Lung cancer Colorectal cancer Social History Smoking Status: Former smoker Tobacco Type: Cigarettes Age Started Using Tobacco: 17; Age Quit Using Tobacco: 29; packs per day: 1; Cigarettes Per Day: 1 PPD; Second Hand Exposure: No; Do You Dip or Chew Tobacco: No; Hx Alcohol Use: No Hx Substance Use: No Preferred Language: Yi Communication Ability: Effective Visual Impairment: No Limitations Hearing Ability: Normal 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 Beliefs That Will Affect Care: None marital status: Current Living Situation: Spouse Current Living Situation Comment: Lives w/ current occupational status: retired current occupation: [employer] How many Children do You have: 2 Feels Safe at Home: Yes Childhood Exposure to Second-Hand Smoke: No Diet: regular caffeine: Yes during the past year weight has: remained stable Dental Care, Regularly: Yes Physical Activity Frequency: 1-2 Times per Week Physical Activity Frequency Comment: strength training, 60 minutes Seatbelt Use: always Sunscreen Use: Yes Assistive Devices: Cane and Walker Review of Systems Review of Systems: All systems reviewed & are unremarkable except as noted in HPI & below Physical Exam Physical Exam: General: patient resting in mild discomfort, NAD, non-toxic in appearance, AA&O x 4 Skin: warm, dry, intact, no rashes or lesions. Old bruise on left flank from prior fall against the couch HEENT: NC/AT, PERRL, EOMI, anicteric sclera, conjunctiva without injection, external ear normal to inspection and nontender, nares patent, moist mucus membranes, dentition intact, no oropharyngeal lesions, neck supple, trachea midline, no LAD, no thyromegaly, no JVD Heart: +S1/S2, regular, no m/r/g Lungs: equal air entry bilaterally, no rales/rhonchi/wheezes Abd: +BS, soft, NT/ND, no masses/organomegaly/ascites Ext: warm, 2+ pulses in UE/LE bilaterally, no clubbing/cyanosis, 2+ pitting edema of bilateral LE to above knees Neuro: nonfocal, patient AA&O x 4, speech intact, no facial droop, moving all extremities on command with equal strength 5/5 RLE weakness 4/5, LLE weakness 4+/5, difficult to obtain reflexes Tenderness with palpation of lumbar spine. Muscular tension in paraspinals L > R Results & Data Results & Data Vital Signs (Past 12 Hours) Vital Signs Temp Pulse Resp BP Pulse Ox O2 Del Method 02/06/23 16:00 121 H 22 130/70 96 02/06/23 15:47 73 15 126/67 96 02/06/23 16:02 92 H 16 98 Room Air 02/06/23 15:47 82 02/06/23 14:38 37.0 C 84 18 123/78 95 Room Air Laboratory Results Laboratory Results WBC 23.87 K/ul (4.8-10.8) H 02/06/23 14:47 RBC 3.96 M/uL (4.70-6.10) L 02/06/23 14:47 Hgb 11.4 g/dl (14.0-18.0) L 02/06/23 14:47 Hct 34.9 % (42.0-52.0) L 02/06/23 14:47 MCV 88.1 fL (80.0-100.0) 02/06/23 14:47 MCH 28.8 pg (25.0-34.0) 02/06/23 14:47 MCHC 32.7 g/dL (32.0-36.0) 02/06/23 14:47 RDW Std Deviation 54.3 fL (36.4-46.3) H 02/06/23 14:47 RDW Coeff of Bhavesh 16.8 % (11.5-14.5) H 02/06/23 14:47 Plt Count 293 K/uL (130-400) 02/06/23 14:47 MPV 8.6 fL (9.4-12.4) L 02/06/23 14:47 Immature Gran % (Auto) 0.4 % 02/06/23 14:47 Neut % (Auto) 32.7 % 02/06/23 14:47 Lymph % (Auto) 54.0 % 02/06/23 14:47 [place] % (Auto) 11.7 % 02/06/23 14:47 Eos % (Auto) 0.7 % 02/06/23 14:47 Baso % (Auto) 0.5 % 02/06/23 14:47 Neut # (Auto) 7.79 K/uL (1.40-6.50) H 02/06/23 14:47 Lymph # (Auto) 12.90 K/uL (1.2-3.4) H 02/06/23 14:47 [place] # (Auto) 2.80 K/uL (0.11-0.59) H 02/06/23 14:47 Eos # (Auto) 0.17 K/uL (0-0.50) 02/06/23 14:47 Baso # (Auto) 0.11 K/uL (0-0.2) 02/06/23 14:47 Immature Gran # (Auto) 0.10 K/uL (0.01-0.20) 02/06/23 14:47 Hairy Cells Present 02/06/23 14:47 PT 11.5 Seconds (9.0-12.0) 02/06/23 14:47 INR 1.1 (0.9-1.1) 02/06/23 14:47 Sodium 135 mmol/L (136-145) L 02/06/23 14:47 Potassium 3.9 mmol/L (3.5-5.1) 02/06/23 14:47 Chloride 97 mmol/L (98-107) L 02/06/23 14:47 Carbon Dioxide 30 mmol/L (21-32) 02/06/23 14:47 Anion Gap 8 (3-11) 02/06/23 14:47 BUN 29 mg/dl (6-23) H 02/06/23 14:47 Creatinine 1.16 mg/dl (0.6-1.4) 02/06/23 14:47 Est Cr Clr Drug Dosing 55.3 ml/min 02/06/23 14:47 Est GFR ( Amer) 67.1 ml/min 02/06/23 14:47 Est GFR (Non-Af Amer) 57.9 ml/min 02/06/23 14:47 BUN/Creatinine Ratio 25.0 (10-20) H 02/06/23 14:47 Glucose 141 mg/dl (70-99(Fasting)) H 02/06/23 14:47 Calcium 9.8 mg/dl (8.6-10.3) 02/06/23 14:47 Magnesium 1.9 mg/dl (1.7-2.4) 02/06/23 14:47 Total Bilirubin 0.4 mg/dl (0.2-1.0) 02/06/23 14:47 AST 19 U/L (13-39) 02/06/23 14:47 ALT 11 U/L (7-52) 02/06/23 14:47 Alkaline Phosphatase 94 U/L (34-104) 02/06/23 14:47 Troponin I High Sens 6.4 pg/ml (0-20) 02/06/23 14:47 B-Natriuretic Peptide 49 pg/ml (0-100) 02/06/23 14:47 Total Protein 7.6 gm/dl (6.0-8.3) 02/06/23 14:47 Albumin 4.3 gm/dl (3.4-5.0) 02/06/23 14:47 Globulin 3.3 gm/dl (2.5-4.0) 02/06/23 14:47 Albumin/Globulin Ratio 1.3 (0.9-2) 02/06/23 14:47 TSH 3.438 uIu/ml (0.300-4.500) 02/06/23 14:47 Urine Color Yellow 02/06/23 15:55 Urine Appearance Clear (Clear) 02/06/23 15:55 Urine pH 6.0 (4.5-7.5) 02/06/23 15:55 Ur Specific [place] 1.015 (1.000-1.030) 02/06/23 15:55 Urine Protein Negative (Negative) 02/06/23 15:55 Urine Glucose (UA) Negative (Negative) 02/06/23 15:55 Urine Ketones Negative (Negative) 02/06/23 15:55 Urine Blood Negative (Negative) 02/06/23 15:55 Urine Nitrite Negative (Negative) 02/06/23 15:55 Urine Bilirubin Negative (Negative) 02/06/23 15:55 Urine Urobilinogen Negative (Negative) 02/06/23 15:55 Ur Leukocyte Esterase Negative (Negative) 02/06/23 15:55 SARS-CoV-2, RNA, NAAT NEGATIVE (NEGATIVE) 02/06/23 15:52 Impressions Chest X-Ray 02/06/23 15:10 XR chest 1V portable HISTORY: 82 years-old Male weakness acute weakness COMPARISON: 12/16/2021 TECHNIQUE: AP view of the chest FINDINGS: Cardiac silhouette is enlarged. Chronic right hemidiaphragmatic elevation. Hiatal hernia. No pneumothorax, pleural effusion, airspace consolidation or overt pulmonary edema. Unchanged chronic interstitial coarsening. Degenerative changes of the shoulders and spine. Extensive spinal fusion hardware. IMPRESSION: 1. Cardiomegaly without acute process. 2. Mild bibasilar atelectasis. 3. Hiatal hernia. ACT 112: Negative or not required by law. The above report was generated using voice recognition software. It may contain grammatical, syntax or spelling errors. Electronically signed by: Juma Abdalla M.D. 02/06/2023 3:[address] 02/06/23 15:10 CT lumbar spine wo con HISTORY: 82 years-old Male worsening LBP; h/o hardware loosening COMPARISON: 08/26/2022 TECHNIQUE: Multiple axial CT images of the lumbar spine were obtained without the use of IV contrast. A dose lowering technique was used consistent with the principals of ALARA. FINDINGS: Study is limited secondary to significant streak artifact from the extensive spinal fusion hardware. Atherosclerosis of the abdominal aorta. There is a 3.4 x 1.8 x 4.2 cm hyperdense right-sided paraspinal structure at T11-T12 which is new from prior. Similar-appearing hyperdense 3.2 cm focus is noted within the central canal at the T11-T12 level. Unchanged chronic fracture lines are noted within the posterior elements at T12. Chronic widening of the T12-L1 disc space with considerable amount of air within the disc space again noted. Chronic Schmorl's node/compression deformities in the thoracic spine are again noted. The right L2 screw is again noted extending through the L1-L2 disc space terminating within the L1 vertebral body. Bilateral iliac bolts are in place. Lucency around the left interpedicular screw at L5, both interpedicular screws at S1, the anterior screws at L5 and S1, and both iliac bolts indicate loosening. Lumbar levoscoliosis. Healing subacute nonspecific fractures of the left 11th and 12th ribs. IMPRESSION: 1. 4.2 cm ovoid circumscribed hyperdense right paraspinal structure at T11-T12 with similar appearing 3.2 cm structure within the central canal at this interspace. There is associated severe central canal stenosis. These findings are new/progressed compared to the 08/26/2022 study and favor calcified sequestered disc fragments. 2. Chronic compression deformities with extensive fusion hardware redemonstrated. 3. Evidence of hardware loosening with chronic fractures within the posterior elements at T12. 4. Unchanged appearance of the T12 deformity with progressive air in the T12-L1 disc space. 5. Healing subacute nondisplaced fractures of the left 11th and 12th ribs.. ACT 112: Negative or not required by law. The above report was generated using voice recognition software. It may contain grammatical, syntax or spelling errors. Electronically signed by: Juma Abdalla M.D. 02/06/2023 4:06 PM Code Status & VTE Plan VTE Prophylaxis Plan VTE Prophylaxis will be ordered: Yes PG Care Time/CCT Total # of Minutes Spent Total Time Spent with Patient: Total time spent is greater than 50% in coordination of care (as documented) at patient's floor/unit and/or counseling patient: Coding Level of Care Code 91215 INT INP/OBS CARE MIN Diagnoses Acute exacerbation of chronic low back pain M54.50; G89.29 Edema R60.9 Hyperlipidemia E78.5 Hypertension I10
[2023-02-06] MEDS ORDERED: ACETAMINOPHEN 1,000 MG/100 ML VIAL IV STA (17:40)
[2023-02-06] MEDS ORDERED: MoRPHine SULFATE 2 MG/ML CARP IV STA (17:40)
[2023-02-06] MEDS ORDERED: BUPRENORPHINE 5 MCG/HR TDSY TD SCH (19:18)
[2023-02-06] MEDS ORDERED: ONDANSETRON INJ 2 MG/ML 2 ML VIAL IV PRN (19:18)
[2023-02-06] MEDS ORDERED: MoRPHine SULFATE 2 MG/ML CARP IV PRN (19:18)
[2023-02-06] MEDS ORDERED: OPTIRAY 320 100ml IV ONE (20:50)
[2023-02-06] MEDS: DOCUSATE SODIUM 100 MG CAP PO SCH (20:58)
[2023-02-06] MEDS: CYCLOBENZAPRINE HCL 5 MG TAB PO SCH (20:58)
[2023-02-06] MEDS: PRAVASTATIN SOD 40 MG TAB PO SCH (20:58)
[2023-02-06] MEDS: ACETAMINOPHEN 500 MG TAB PO SCH (20:58)
[2023-02-06] MEDS: GABAPENTIN 300 MG CAP PO SCH (20:59)
[2023-02-06] MEDS: ENOXAPARIN INJ 40 MG/0.4 ML SYR SQ SCH (20:59)
--- NOTE | 2023-02-06 21:42 | CT Scan Report ---
Exam(s): CT ABDOMEN + PELVIS With Contrast IV Amt: 93 OPTIRAY 320 EXAM: CT Abdomen and Pelvis With Intravenous Contrast CLINICAL HISTORY: Reason for exam: bilateral LE edema, h/o cancer. TECHNIQUE: Axial computed tomography images of the abdomen and pelvis with intravenous contrast. CTDI is 24.65 mGy and DLP is 1222.14 mGy-cm. Automated exposure control was utilized for the study. A dose lowering technique was utilized adhering to the principles of ALARA. CONTRAST: Patient received 93 OPTIRAY 320 of IV contrast COMPARISON: 08/26/2022 FINDINGS: Lung bases: Unremarkable. No mass. No consolidation. Mediastinum: Moderate size esophageal hiatal hernia. ABDOMEN: Liver: Unremarkable. No mass. Gallbladder and bile ducts: Distended gallbladder. No calcified stones. No ductal dilation. Pancreas: Unremarkable. No mass. No ductal dilation. Spleen: Unremarkable. No splenomegaly. Adrenals: Unremarkable. No mass. Kidneys and ureters: Unremarkable. No solid mass. No hydronephrosis. Stomach and bowel: Unremarkable. No obstruction. No mucosal thickening. PELVIS: Appendix: No findings to suggest acute appendicitis. Bladder: Urinary bladder is mildly distended. Reproductive: Unremarkable as visualized. ABDOMEN and PELVIS: Intraperitoneal space: Unremarkable. No free air. No significant fluid collection. Bones/joints: L3, L2, and T12 vertebral body compression fractures. Stable postoperative changes extending from the sacrum to the lower thoracic spine which are incompletely evaluated on this exam. No acute osseous pathology. No dislocation. Soft tissues: Unremarkable. Vasculature: Unremarkable. No abdominal aortic aneurysm. Lymph nodes: Unremarkable. No enlarged lymph nodes. IMPRESSION: 1. CT of the abdomen pelvis negative for acute intra-abdominal pathology 2. Stable postoperative changes described above Electronically signed by: Ambrosio Hua MD 02/06/23 21:41 PM
--- NOTE | 2023-02-06 22:08 | Ultrasound Report ---
ULTRASOUND BILATERAL LOWER EXTREMITY VENOUS CLINICAL HISTORY: Lower extremity edema. COMPARISON STUDY: No priors. TECHNIQUE: Real-time, grayscale, and color Doppler sonography of the deep veins of the right and left lower extremity was performed from the inguinal crease to the calf. Compression and augmentation wer e utilized. FINDINGS: There is no sonographic evidence of deep venous thrombosis identified in the right or left lower extremity. The common femoral, superficial femoral, and popliteal veins are patent and normally compressible bilaterally. The greater saphenous vein and the profunda femoris vein at the junction w ith the common femoral vein are clear in both legs. The visualized calf veins are patent bilaterally. IMPRESSION: There is no sonographic evidence of deep venous thrombosis identified in the right or lef t lower extremity. ACT 112: Negative or not required by law. Electronically signed by: Gavin Allan M.D. 02/06/2023 10:06 PM
[2023-02-07] MEDS: CHECK BUPRENORPHINE PATCH SCH ×3 (00:35→16:20)
[2023-02-07 06:31] LABS: Hematocrit (blood only) 32.3 % (42.0-52.0); Hemoglobin 10.7 g/dl (14.0-18.0); Mean Corpuscular Hemoglobin 28.8 pg (25.0-34.0); Mean Corpuscular Hgb Conc 33.1 g/dL (32.0-36.0); Mean Corpuscular Volume 87.1 fL (80.0-100.0); Mean Platelet Volume 8.3 fL (9.4-12.4); Platelet Count 246 K/uL (130-400); RDW Coefficient of Variation 16.5 % (11.5-14.5); RDW Standard Deviation 53.2 fL (36.4-46.3); Red Blood Count 3.71 M/uL (4.70-6.10); White Blood Count 18.55 K/ul (4.8-10.8)
[2023-02-07 06:52] LABS: BUN Creatinine Ratio 24.8 (10-20); Calcium 9.6 mg/dl (8.6-10.3); Creatinine Clr Calc Pharmacy 61.1 ml/min; Est GFR (African American) 75.7 ml/min; Est GFR (Non-African American) 65.3 ml/min; Potassium 3.5 mmol/L (3.5-5.1)
[2023-02-07] MEDS ORDERED: hydroCHLOROthiazide 25 MG TAB PO SCH (09:00)
[2023-02-07] MEDS: oxyCODONE HCL IR 5 MG TAB (IMMEDIATE RELEASE) PO PRN ×2 (09:30→09:35)
[2023-02-07] MEDS: GABAPENTIN 300 MG CAP PO SCH ×3 (09:31→20:15)
[2023-02-07] MEDS: CYCLOBENZAPRINE HCL 5 MG TAB PO SCH (09:31)
[2023-02-07] MEDS: DULoxetine HCL 60 MG CAP PO SCH (09:32)
[2023-02-07] MEDS: ACETAMINOPHEN 500 MG TAB PO SCH ×3 (09:32→20:15)
[2023-02-07] MEDS: DOCUSATE SODIUM 100 MG CAP PO SCH ×2 (09:32→20:15)
[2023-02-07] MEDS: MELOXICAM 7.5 MG TAB PO SCH (09:33)
--- NOTE | 2023-02-07 10:34 | Hospitalist Progress Note ---
Date of Service February 07, 2023 Assessment & Plan (1) Acute exacerbation of chronic low back pain: Plan: 82yo male with extensive spinal surgeries in past with hardware - known loosening. He presents with acute on chronic back pain following a fall at home. He reports worsening pain as well as weakness, gait instability and numbness/tingling. CT findings with possible calcified sequestered disc fragments with associated severe spinal canal stenosis. Loosening of hardware was previously noted -Continue Buspirone patch - patient is currently on 10mg and is to be decreased to 5mg next week -Continue Oxycodone 5mg po QID PRN -Tylenol 1000mg po TID Adjusted parenteral pain medications concern with buprenorphine may have some resistance to parenteral opiates -Heating pad -Morphine as needed -Continue Gabapentin -Continue Duloxetine -Ortho-Spine consultation Dr Antony for local opinion patient gets most of his spine surgery done in the [place] area (2) Edema: Plan: Etiology of bilateral LE edema uncertain. Patient is on Amlodipine - consider medication effects. TSH is WNL as are renal and hepatic laboratories. No protein present on UA. No clinical evidence of cellulitis. Patient weight is up appx 10# per record review (consider possible measuring error). Lower extremity Dopplers are negative -Check CT abdomen/pelvis - negative for intra abdominal pathology Despite edema low blood pressure necessitated a bolus of fluid (3) Hypertension: Plan: Chronic. Blood pressure now low patient is a poor p.o. intake will give fluid bolus and hold antihypertensive medications of amlodipine and hydrochlorothiazide (4) Hyperlipidemia: Plan: Chronic. Stable -Continue Pravastatin 40mg po daily Plan Given his failed back syndrome local orthopedic opinion is only to determine if we should reengage for possible surgical intervention versus conservative management however the patient has been enrolled in pain management without significant prevent Ppx - Lovenox 40mg daily Code - DNR/DNI per discussion with patient Admission and Anticipated Discharge Date Admission Date: February 06, 2023 Subjective Patient is in significant discomfort cannot sit up in bed even to eat in the past was evaluated here by Dr. Antony and felt to be nonsurgical candidate maren lopez getting his back surgical evaluations in [place] but with known hardware loosening and disruption for the last few months has not had improvement with pain management as an outpatient. Physical Exam Physical Exam: Patient has no hyperreflexia to the lower extremities has gross tactile sensation his patellar reflexes are absent even with distraction Cardiopulmonary exam is stable Results & Data Results & Data Vital Signs (Past 12 Hours) Vital Signs Temp Pulse Resp BP Pulse Ox O2 Del Method 02/07/23 07:59 98.2 F 90 16 118/60 94 Room Air Laboratory Results Reviewed CBC reviewed chemistry PG Care Time/CCT Total # of Minutes Spent Total Time Spent with Patient: Total time spent is greater than 50% in coordination of care (as documented) at patient's floor/unit and/or counseling patient: Coding Level of Care Code 60286 SUB INP/OBS CARE 3/50MIN Diagnoses Acute exacerbation of chronic low back pain M54.50; G89.29 Edema R60.9 Hypertension I10 Hyperlipidemia E78.5
[2023-02-07] MEDS ORDERED: DEXAMETHASONE SOD INJ 4 MG/ML VIAL IV STA (16:36)
[2023-02-07] MEDS ORDERED: SODIUM CHLORIDE 0.9% 1000ML 500 ML IV ONE (16:36)
[2023-02-07] MEDS ORDERED: HYDROmorphone INJ 0.5 MG/0.5 ML SYR IV PRN (16:41)
[2023-02-07] MEDS ORDERED: HYDROmorphone INJ 1 MG/ML SYRINGE IV PRN (16:41)
[2023-02-07] MEDS ORDERED: SODIUM CHLORIDE 0.9% 1000ML 1,000 ML IV SCH (16:45)
[2023-02-07] MEDS ORDERED: dexAMETHasone 4 MG in SYRINGE 0 ML IV SCH (17:00)
--- NOTE | 2023-02-07 17:05 | Electrocardiogram Report ---
Test Reason : Blood Pressure : / mmHG Vent. Rate : 077 BPM Atrial Rate : 077 BPM P-R Int : 266 ms QRS Dur : 126 ms QT Int : 396 ms P-R-T Axes : 051 -41 025 degrees QTc Int : 448 ms Sinus rhythm with 1st degree A-V block Left axis deviation Right bundle branch block Inferior infarct , age undetermined Abnormal ECG When compared with ECG of 01-JAN-2023 12:07, No significant change Confirmed by Alexandru Quick ([id number]) on 02/07/2023 5:04:55 PM Referred By: John Casarez Confirmed By:Alexandru Quick
--- NOTE | 2023-02-07 17:43 | XCELERA ---
[id number] \\[id number]
[2023-02-07] MEDS: ENOXAPARIN INJ 40 MG/0.4 ML SYR SQ SCH (20:14)
[2023-02-07] MEDS: PRAVASTATIN SOD 40 MG TAB PO SCH (20:15)
[2023-02-08] MEDS: CHECK BUPRENORPHINE PATCH SCH ×4 (08:10→23:24)
[2023-02-08] MEDS: DULoxetine HCL 60 MG CAP PO SCH (08:11)
[2023-02-08] MEDS: ACETAMINOPHEN 500 MG TAB PO SCH ×3 (08:12→21:49)
[2023-02-08] MEDS: GABAPENTIN 300 MG CAP PO SCH ×3 (08:13→21:47)
[2023-02-08] MEDS: MELOXICAM 7.5 MG TAB PO SCH (08:13)
[2023-02-08] MEDS: DOCUSATE SODIUM 100 MG CAP PO SCH ×2 (08:14→21:45)
--- NOTE | 2023-02-08 10:17 | Orthopedic Consultation ---
Date of Consultation February 08, 2023 Assessment & Plan (1) Acute exacerbation of chronic low back pain: Recent CAT scan lumbar spine demonstrates marked erosion and vacuum phenomenon at the inferior endplate of T12. I strongly suspect that any motion such as sitting up or standing he has significant collapse across this region obviously contributing to his back pain and possibly his neurologic deficit. I discussed with the patient these findings and my concern that he would require further surgery possibly by way of an anterior approach and spinal reconstruction. This is beyond the capacity of our institution. I recommendation that he return to [facility] for their input. He understands agrees. History of Present Illness Reason for Consultation: Back pain Attending Physician: Jonathon Tim MD History of Present Illness This is an 82-year-old male with a med in the past that presents with worsening back pain and new onset of weakness in the left lower extremity. He is comfortable lying lying supine. If he tries to sit up he has significant discomfort. He does have a history of undergoing his most recent back surgery by Dr. George at [facility]. He has not been back to see him for several months. He denies any right lower extremity pain or weakness. Allergies Allergy/AdvReac Type Severity Reaction Status Date / Time simvastatin AdvReac Intermediate Rash Verified 01/26/23 13:10 Home Medications Medication Instructions Recorded Confirmed Type vit C 250 mg-vit E 90 mg-zinc 40 1 tab PO BID 10/19/18 02/06/23 History mg-copper 1 [id number] capsule (PreserVision AREDS-2) docusate sodium 100 mg capsule 100 mg PO BID 05/16/19 02/06/23 History cholecalciferol (vitamin D3) 25 25 mcg PO DAILY 10/26/20 02/06/23 History mcg (1,000 unit) tablet naloxone 4 mg/actuation nasal spray 4 mg intranasal Q3M PRN opioid 04/15/21 02/06/23 Rx overdose #2 ea cyanocobalamin (vitamin B-12) 500 500 mcg PO DAILY 01/02/22 02/06/23 History mcg tablet pravastatin 40 mg tablet 40 mg PO HS #100 tabs 01/20/22 02/06/23 Rx hydrochlorothiazide 25 mg tablet 25 mg PO DAILY #90 tabs 03/05/22 02/06/23 Rx gabapentin 300 mg capsule 300 mg PO .COMPLEX #120 caps 08/28/22 02/06/23 Rx amlodipine 5 mg tablet 5 mg PO DAILY #90 tabs 11/10/22 02/06/23 Rx duloxetine 60 mg capsule,delayed 60 mg PO DAILY #90 caps 11/10/22 02/06/23 Rx release meloxicam 15 mg tablet 15 mg PO DAILY #90 tabs 11/10/22 02/06/23 Rx buprenorphine 5 mcg/hour weekly 1 patch transdermal .COMPLEX #4 ea 01/27/23 02/06/23 Rx transdermal patch (Butrans) oxycodone 5 mg tablet 5 mg PO QID PRN Lumbar post 02/02/23 02/06/23 Rx laminectomy syndrome #120 tabs Patient History Medical History B-cell lymphoproliferative disorder BPH (benign prostatic hyperplasia) Chronic back pain TO LEGS R/L ON OCC History of adenomatous polyp of colon Hyperlipidemia Hypertension Opioid dependence Osteoarthritis Postlaminectomy syndrome of lumbosacral region Postlaminectomy syndrome of thoracic region Scoliosis Tubulovillous adenoma of colon Surgical History Cancer BASAL CELL FACE BACK-REMOVAL History of arthroscopy LEFT KNEE History of colonoscopy Status post laminectomy with spinal fusion Family History Father CHF (congestive heart failure) Neuropathy Sister Breast cancer Mother Dementia Denies family history of Ovarian cancer Prostate cancer Diabetes Coronary heart disease Myocardial infarction Lung cancer Colorectal cancer Social History Smoking Status: Never smoker Tobacco Type: Cigarettes Age Started Using Tobacco: 17; Age Quit Using Tobacco: 29; packs per day: 1; Cigarettes Per Day: 1 PPD; Second Hand Exposure: No; Do You Dip or Chew Tobacco: No; Hx Alcohol Use: No Hx Substance Use: No Preferred Language: Comoran Communication Ability: Effective Visual Impairment: No Limitations Hearing Ability: Normal Bread Wrapper Required: No Beliefs That Will Affect Care: None marital status: Current Living Situation: Spouse Current Living Situation Comment: home with current occupational status: retired current occupation: [employer] How many Children do You have: 2 Other Information That Helps Us Care for You: No Feels Safe at Home: Yes Safety Concerns: Feels Safe At This Time Childhood Exposure to Second-Hand Smoke: No Diet: regular caffeine: Yes during the past year weight has: remained stable Dental Care, Regularly: Yes Physical Activity Frequency: 1-2 Times per Week Physical Activity Frequency Comment: strength training, 60 minutes Seatbelt Use: always Sunscreen Use: Yes Assistive Devices: Walker Physical Exam Physical Exam: On exam he is alert and oriented. He is cooperative exam. He has reasonable plantarflexion dorsiflexion quadriceps on the right. Left knee has marked foot drop quadriceps are intact. Sensory appears to be symmetric and intact. Results & Data Vital Signs (Past 12 Hours) Vital Signs Temp Pulse Resp BP Pulse Ox O2 Del Method 02/08/23 07:03 36.6 C 86 20 120/63 95 Room Air
[2023-02-08] MEDS ORDERED: SENNA 8.6 MG TAB PO ONE (16:50)
--- NOTE | 2023-02-08 16:54 | Hospitalist Progress Note ---
Date of Service February 08, 2023 Assessment & Plan (1) Acute exacerbation of chronic low back pain: Plan: 82yo male with extensive spinal surgeries in past with hardware - known loosening. He presents with acute on chronic back pain following a fall at home. He reports worsening pain as well as weakness, gait instability and numbness/tingling. CT findings with possible calcified sequestered disc fragments with associated severe spinal canal stenosis. Loosening of hardware was previously noted. Patient's previous spine surgeons Dr. George [facility] -Continue Buspirone patch - patient is currently on 10mg and is to be decreased to 5mg next week -Continue Oxycodone 5mg po QID PRN patient has as needed hydromorphone also IV -Tylenol 1000mg po TID Adjusted parenteral pain medications concern with buprenorphine may have some resistance to parenteral opiates -Heating pad -Morphine as needed -Continue Gabapentin -Continue Duloxetine -Ortho-Spine consultation Dr Antony feels patient surgical need with exceeds her capacity for [place] (2) Edema: Plan: Etiology of bilateral LE edema uncertain. Patient is on Amlodipine - consider medication effects. TSH is WNL as are renal and hepatic laboratories. No protein present on UA. No clinical evidence of cellulitis. Patient weight is up appx 10# per record review (consider possible measuring error). Lower extremity Dopplers are negative -Check CT abdomen/pelvis - negative for intra abdominal pathology Despite edema low blood pressure necessitated a bolus of fluid, edema still persist but not worsened on 02/08/2023 (3) Hypertension: Plan: Chronic. Blood pressure is now stable after fluid bolus and holding amlodipine and hydrochlorothiazide (4) Hyperlipidemia: Plan: Chronic. Stable -Continue Pravastatin 40mg po daily Plan Given his failed back syndrome patient now request to speak to pain management for consideration of adjunctive pain control. Lovenox for DVT prevention Code - DNR/DNI per discussion with patient Admission and Anticipated Discharge Date Admission Date: February 07, 2023 Subjective Patient is in significant discomfort there is a some left lower extremity weakness was evaluated here by Dr. Antony and felt that he likely has an unstable spinal hardware and should be considered for a significant leg complex procedure, 1 which we cannot perform here, and be referred back to Dr. George for surgical evaluation in [facility] Patient self is not fan of this plan and is now stopping his initial refusal of consideration of evaluation for pain pump. We will have pain management consultation on Thursday 02/08 Physical Exam Physical Exam: Patient has no hyperreflexia to the lower extremities has gross tactile sensation his patellar reflexes are absent even with distraction Does have some objective decree strength to his left lower extremity Cardiopulmonary exam is stable Results & Data Results & Data Vital Signs (Past 12 Hours) Vital Signs Temp Pulse Resp BP Pulse Ox O2 Del Method 02/08/23 14:48 97.5 F L 86 17 112/57 L 93 Room Air 02/08/23 07:03 97.9 F 86 20 120/63 95 Room Air Laboratory Results Personally spoke to Dr. Antony reviewed patient's films PG Care Time/CCT Total # of Minutes Spent Total Time Spent with Patient: Total time spent is greater than 50% in coordination of care (as documented) at patient's floor/unit and/or counseling patient: Coding Level of Care Code 22033 SUB INP/OBS CARE 2/35MIN Diagnoses Acute exacerbation of chronic low back pain M54.50; G89.29 Edema R60.9 Hypertension I10 Hyperlipidemia E78.5
[2023-02-08] MEDS: ENOXAPARIN INJ 40 MG/0.4 ML SYR SQ SCH (21:46)
[2023-02-08] MEDS: PRAVASTATIN SOD 40 MG TAB PO SCH (21:49)
[2023-02-09] MEDS: CHECK BUPRENORPHINE PATCH SCH ×2 (08:33→15:16)
[2023-02-09] MEDS: GABAPENTIN 300 MG CAP PO SCH ×3 (08:34→21:19)
[2023-02-09] MEDS: DULoxetine HCL 60 MG CAP PO SCH (08:34)
[2023-02-09] MEDS: ACETAMINOPHEN 500 MG TAB PO SCH ×3 (08:34→21:18)
[2023-02-09] MEDS: DOCUSATE SODIUM 100 MG CAP PO SCH ×2 (08:34→21:18)
[2023-02-09] MEDS: MELOXICAM 7.5 MG TAB PO SCH (08:35)
[2023-02-09] MEDS: SENNA 8.6 MG TAB PO SCH ×2 (08:35→08:37)
[2023-02-09] MEDS: oxyCODONE HCL IR 5 MG TAB (IMMEDIATE RELEASE) PO PRN ×2 (13:23→21:19)
--- NOTE | 2023-02-09 15:59 | Hospitalist Progress Note ---
Date of Service February 09, 2023 Assessment & Plan (1) Acute exacerbation of chronic low back pain: Plan: 82yo male with extensive spinal surgeries in past with hardware - known loosening. He presents with acute on chronic back pain following a fall at home. He reports worsening pain as well as weakness, gait instability and numbness/tingling. Patient pain prevents him from sitting up or ambulating in any manner at this time CT findings with possible calcified sequestered disc fragments with associated severe spinal canal stenosis. Loosening of hardware was previously noted. Patient's previous spine surgeons Dr. George [facility] -Continue tapering of his buprenorphine patch -Continue Oxycodone increased dose to 10 mg mg po QID PRN patient has as needed hydromorphone also IV -Tylenol 1000mg po TID on Cymbalta for adjunctive pain control Adjusted parenteral pain medications concern with buprenorphine may have some resistance to parenteral opiates -Heating pad -hydromorphone for acute pain control -Continue Gabapentin -Continue Duloxetine -Ortho-Spine consultation Dr Antony feels patient surgical need with exceeds her capacity for [facility], Initial discussion with pain management also feels this patient may not be amenable to any inpatient intervention and should reconsider surgical correction (2) Edema: Plan: Etiology of bilateral LE edema uncertain. Patient is on Amlodipine - consider medication effects. TSH is WNL as are renal and hepatic laboratories. No protein present on UA. No clinical evidence of cellulitis. Patient weight is up appx 10# per record review (consider possible measuring error). Lower extremity Doppler are negative -Check CT abdomen/pelvis - negative for intra abdominal pathology Lower extremity edema did not respond to diuretic therapy or elevation, diuretic therapy led to hypotension requiring fluid bolus (3) Hypertension: Plan: Chronic. Blood pressure is now stable after fluid bolus and holding amlodipine and hydrochlorothiazide (4) Hyperlipidemia: Plan: Chronic. Stable -Continue Pravastatin 40mg po daily Plan Given his failed back syndrome patient now request to speak to pain management for consideration of adjunctive pain control. Lovenox for DVT prevention Code - DNR/DNI per discussion with patient Admission and Anticipated Discharge Date Admission Date: February 07, 2023 Subjective Patient is in significant discomfort there is a some left lower extremity weakness was evaluated here by Dr. Antony and felt that he likely has an unstable spinal hardware and should be considered for a significant leg complex procedure, 1 which we cannot perform here, and be referred back to Dr. George for surgical evaluation in [facility] Patient self is not fan of this plan and is now stopping his initial refusal of consideration of evaluation by pain management. Physical Exam Physical Exam: Patient has no hyperreflexia to the lower extremities has gross tactile sensation his patellar reflexes are absent even with distraction Does have some objective decree strength to his left lower extremity Cardiopulmonary exam is stable Results & Data Results & Data Vital Signs (Past 12 Hours) Vital Signs Temp Pulse Resp BP Pulse Ox O2 Del Method 02/09/23 14:36 97.3 F L 77 14 122/68 93 Room Air 02/09/23 07:08 97.5 F L 73 16 151/74 H 97 Room Air PG Care Time/CCT Total # of Minutes Spent Total Time Spent with Patient: Total time spent is greater than 50% in coordination of care (as documented) at patient's floor/unit and/or counseling patient: Coding Level of Care Code 45079 SUB INP/OBS CARE 2/35MIN Diagnoses Acute exacerbation of chronic low back pain M54.50; G89.29 Edema R60.9 Hypertension I10 Hyperlipidemia E78.5
[2023-02-09] MEDS ORDERED: BUPRENORPHINE 5 MCG/HR TDSY TD SCH (16:00)
[2023-02-09] MEDS: ENOXAPARIN INJ 40 MG/0.4 ML SYR SQ SCH (21:17)
[2023-02-09] MEDS: PRAVASTATIN SOD 40 MG TAB PO SCH (21:18)
[2023-02-10] MEDS: CHECK BUPRENORPHINE PATCH SCH ×4 (00:01→23:47)
[2023-02-10] MEDS: oxyCODONE HCL IR 5 MG TAB (IMMEDIATE RELEASE) PO PRN ×3 (07:40→22:46)
[2023-02-10] MEDS: ACETAMINOPHEN 500 MG TAB PO SCH ×3 (08:25→20:34)
[2023-02-10] MEDS: GABAPENTIN 300 MG CAP PO SCH ×3 (08:26→20:34)
[2023-02-10] MEDS: DOCUSATE SODIUM 100 MG CAP PO SCH ×2 (08:26→20:34)
[2023-02-10] MEDS: SENNA 8.6 MG TAB PO SCH (08:27)
[2023-02-10] MEDS: DULoxetine HCL 60 MG CAP PO SCH (08:27)
[2023-02-10] MEDS: MELOXICAM 7.5 MG TAB PO SCH (08:28)
--- NOTE | 2023-02-10 08:49 | Pain Management Consultation ---
Date of Consultation February 10, 2023 Assessment & Plan (1) Chronic back pain: (2) Degenerative disc disease: (3) Spinal stenosis: (4) Hardware failure: (5) Postlaminectomy syndrome of lumbosacral region: (6) Opioid dependence: (7) Intractable back pain: Plan 1. Discussed the option of surgical procedure for pain pump placement may be somewhat complicated due to his lengthy spine surgery history and potential presence of scar tissue. With there being hardware issues and potential instability, patient was educated that even with placement of a pain pump, this may not control pain to the extent the patient would desire. He understands that this is also a surgical procedure, which also carries multiple risks, as with any surgery. * If the patient was to have adequate pain control with placement of a pump, it may mask symptoms to the point that he cannot tell that there is further ongoing neurological/functional deterioration and deficits, which could end up being permanent. * Patient would have to agree to proceeding with the procedure knowing that potentially having pain control via a pump, without first probably stabilizing the spine, could lead to a condition of paralysis. 2. With the patient currently being unable to even sit up or stand with therapy due to severe pain, it is ultimately recommended by Dr. Abbott that the patient further consider being transported to [place] to be evaluated by Dr. George, who he has not seen since his initial postop visit in 2019. Stabilizing the spinal hardware is felt to be of greatest importance at this time. 3. The option for pain pump placement will be further discussed with the pain management clinic physicians. However, any further discussion process or procedure pertaining to a pain pump would need to be carried out as an outpatient, planned, and scheduled appropriately. Thank you for this consultation. Pain management service will sign off at this time. Please have patient follow-up in the pain clinic office. History of Present Illness Reason for Consultation: chronic pain; failed back syndrome Attending Physician: Jonathon Tim MD History of Present Illness Patient is an 82-year-old male well-known to the pain management clinic who presented to the [facility] ER on 02/06/2023 due to concern for worsening weakness and leg swelling. The patient had noticed some leg and foot swelling just over the period of 3 to 4 days prior to coming in. The patient also had increasing fatigue, as well as low and upper back pain ongoing since he had spinal surgery procedures completed back in [address] George. Since then, the patient has been noted to have hardware loosening. He has been deemed to be not a surgical candidate by Dr. George and previously by Dr. Antony, but most recently, Dr. Antony has said that the patient requires a complex surgery that needs to be performed at a higher level of care facility. The patient has had several falls over the last 5-6 weeks, with the most recent one being about 1 week ago. He says it was a very slow fall and that "I did not h urt myself". Patient did have difficulty getting up off the commode the morning of his arrival to the ER, and he was unable to get up secondary to some associated generalized weakness. Patient did not complain of any chest pain or shortness of breath. Patient is known to the pain service with history of intractable low back pain secondary to lumbar postlaminectomy syndrome and chronic opioid dependency. There was previous extensive discussion about alternative treatment options approximately 2 years ago. His pain was recently worsening and he was found to have hardware loosening and left L5 pedicle screw fracture. He has been evaluated by an orthopedic surgeon in [place]-Dr. George, who recommended against surgical procedure due to risk, and was also evaluated locally by Dr. Antony, who also deferred surgical intervention due to risk. Patient's history of pain complaints are most recently 100% axial in the left greater than right lumbosacral region, but does occasionally experience pain in the left greater than right lower extremity posterior thigh region stopping at knee. Patient is saying that his pain is currently consistent with this pattern and that he has no significantly new symptoms or location of pain since he was last seen in the office. Patient was initiated on Butrans patch titrated to 15 mcg dose in December. He continued to report no noticeable improvement in pain control with the Butrans patch. He denies bowel or bladder incontinence and saddle anesthesia. He reports his pain is usually at its best with sitting activities, but he has been unable to sit up or walk due to pain most recently. He previously reported that the oxycodone IR 5 mg provides him pain relief for 3-4 hours. He has been receiving stepdown doses of the Butrans patch since being admitted. There have been no complications with this process thus far. Patient states he was unsure of what was going on, but he does understand that at his last office visit he was instructed to step down from 15mcg to 10 mcg x 1 week, then 5 mcg x 2 weeks. Currently, the patient does not want to entertain further inquiry into the recommended more complex spine surgery, as it is a lengthy and complicated procedure, and poses risks due to his age and medical comorbidities. Patient states that he knows he will be on narcotics for the remainder of his life and he wants to further discuss the option of a pain pump. Case discussed with Dr. Abbott. Allergies Allergy/AdvReac Type Severity Reaction Status Date / Time simvastatin AdvReac Intermediate Rash Verified 01/26/23 13:10 Home Medications Medication Instructions Recorded Confirmed Type vit C 250 mg-vit E 90 mg-zinc 40 1 tab PO BID 10/19/18 02/06/23 History mg-copper 1 [id number] capsule (PreserVision AREDS-2) docusate sodium 100 mg capsule 100 mg PO BID 05/16/19 02/06/23 History cholecalciferol (vitamin D3) 25 25 mcg PO DAILY 10/26/20 02/06/23 History mcg (1,000 unit) tablet naloxone 4 mg/actuation nasal spray 4 mg intranasal Q3M PRN opioid 04/15/21 02/06/23 Rx overdose #2 ea cyanocobalamin (vitamin B-12) 500 500 mcg PO DAILY 01/02/22 02/06/23 History mcg tablet pravastatin 40 mg tablet 40 mg PO HS #100 tabs 01/20/22 02/06/23 Rx hydrochlorothiazide 25 mg tablet 25 mg PO DAILY #90 tabs 03/05/22 02/06/23 Rx gabapentin 300 mg capsule 300 mg PO .COMPLEX #120 caps 08/28/22 02/06/23 Rx amlodipine 5 mg tablet 5 mg PO DAILY #90 tabs 11/10/22 02/06/23 Rx duloxetine 60 mg capsule,delayed 60 mg PO DAILY #90 caps 11/10/22 02/06/23 Rx release meloxicam 15 mg tablet 15 mg PO DAILY #90 tabs 11/10/22 02/06/23 Rx buprenorphine 5 mcg/hour weekly 1 patch transdermal .COMPLEX #4 ea 01/27/23 02/06/23 Rx transdermal patch (Butrans) oxycodone 5 mg tablet 5 mg PO QID PRN Lumbar post 02/02/23 02/06/23 Rx laminectomy syndrome #120 tabs Patient History Medical History B-cell lymphoproliferative disorder BPH (benign prostatic hyperplasia) Chronic back pain TO LEGS R/L ON OCC History of adenomatous polyp of colon Hyperlipidemia Hypertension Opioid dependence Osteoarthritis Postlaminectomy syndrome of lumbosacral region Postlaminectomy syndrome of thoracic region Scoliosis Tubulovillous adenoma of colon Surgical History Cancer BASAL CELL FACE BACK-REMOVAL History of arthroscopy LEFT KNEE History of colonoscopy Status post laminectomy with spinal fusion Family History Father CHF (congestive heart failure) Neuropathy Sister Breast cancer Mother Dementia Denies family history of Ovarian cancer Prostate cancer Diabetes Coronary heart disease Myocardial infarction Lung cancer Colorectal cancer Social History Smoking Status: Never smoker Tobacco Type: Cigarettes Age Started Using Tobacco: 17; Age Quit Using Tobacco: 29; packs per day: 1; Cigarettes Per Day: 1 PPD; Second Hand Exposure: No; Do You Dip or Chew Tobacco: No; Hx Alcohol Use: No Hx Substance Use: No Preferred Language: Kiswahili Communication Ability: Effective Visual Impairment: No Limitations Hearing Ability: Normal Marketing Support Specialist Required: No Beliefs That Will Affect Care: None marital status: Current Living Situation: Spouse Current Living Situation Comment: home with current occupational status: retired current occupation: [employer] How many Children do You have: 2 Feels Safe at Home: Yes Childhood Exposure to Second-Hand Smoke: No Diet: regular caffeine: Yes during the past year weight has: remained stable Dental Care, Regularly: Yes Physical Activity Frequency: 1-2 Times per Week Physical Activity Frequency Comment: strength training, 60 minutes Seatbelt Use: always Sunscreen Use: Yes Assistive Devices: Walker Physical Exam Physical Exam: GENERAL: Speech and cognition is intact. Mood and affect is appropriate. Does not appear in acute distress. Lying supine in bed. HEAD: Normocephalic; atraumatic. NECK: Full ROM; trachea is midline. CHEST: Regular chest respiration and excursion. EXTREMITIES: No TTP. Distal sensation and pulses intact bilaterally. BACK: Unable to test motion. NEURO: CN II-XII grossly intact. Awake, alert, and oriented x 3. Distal sensation of lower legs intact.\\ Negative clonus bilaterally SKIN: No lesions, erythema, or rashes noted. LOWER EXTREMITIES: R Hip flexion 5/5; knee extension 5/5; knee flexion 4+/5; ankle dorsiflexion 5/5; ankle plantar flexion 5/5; EHL 3-/5 L Hip flexion 5/5; knee extension 4+/5; knee flexion 4+/5; ankle dorsiflexion 0/5; ankle plantar flexion 0/5; EHL 0/5 Results (Pain Clinic) Diagnostic Review CT Findings: CT lumbar spine wo con HISTORY: 82 years-old Male worsening LBP; h/o hardware loosening COMPARISON: 08/26/2022 TECHNIQUE: Multiple axial CT images of the lumbar spine were obtained without the use of IV contrast. A dose lowering technique was used consistent with the principals of ALARA. FINDINGS: Study is limited secondary to significant streak artifact from the extensive spinal fusion hardware. Atherosclerosis of the abdominal aorta. There is a 3.4 x 1.8 x 4.2 cm hyperdense right-sided paraspinal structure at T11-T12 which is new from prior. Similar-appearing hyperdense 3.2 cm focus is noted within the central canal at the T11-T12 level. Unchanged chronic fracture lines are noted within the posterior elements at T12. Chronic widening of the T12-L1 disc space with considerable amount of air within the disc space again noted. Chronic Schmorl's node/compression deformities in the thoracic spine are again noted. The right L2 screw is again noted extending through the L1-L2 disc space terminating within the L1 vertebral body. Bilateral iliac bolts are in place. Lucency around the left interpedicular screw at L5, both interpedicular screws at S1, the anterior screws at L5 and S1, and both iliac bolts indicate loosening. Lumbar levoscoliosis. Healing subacute nonspecific fractures of the left 11th and 12th ribs. IMPRESSION: 1. 4.2 cm ovoid circumscribed hyperdense right paraspinal structure at T11-T12 with similar appearing 3.2 cm structure within the central canal at this interspace. There is associated severe central canal stenosis. These findings are new/progressed compared to the 08/26/2022 study and favor calcified sequestered disc fragments. 2. Chronic compression deformities with extensive fusion hardware redemonstrated. 3. Evidence of hardware loosening with chronic fractures within the posterior elements at T12. 4. Unchanged appearance of the T12 deformity with progressive air in the T12-L1 disc space. 5. Healing subacute nondisplaced fractures of the left 11th and 12th ribs.. ACT 112: Negative or not required by law. The above report was generated using voice recognition software. It may contain grammatical, syntax or spelling errors. Electronically signed by: Juma Abdalla M.D. 02/06/2023 4:06 PM Dictated:02/06/23 1547 Transcribed: 02/06/23 1547
--- NOTE | 2023-02-10 18:19 | Hospitalist Progress Note ---
Date of Service February 10, 2023 Assessment & Plan (1) Acute exacerbation of chronic low back pain: Plan: 82yo male with extensive spinal surgeries in past with hardware - known loosening. He presents with acute on chronic back pain following a fall at home. He reports worsening pain as well as weakness, gait instability and numbness/tingling. Patient pain prevents him from sitting up or ambulating in any manner at this time CT findings with possible calcified sequestered disc fragments with associated severe spinal canal stenosis. Loosening of hardware was previously noted. Patient's previous spine surgeons Dr. George [facility] -Continue tapering of his buprenorphine patch -Continue Oxycodone increased dose to 10 mg mg po QID PRN patient has as needed hydromorphone also IV -Tylenol 1000mg po TID on Cymbalta for adjunctive pain control Adjusted parenteral pain medications concern with buprenorphine may have some resistance to parenteral opiates -Heating pad -hydromorphone for acute pain control -Continue Gabapentin -Continue Duloxetine -Ortho-Spine consultation Dr Antony feels patient surgical need with exceeds her capacity for [facility], Initial discussion with pain management also feels this patient may not be amenable to any inpatient intervention and should reconsider surgical correction We will [facility] accepted in transfer by Dr. Escobar pending transfer arrangement (2) Edema: Plan: Etiology of bilateral LE edema uncertain. Patient is on Amlodipine - consider medication effects. TSH is WNL as are renal and hepatic laboratories. No prot ein present on UA. No clinical evidence of cellulitis. Patient weight is up appx 10# per record review (consider possible measuring error). Lower extremity Doppler are negative -Check CT abdomen/pelvis - negative for intra abdominal pathology Lower extremity edema did not respond to diuretic therapy or elevation, diuretic therapy led to hypotension requiring fluid bolus (3) Hypertension: Plan: Chronic. Blood pressure is now stable after fluid bolus and holding amlodipine and hydrochlorothiazide (4) Hyperlipidemia: Plan: Chronic. Stable -Continue Pravastatin 40mg po daily Plan After pain management did not feel patient is appropriate for pain pump arranges were made for transfer to [facility] however around 7 PM the patient requested to speak to me he wished for me to wait until his showed up difficulty being rushed off to [place]. We had a conversation regarding his only options would really be to have attempted pain control with possible prolonged bedrest versus an evaluation at the surgical center which has expertise to perform complex revision of his back. 45 additional minutes were spent in the evening talking to the patient and his for extended visit on this date Code - DNR/DNI per discussion with patient Admission and Anticipated Discharge Date Admission Date: February 07, 2023 Subjective Patient is in significant discomfort there is a some left lower extremity weakness was evaluated here by Dr. Antony and felt that he likely has an unstable spinal hardware and should be considered for a significant leg complex procedure, 1 which we cannot perform here, and be referred back to Dr. George for surgical evaluation in [facility] Patient is agreeable spoke to [facility] excepted in transfer by Dr. Tuttle transfer process is inaccurate unclear when he complete Physical Exam Physical Exam: Patient has no hyperreflexia to the lower extremities has gross tactile sensation his patellar reflexes are absent even with distraction Does have some objective decree strength to his left lower extremity Cardiopulmonary exam is stable Results & Data Results & Data Vital Signs (Past 12 Hours) Vital Signs Temp Pulse Resp BP Pulse Ox O2 Del Method 02/10/23 15:40 97.9 F 83 16 148/79 H 93 Room Air 02/10/23 06:50 97.5 F L 70 16 147/75 H 93 Room Air PG Care Time/CCT Total # of Minutes Spent Total Time Spent with Patient: Total time spent is greater than 50% in coordination of care (as documented) at patient's floor/unit and/or counseling patient: Coding Level of Care Code 83850 SUB INP/OBS CARE 3/50MIN (25 - SIGNIFICANT, SEPARATELY IDENTIFIABLE ) Diagnoses Acute exacerbation of chronic low back pain M54.50; G89.29 Edema R60.9 Hypertension I10 Hyperlipidemia E78.5 Time Spent (min) 45
--- NOTE | 2023-02-10 18:20 | Discharge Summary ---
Date of Service February 10, 2023 Admission HPI Per Admitting Provider Clemencia Bower is an 82yo male with B-cell lymphoma on surveillance, HTN, HLP and BPH presenting with worsening back pain and bilateral LE edema. Patient has had multiple back surgeries in the past with extensive hardware in place. He suffers from postlaminectomy syndrome of the thoracic/lumbosacral region and is on chronic opioid therapy. He follows with Pain management - currently on a Buspirone patch which is being weaned off. His Oxycodone was recently changed to 5mg po q 6 hours as needed. Patient has had several falls over the last month. His most recent fall was yesterday when he lost his balance and fell onto the carpeted floor in his home. He was unable to get up due to pain and limited mobility and struggled on the floor twisting and turning to get up. Since then he has had acute worsening of his lumbar back pain. The pain is worst on the left side lower lumbar region. He also reports inability to stand and difficulty ambulating due to weakness and pain. He has had numbness in the LLE in the past but now has new numbness and tingling in the RLE. He denies bowel or bladder complaints. No fever, chills. Patient additionally reports 2 days of progressive bilateral LE edema. His legs feel tight and heavy. He denies cough, SOB, orthopnea, abdominal pain or distention. Per record review - weight on 01/26/23 was 89kg, today is 93kg In the ER he is afebrile, HD stable, NAD ER Course: Tylenol 1gm IV ordered Morphine 2mg IV ordered Principal Diagnosis Intractable back pain loosening of hardware Inability to sit up or move about Discharge Exam Patient has pain with trying to front flex he is in no significant respiratory distress Heart exam is regular lungs are decreased at the bases Neurologically although complaining of some left leg weakness is difficult to reproduce on exam patient is not able to be assessed standing and walking Discharge Data Allergies Allergy/AdvReac Type Severity Reaction Status Date / Time simvastatin AdvReac Intermediate Rash Verified 01/26/23 13:10 Consultations 02/06/23 16:16 ED Decision to Admit Stat 02/06/23 19:18 Consult Orthopedic Spine Surgery Routine 02/09/23 08:02 Consult Pain Management Routine 02/10/23 15:36 Burn CD for patient Routine Ordered Studies 02/06/23 15:10 CT lumbar spine wo con Stat 02/06/23 19:18 CT Abd and Pelvis [CT abd pelvis IV con only] Routine US venous doppler LE BI Urgent Hospital Course (1) Acute exacerbation of chronic low back pain: 82yo male with extensive spinal surgeries in past with hardware - known loosening. He presents with acute on chronic back pain following a fall at home. He reports worsening pain as well as weakness, gait instability and numbness/tingling. Patient pain prevents him from sitting up or ambulating in any manner at this time CT findings with possible calcified sequestered disc fragments with associated severe spinal canal stenosis. Loosening of hardware was previously noted. Patient's previous spine surgeons Dr. George [facility] -Continue tapering of his buprenorphine patch -Continue Oxycodone increased dose to 10 mg mg po QID PRN patient has as needed hydromorphone also IV -Tylenol 1000mg po TID on Cymbalta for adjunctive pain control Adjusted parenteral pain medications concern with buprenorphine may have some resistance to parenteral opiates -Heating pad -hydromorphone for acute pain control -Continue Gabapentin -Continue Duloxetine -Ortho-Spine consultation Dr Antony feels patient surgical need with exceeds her capacity for [facility], Initial discussion with pain management also feels this patient may not be amenable to any inpatient intervention and should reconsider surgical correction We will [facility] accepted in transfer by Dr. Escobar pending transfer arrangement (2) Edema: Etiology of bilateral LE edema uncertain. Patient is on Amlodipine - consider medication effects. TSH is WNL as are renal and hepatic laboratories. No protein present on UA. No clinical evidence of cellulitis. Patient weight is up appx 10# per record review (consider possible measuring error). Lower extremity Doppler are negative -Check CT abdomen/pelvis - negative for intra abdominal pathology Lower extremity edema did not respond to diuretic therapy or elevation, diuretic therapy led to hypotension requiring fluid bolus (3) Hypertension: Chronic. Blood pressure is now stable after fluid bolus and holding amlodipine and hydrochlorothiazide (4) Hyperlipidemia: Chronic. Stable -Continue Pravastatin 40mg po daily Plan Given his failed back syndrome patient now request to speak to pain management for consideration of adjunctive pain control. Lovenox for DVT prevention Code - DNR/DNI per discussion with patient Discharge Plan Discharge Items Patient Disposition: Transfer Acute Care Hospital Reason For Visit: DIZZINESS Discharge Diagnosis: intractable back pain referal for possible surgical revision glucuose intolerance hypertension Activity: Per Instructions section Non-emergency contact: Primary Care Provider Call non-emergency contact if: your symptoms worsen Follow-up/Referrals: Michael Casarez MD [Primary Care Provider] - Diet: Carb Consistent or DM2 Addtl Attending Provider Instructions: as per recommendations from [facility] Pending Studies at Discharge: No Stand-Alone Forms: [facility] Sk[facility] Items Patient informed of condition?: Yes DNR: Yes Discharge Level of Care: Other Communicable Disease: No Discharge Prognosis: Stable Lines: None Urinary Catheter: No Medications and DC Order Prescriptions: New buprenorphine [Butrans] 5 mcg/hour Patch Weekly 5 mcg transdermal Q7D@0900 Qty: 0 0RF Continued cholecalciferol (vitamin D3) 25 mcg (1,000 unit) tablet 25 mcg PO DAILY pravastatin 40 mg tablet 40 mg PO HS Qty: 100 2RF gabapentin 300 mg capsule 300 mg PO .COMPLEX Qty: 120 11RF Rx Instructions: 300 mg orally 300mg am, 300mg afternoon, 600mg evening.; docusate sodium 100 mg capsule 100 mg PO BID cyanocobalamin (vitamin B-12) 500 mcg tablet 500 mcg PO DAILY duloxetine 60 mg capsule,delayed release(DR/EC) 60 mg PO DAILY Qty: 90 3RF meloxicam 15 mg tablet 15 mg PO DAILY Qty: 90 3RF PreserVision AREDS-2 [id number] Capsule 1 tab PO BID Changed oxycodone 5 mg tablet 10 mg PO QID MDD 4 tabs PRN (Reason: Lumbar post laminectomy syndrome) Qty: 120 0RF Discontinued buprenorphine [Butrans] 5 mcg/hour patch weekly 1 patch transdermal .COMPLEX Qty: 4 0RF Rx Instructions: 2 patches transdermally x1 week, then 1 patch transdermally x2 weeks; hydrochlorothiazide 25 mg tablet 25 mg PO DAILY Qty: 90 3RF naloxone 4 mg/actuation spray,non-aerosol 4 mg intranasal Q3M PRN (Reason: opioid overdose) Qty: 2 1RF Rx Instructions: spray 1 dose into ONE nostril; alternate nostrils w each dose until help arrives amlodipine 5 mg tablet 5 mg PO DAILY Qty: 90 3RF Discharge Orders: Discharge Order (Routine); Ordered 02/10/23 Ordered By: Jonathon Tim Admission Data Admit Date/Time: 02/07/23 10:33 Attending Provider: Jonathon Tim Admit Provider: Yazmin Cervantes Primary Care Provider: Michael Casarez Other Providers: Yazmin Cervantes ; Guzman Antony ; Ronnie Gregory Other Interventions: Discharge Summary Assessment (RN) Last Done: 02/10/23 16:25 Coding Diagnoses Acute exacerbation of chronic low back pain M54.50; G89.29 Edema R60.9 Hypertension I10 Hyperlipidemia E78.5
[2023-02-10] MEDS: PRAVASTATIN SOD 40 MG TAB PO SCH (20:34)
[2023-02-10] MEDS: ENOXAPARIN INJ 40 MG/0.4 ML SYR SQ SCH (20:35)
[2023-02-11] MEDS: CHECK BUPRENORPHINE PATCH SCH ×2 (08:03→17:14)
[2023-02-11] MEDS: SENNA 8.6 MG TAB PO SCH ×2 (08:05→10:53)
[2023-02-11] MEDS: DULoxetine HCL 60 MG CAP PO SCH (08:06)
[2023-02-11] MEDS: GABAPENTIN 300 MG CAP PO SCH ×3 (08:06→20:21)
[2023-02-11] MEDS: DOCUSATE SODIUM 100 MG CAP PO SCH ×2 (08:06→20:21)
[2023-02-11] MEDS: MELOXICAM 7.5 MG TAB PO SCH (08:06)
[2023-02-11] MEDS: ACETAMINOPHEN 500 MG TAB PO SCH ×3 (08:06→20:23)
[2023-02-11] MEDS: oxyCODONE HCL IR 5 MG TAB (IMMEDIATE RELEASE) PO PRN ×2 (10:51→20:23)
--- NOTE | 2023-02-11 18:07 | Hospitalist Progress Note ---
Date of Service February 11, 2023 Assessment & Plan (1) Acute exacerbation of chronic low back pain: Plan: 82yo male with extensive spinal surgeries in past with hardware - known loosening. He presents with acute on chronic back pain following a fall at home. He reports worsening pain as well as weakness, gait instability and numbness/tingling. Patient pain prevents him from sitting up or ambulating in any manner at this time reviewed by orthospine here feels patient may have an unstable situation when he Formflex is loosening of hardware recommendation for referral to [facility] for consideration of complex revision CT findings with possible calcified sequestered disc fragments with associated severe spinal canal stenosis. Loosening of hardware was previously noted. Patient's previous spine surgeons Dr. George [facility] -Continue tapering of his buprenorphine patch -Continue Oxycodone increased dose to 10 mg mg po QID PRN patient has as needed hydromorphone also IV -Tylenol 1000mg po TID on Cymbalta for adjunctive pain control Adjusted parenteral pain medications concern with buprenorphine may have some resistance to parenteral opiates -Heating pad -hydromorphone for acute pain control -Continue Gabapentin -Continue Duloxetine -Ortho-Spine consultation Dr Antony feels patient surgical need with exceeds her capacity for [facility], Initial discussion with pain management also feels this patient may not be amenable to any inpatient intervention and should reconsider surgical correction After prolonged discussion on 02/11 patient permitted call to [facility] where he was accepted in transfer by Dr. Escobar pending transfer arrangement (2) Edema: Plan: Etiology of bilateral LE edema uncertain. Patient is on Amlodipine - consider medication effects. TSH is WNL as are renal and hepatic laboratories. No protein present on UA. No clinical evidence of cellulitis. Patient weight is up appx 10# per record review (consider possible measuring error). Lower extremity Doppler are negative -Checked CT abdomen/pelvis - negative for intra abdominal pathology Lower extremity edema did not respond to diuretic therapy or elevation, diuretic therapy led to hypotension requiring fluid bolus (3) Hypertension: Plan: Chronic. Blood pressure is now stable after fluid bolus and holding amlodipine and hydrochlorothiazide (4) Hyperlipidemia: Plan: Chronic. Stable -Continue Pravastatin 40mg po daily Plan On 02/11/2023 after pain management did not feel patient is appropriate for pain pump arranges were made for transfer to [facility] however around 7 PM the patient requested to speak to me he wished for me to wait until his showed up difficulty being rushed off to [place]. We had a conversation regarding his only options would really be to have attempted pain control with possible prolonged bedrest versus an evaluation at the surgical center which has expertise to perform complex revision of his back. Code - DNR/DNI per discussion with patient Admission and Anticipated Discharge Date Admission Date: February 07, 2023 Subjective Patient is in significant discomfort there is a some left lower extremity weakness patient now having some more radicular pain down his left leg unable to even sit at the bedside to eat awaiting transfer arrangements Patient is agreeable spoke to [facility] excepted in transfer by Dr. Tuttle transfer process is inaccurate unclear when he complete Physical Exam Physical Exam: Patient has pain with movement and sitting. He has no confrontational muscular weakness however has subjective paresthesias to the lateral left thigh around across his knee and then down to the medial foot Heart exam is regular lungs are decreased at the bases Neurologically although complaining of some left leg weakness is difficult to reproduce on exam patient is not able to be assessed standing and walking Results & Data Results & Data Vital Signs (Past 12 Hours) Vital Signs Temp Pulse Resp BP Pulse Ox O2 Del Method 02/11/23 14:56 97.5 F L 86 16 128/89 94 Room Air 02/11/23 07:23 97.5 F L 84 16 150/74 H 94 Room Air PG Care Time/CCT Total # of Minutes Spent Total Time Spent with Patient: Total time spent is greater than 50% in coordination of care (as documented) at patient's floor/unit and/or counseling patient: Coding Level of Care Code 31329 SUB INP/OBS CARE 2/35MIN Diagnoses Acute exacerbation of chronic low back pain M54.50; G89.29 Edema R60.9 Hypertension I10 Hyperlipidemia E78.5
[2023-02-11] MEDS: ENOXAPARIN INJ 40 MG/0.4 ML SYR SQ SCH (20:21)
[2023-02-11] MEDS: PRAVASTATIN SOD 40 MG TAB PO SCH (20:24)
[2023-02-12] MEDS: CHECK BUPRENORPHINE PATCH SCH ×3 (00:49→14:11)
[2023-02-12] MEDS: SENNA 8.6 MG TAB PO SCH (07:58)
[2023-02-12] MEDS: GABAPENTIN 300 MG CAP PO SCH ×3 (07:58→22:04)
[2023-02-12] MEDS: DULoxetine HCL 60 MG CAP PO SCH (07:58)
[2023-02-12] MEDS: ACETAMINOPHEN 500 MG TAB PO SCH ×3 (07:59→22:04)
[2023-02-12] MEDS: MELOXICAM 7.5 MG TAB PO SCH (07:59)
[2023-02-12] MEDS: oxyCODONE HCL IR 5 MG TAB (IMMEDIATE RELEASE) PO PRN ×2 (08:03→22:07)
[2023-02-12] MEDS: DOCUSATE SODIUM 100 MG CAP PO SCH ×2 (08:03→22:03)
[2023-02-12] MEDS: POLYETHYLENE (MIRALAX) 17 GM PACK PO PRN (08:11)
[2023-02-12] MEDS: ENOXAPARIN INJ 40 MG/0.4 ML SYR SQ SCH (22:03)
[2023-02-12] MEDS: PRAVASTATIN SOD 40 MG TAB PO SCH (22:04)
--- NOTE | 2023-02-12 22:59 | Hospitalist Progress Note ---
Date of Service February 12, 2023 Assessment & Plan (1) Acute exacerbation of chronic low back pain: Plan: 82yo male with extensive spinal surgeries in past with hardware - known loosening. He presents with acute on chronic back pain following a fall at home. He reports worsening pain as well as weakness, gait instability and numbness/tingling. Patient pain prevents him from sitting up or ambulating in any manner at this time reviewed by orthospine here feels patient may have an unstable situation when he Formflex is loosening of hardware recommendation for referral to [facility], operated by [facility] for consideration of complex revision CT findings with possible calcified sequestered disc fragments with associated severe spinal canal stenosis. Loosening of hardware was previously noted. Patient's previous spine surgeons Dr. George [facility] -Continue tapering of his buprenorphine patch -Continue Oxycodone increased dose to 10 mg mg po QID PRN patient has as needed hydromorphone also IV -Tylenol 1000mg po TID on Cymbalta for adjunctive pain control Adjusted parenteral pain medications concern with buprenorphine may have some resistance to parenteral opiates -Heating pad -hydromorphone for acute pain control -Continue Gabapentin -Continue Duloxetine -Ortho-Spine consultation Dr Antony feels patient surgical need with exceeds her capacity for [facility], Initial discussion with pain management also feels this patient may not be amenable to any inpatient intervention and should reconsider surgical correction After prolonged discussion on 02/11 patient permitted call to [facility], [facility] by [facility] where he was accepted in transfer by Dr. Escobar pending transfer arrangement Dr. Escobar asked to confirm need for transfer on 02/12. Given patinet's inmobility, outpatient followup will be difficult. (2) Edema: Plan: Etiology of bilateral LE edema uncertain. Patient is on Amlodipine - consider medication effects. TSH is WNL as are renal and hepatic laboratories. No protein present on UA. No clinical evidence of cellulitis. Patient weight is up appx 10# per record review (consider possible measuring error). Lower extremity Doppler are negative -Checked CT abdomen/pelvis - negative for intra abdominal pathology Lower extremity edema did not respond to diuretic therapy or elevation, diuretic therapy led to hypotension requiring fluid bolus (3) Hypertension: Plan: Chronic. Blood pressure is now stable after fluid bolus and holding amlodipine and hydrochlorothiazide (4) Hyperlipidemia: Plan: Chronic. Stable -Continue Pravastatin 40mg po daily Plan On 02/11/2023 after pain management did not feel patient is appropriate for pain pump arranges were made for transfer to [facility], [facility] by [facility] however around 7 PM the patient requested to speak to me he wished for me to wait until his showed up difficulty being rushed off to [place]. We had a conversation regarding his only options would really be to have attempted pain control with possible prolonged bedrest versus an evaluation at the surgical center which has expertise to perform complex revision of his back. Code - DNR/DNI per discussion with patient Admission and Anticipated Discharge Date Admission Date: February 07, 2023 Subjective 82 yo male reports no new symptoms. Review of Systems Review of Systems: All systems reviewed & are unremarkable except as noted in HPI & below Physical Exam Physical Exam: Patient has pain with movement and sitting. He has no confrontational muscular weakness however has subjective paresthesias to the lateral left thigh around across his knee and then down to the medial foot Heart exam is regular lungs are decreased at the bases Neurologically although complaining of some left leg weakness is difficult to reproduce on exam patient is not able to be assessed standing and walking Results & Data Results & Data Vital Signs (Past 12 Hours) Vital Signs Temp Pulse Resp BP Pulse Ox O2 Del Method 02/12/23 22:00 36.5 C 89 16 146/74 H 94 Room Air 02/12/23 15:16 36.6 C 76 16 97/67 L 94 Room Air PG Care Time/CCT Total # of Minutes Spent Total Time Spent with Patient: Total time spent is greater than 50% in coordination of care (as documented) at patient's floor/unit and/or counseling patient: Coding Level of Care Code 04361 SUB INP/OBS CARE 2/35MIN Diagnoses Acute exacerbation of chronic low back pain M54.50; G89.29 Edema R60.9 Hypertension I10 Hyperlipidemia E78.5
[2023-02-13] MEDS: CHECK BUPRENORPHINE PATCH SCH ×3 (01:03→13:31)
[2023-02-13 07:12] LABS: Hematocrit (blood only) 30.7 % (42.0-52.0); Hemoglobin 10.3 g/dl (14.0-18.0); Mean Corpuscular Hemoglobin 28.9 pg (25.0-34.0); Mean Corpuscular Hgb Conc 33.6 g/dL (32.0-36.0); Mean Platelet Volume 8.7 fL (9.4-12.4); Platelet Count 301 K/uL (130-400); RDW Coefficient of Variation 16.7 % (11.5-14.5); RDW Standard Deviation 52.6 fL (36.4-46.3); Red Blood Count 3.57 M/uL (4.70-6.10); White Blood Count 21.63 K/ul (4.8-10.8)
[2023-02-13 07:25] LABS: Albumin Level 3.7 gm/dl (3.4-5.0); BUN Creatinine Ratio 28.3 (10-20); Bilirubin Direct 0.1 mg/dl (0-0.2); Bilirubin,Total 0.5 mg/dl (0.2-1.0); Calcium 9.2 mg/dl (8.6-10.3); Creatinine Clr Calc Pharmacy 63.4 ml/min; Est GFR (African American) 81.3 ml/min; Est GFR (Non-African American) 70.1 ml/min; Potassium 4.3 mmol/L (3.5-5.1); Total Protein 6.7 gm/dl (6.0-8.3)
[2023-02-13] MEDS: ACETAMINOPHEN 500 MG TAB PO SCH ×3 (07:41→19:45)
[2023-02-13] MEDS: MELOXICAM 7.5 MG TAB PO SCH (07:42)
[2023-02-13] MEDS: DOCUSATE SODIUM 100 MG CAP PO SCH ×2 (07:42→19:44)
[2023-02-13] MEDS: SENNA 8.6 MG TAB PO SCH (07:42)
[2023-02-13] MEDS: DULoxetine HCL 60 MG CAP PO SCH (07:42)
[2023-02-13] MEDS: GABAPENTIN 300 MG CAP PO SCH ×3 (07:42→19:45)
[2023-02-13] MEDS: POLYETHYLENE (MIRALAX) 17 GM PACK PO PRN (07:55)
[2023-02-13] MEDS ORDERED: BUPRENORPHINE 5 MCG/HR TDSY TD SCH (09:00)
[2023-02-13] MEDS: oxyCODONE HCL IR 5 MG TAB (IMMEDIATE RELEASE) PO PRN (10:19)
--- NOTE | 2023-02-13 10:29 | Hospitalist Progress Note ---
Date of Service February 13, 2023 Assessment & Plan (1) Acute exacerbation of chronic low back pain: Plan: 82yo male with extensive spinal surgeries in past with hardware - known loosening. He presents with acute on chronic back pain following a fall at home. He reports worsening pain as well as weakness, gait instability and numbness/tingling. Patient pain prevents him from sitting up or ambulating in any manner at this time reviewed by orthospine here feels patient may have an unstable situation when he Formflex is loosening of hardware recommendation for referral to [facility] for consideration of complex revision CT findings with possible calcified sequestered disc fragments with associated severe spinal canal stenosis. Loosening of hardware was previously noted. Patient's previous spine surgeons Dr. George [facility] -Continue tapering of his buprenorphine patch -Continue Oxycodone increased dose to 10 mg mg po QID PRN patient has as needed hydromorphone also IV -Tylenol 1000mg po TID on Cymbalta for adjunctive pain control Adjusted parenteral pain medications concern with buprenorphine may have some resistance to parenteral opiates -Heating pad -hydromorphone for acute pain control -Continue Gabapentin -Continue Duloxetine -Ortho-Spine consultation Dr Antony feels patient surgical need with exceeds her capacity for [facility], Initial discussion with pain management also feels this patient may not be amenable to any inpatient intervention and should reconsider surgical correction After prolonged discussion on 02/11 patient permitted call to [facility] where he was accepted in transfer by Dr. Escobar pending transfer arrangement Dr. Escobar asked to confirm need for transfer on 02/12. Given patient's immobility, outpatient followup will be difficult. Awaiting bed availability on 02/13 (2) Edema: Plan: Etiology of bilateral LE edema uncertain. Patient is on Amlodipine - consider medication effects. TSH is WNL as are renal and hepatic laboratories. No protein present on UA. No clinical evidence of cellulitis. Patient weight is up appx 10# per record review (consider possible measuring error). Lower extremity Doppler are negative -Checked CT abdomen/pelvis - negative for intra abdominal pathology Lower extremity edema did not respond to diuretic therapy or elevation, diuretic therapy led to hypotension requiring fluid bolus (3) Hypertension: Plan: Chronic. Blood pressure is now stable after fluid bolus and holding amlodipine and hydrochlorothiazide (4) Hyperlipidemia: Plan: Chronic. Stable -Continue Pravastatin 40mg po daily Plan Code - DNR/DNI per discussion with patient Admission and Anticipated Discharge Date Admission Date: February 07, 2023 Subjective Patient reports no new symptoms. Review of Systems Review of Systems: All systems reviewed & are unremarkable except as noted in HPI & below Physical Exam Physical Exam: Patient has pain with movement and sitting. He has no confrontational muscular weakness however has subjective paresthesias to the lateral left thigh around across his knee and then down to the medial foot Heart exam is regular lungs are decreased at the bases Neurologically although complaining of some left leg weakness is difficult to reproduce on exam patient is not able to be assessed standing and walking Results & Data Results & Data Vital Signs (Past 12 Hours) Vital Signs Temp Pulse Resp BP Pulse Ox O2 Del Method 02/13/23 07:33 36.3 C L 81 16 118/66 94 Room Air PG Care Time/CCT Total # of Minutes Spent Total Time Spent with Patient: Total time spent is greater than 50% in coordination of care (as documented) at patient's floor/unit and/or counseling patient: Coding Level of Care Code 57066 SUB INP/OBS CARE 2/35MIN Diagnoses Acute exacerbation of chronic low back pain M54.50; G89.29 Edema R60.9 Hypertension I10 Hyperlipidemia E78.5
[2023-02-13] MEDS: PRAVASTATIN SOD 40 MG TAB PO SCH (19:44)
[2023-02-13] MEDS: ENOXAPARIN INJ 40 MG/0.4 ML SYR SQ SCH (19:44)
[2023-02-14] MEDS: CHECK BUPRENORPHINE PATCH SCH ×2 (01:20→08:23)
[2023-02-14] MEDS: oxyCODONE HCL IR 5 MG TAB (IMMEDIATE RELEASE) PO PRN (05:13)
[2023-02-14] MEDS: GABAPENTIN 300 MG CAP PO SCH (08:23)
[2023-02-14] MEDS: MELOXICAM 7.5 MG TAB PO SCH (08:23)
[2023-02-14] MEDS: ACETAMINOPHEN 500 MG TAB PO SCH (08:23)
[2023-02-14] MEDS: DULoxetine HCL 60 MG CAP PO SCH (08:23)
[2023-02-14] MEDS: SENNA 8.6 MG TAB PO SCH (08:23)
[2023-02-14] MEDS: DOCUSATE SODIUM 100 MG CAP PO SCH (08:24)
--- NOTE | 2023-02-14 09:09 | Discharge Summary ---
Date of Service date of admission - February 06, 2023 date of discharge - February 14, 2023 Admission HPI Per Admitting Provider Clemencia Bower is an 82yo male with B-cell lymphoma on surveillance, HTN, HLP and BPH presenting with worsening back pain and bilateral LE edema. Patient has had multiple back surgeries in the past with extensive hardware in place. He suffers from postlaminectomy syndrome of the thoracic/lumbosacral region and is on chronic opioid therapy. He follows with Pain management - currently on a Buspirone patch which is being weaned off. His Oxycodone was recently changed to 5mg po q 6 hours as needed. Patient has had several falls over the last month. His most recent fall was yesterday when he lost his balance and fell onto the carpeted floor in his home. He was unable to get up due to pain and limited mobility and struggled on the floor twisting and turning to get up. Since then he has had acute worsening of his lumbar back pain. The pain is worst on the left side lower lumbar region. He also reports inability to stand and difficulty ambulating due to weakness and pain. He has had numbness in the LLE in the past but now has new numbness and tingling in the RLE. He denies bowel or bladder complaints. No fever, chills. Patient additionally reports 2 days of progressive bilateral LE edema. His legs feel tight and heavy. He denies cough, SOB, orthopnea, abdominal pain or distention. Per record review - weight on 01/26/23 was 89kg, today is 93kg In the ER he is afebrile, HD stable, NAD ER Course: Tylenol 1gm IV ordered Morphine 2mg IV ordered Principal Diagnosis 1. Intractable back pain due to T11-T12 severe spinal stenosis 2. Referral to [facility] for possible surgical revision of back 3. Hypertension 4. Healing subacute nondisplaced rib fractures on left - #'s 06/28 5. T12 hardware loosening with chronic fractures based on lumbar spine CT Discharge Exam gen - NAD, lying flat in bed comfortably mouth - MMM heart - RRR, s1 s2, no murmur lungs - CTA b/l abd - soft NT ND BS+ ext - no edema, pulses 2+ b/l neuro - strength hip flexion near 5/5 b/l; b/l foot drop psych - a/o x 3 Discharge Data Allergies Allergy/AdvReac Type Severity Reaction Status Date / Time simvastatin AdvReac Intermediate Rash Verified 01/26/23 13:10 Consultations Orthopedic Spine Surgery - Tristan Antony DO Pain Management PT, OT Procedures Performed Echocardiogram: Ordered Studies Chest X-Ray 02/06/23 15:10 XR chest 1V portable HISTORY: 82 years-old Male weakness acute weakness COMPARISON: 12/16/2021 TECHNIQUE: AP view of the chest FINDINGS: Cardiac silhouette is enlarged. Chronic right hemidiaphragmatic elevation. Hiatal hernia. No pneumothorax, pleural effusion, airspace consolidation or overt pulmonary edema. Unchanged chronic interstitial coarsening. Degenerative changes of the shoulders and spine. Extensive spinal fusion hardware. IMPRESSION: 1. Cardiomegaly without acute process. 2. Mild bibasilar atelectasis. 3. Hiatal hernia. ACT 112: Negative or not required by law. The above report was generated using voice recognition software. It may contain grammatical, syntax or spelling errors. Electronically signed by: Juma Abdalla M.D. 02/06/2023 3:[address] 02/06/23 15:10 CT lumbar spine wo con HISTORY: 82 years-old Male worsening LBP; h/o hardware loosening COMPARISON: 08/26/2022 TECHNIQUE: Multiple axial CT images of the lumbar spine were obtained without the use of IV contrast. A dose lowering technique was used consistent with the principals of ALARA. FINDINGS: Study is limited secondary to significant streak artifact from the extensive spinal fusion hardware. Atherosclerosis of the abdominal aorta. There is a 3.4 x 1.8 x 4.2 cm hyperdense right-sided paraspinal structure at T11-T12 which is new from prior. Similar-appearing hyperdense 3.2 cm focus is noted within the central canal at the T11-T12 level. Unchanged chronic fracture lines are noted within the posterior elements at T12. Chronic widening of the T12-L1 disc space with considerable amount of air within the disc space again noted. Chronic Schmorl's node/compression deformities in the thoracic spine are again noted. The right L2 screw is again noted extending through the L1-L2 disc space terminating within the L1 vertebral body. Bilateral iliac bolts are in place. Lucency around the left interpedicular screw at L5, both interpedicular screws at S1, the anterior screws at L5 and S1, and both iliac bolts indicate loosening. Lumbar levoscoliosis. Healing subacute nonspecific fractures of the left 11th and 12th ribs. IMPRESSION: 1. 4.2 cm ovoid circumscribed hyperdense right paraspinal structure at T11-T12 with similar appearing 3.2 cm structure within the central canal at this int erspace. There is associated severe central canal stenosis. These findings are new/progressed compared to the 08/26/2022 study and favor calcified sequestered disc fragments. 2. Chronic compression deformities with extensive fusion hardware redemonstrated. 3. Evidence of hardware loosening with chronic fractures within the posterior elements at T12. 4. Unchanged appearance of the T12 deformity with progressive air in the T12-L1 disc space. 5. Healing subacute nondisplaced fractures of the left 11th and 12th ribs.. ACT 112: Negative or not required by law. The above report was generated using voice recognition software. It may contain grammatical, syntax or spelling errors. Electronically signed by: Juma Abdalla M.D. 02/06/2023 4:06 PM Abdomen/Pelvis CT 02/06/23 19:18 Exam(s): CT ABDOMEN + PELVIS With Contrast IV Amt: 93 OPTIRAY 320 EXAM: CT Abdomen and Pelvis With Intravenous Contrast CLINICAL HISTORY: Reason for exam: bilateral LE edema, h/o cancer. TECHNIQUE: Axial computed tomography images of the abdomen and pelvis with intravenous contrast. CTDI is 24.65 mGy and DLP is 1222.14 mGy-cm. Automated exposure control was utilized for the study. A dose lowering technique was utilized adhering to the principles of ALARA. CONTRAST: Patient received 93 OPTIRAY 320 of IV contrast COMPARISON: 08/26/2022 FINDINGS: Lung bases: Unremarkable. No mass. No consolidation. Mediastinum: Moderate size esophageal hiatal hernia. ABDOMEN: Liver: Unremarkable. No mass. Gallbladder and bile ducts: Distended gallbladder. No calcified stones. No ductal dilation. Pancreas: Unremarkable. No mass. No ductal dilation. Spleen: Unremarkable. No splenomegaly. Adrenals: Unremarkable. No mass. Kidneys and ureters: Unremarkable. No solid mass. No hydronephrosis. Stomach and bowel: Unremarkable. No obstruction. No mucosal thickening. PELVIS: Appendix: No findings to suggest acute appendicitis. Bladder: Urinary bladder is mildly distended. Reproductive: Unremarkable as visualized. ABDOMEN and PELVIS: Intraperitoneal space: Unremarkable. No free air. No significant fluid collection. Bones/joints: L3, L2, and T12 vertebral body compression fractures. Stable postoperative changes extending from the sacrum to the lower thoracic spine which are incompletely evaluated on this exam. No acute osseous pathology. No dislocation. Soft tissues: Unremarkable. Vasculature: Unremarkable. No abdominal aortic aneurysm. Lymph nodes: Unremarkable. No enlarged lymph nodes. IMPRESSION: 1. CT of the abdomen pelvis negative for acute intra-abdominal pathology 2. Stable postoperative changes described above Electronically signed by: Ambrosio Hua MD 02/06/23 21:41 PM Venous Doppler Study 02/06/23 19:18 ULTRASOUND BILATERAL LOWER EXTREMITY VENOUS CLINICAL HISTORY: Lower extremity edema. COMPARISON STUDY: No priors. TECHNIQUE: Real-time, grayscale, and color Doppler sonography of the deep veins of the right and left lower extremity was performed from the inguinal crease to the calf. Compression and augmentation were utilized. FINDINGS: There is no sonographic evidence of deep venous thrombosis identified in the right or left lower extremity. The common femoral, superficial femoral, and popliteal veins are patent and normally compressible bilaterally. The greater saphenous vein and the profunda femoris vein at the junction with the common femoral vein are clear in both legs. The visualized calf veins are patent bilaterally. IMPRESSION: There is no sonographic evidence of deep venous thrombosis identified in the right or left lower extremity. ACT 112: Negative or not required by law. Electronically signed by: Gavin Allan M.D. 02/06/2023 10:06 PM Hospital Course (1) Thoracic spinal stenosis: Patient had spinal surgery at [facility] on 09/09/[address] Mikhail George. Specifically, records indicate he had revision of posterior B11-etkdil fusion with local autograft/allograft in 2019 due to "flat back syndrome," back pain, radiculopathy, and hardware failure. Additionally, his original back surgery was on 04/22/2019 that encompassed a L3 pedicle subtraction osteotomy with posterior fusion with instrumentation from T5-S1 (per records from [facility]). He presented to [facility] on 02/06[facility]23 due to worsening back pain, b/l LE paresthesias and weakness, and multiple falls. The patient reported that any time he sat up or stood up he would get pa resthesias from the waist down to the feet b/l. He had evidence of b/l foot drop on physical exam. He had been followed closely by [facility] for postlaminectomy syndrome of the thoracic/lumbosacral region and had been on chronic opioid therapy for a lengthy period of time prior to this hospitalization. CT lumbar spine on 02/06 showed severe T11-T12 spinal stenosis likely due to calcified sequestered disc fragments, T12 chronic fractures, and hardware loosening at T12. He was seen by both [facility] as well as ortho-spine, Dr Tristan Antony. Dr Antony recommended surgical evaluation at [facility] due to the complexity of his prior spine surgeries as well as the severe T11-T12 stenosis. Pain management also advised surgical evaluation at [facility]. He was continued on Butrans patch, cymbalta, NSAIDs, gabapentin, and oxycodone prn. He did receive gentle PT/OT while here. Mid-way through the patient's hospitalization - in light of his presentation as well as the recommendations from pain management/ortho-spine to transfer to tertiary care - spine surgery was contacted at [facility]. Dr Jonathon Tuttle, neurosurgery at [facility], ultimately accepted the patient in transfer for ongoing care and surgical consultation. On February 14, 2023, a bed was available at [facility] and the patient was transferred to [place] in stable/satisfactory condition. 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) he follows with the [facility] in [place] and is under surveillance; has not required treatment he also has had iron deficiency anemia and has received IV iron infusions - managed by [facility] (8) BPH loc w urin obs/LUTS: Despite #1 above he has had no urinary incontinence or recent urinary symptoms (9) Postlaminectomy syndrome of lumbosacral region: See #1 above (10) Opioid dependence: Followed by [facility] Butrans patch + oxycodone prn (11) Foot drop: Left > right but appears to be b/l 2nd to #1 above (12) Left rib fracture: #'s 11, 12 on left no significant symptoms seen incidentally on CT lumbar spine likely due to recent falls at home (13) Thoracic spine fracture: T12 - see above Plan I would like to thank Dr Jonathon Tuttle - Neurosurgery at [facility] in [place] - for accepting Mr Bower in transfer for ongoing care. Total Time Total Time Spent Total Time Spent (In Minutes): 45 Discharge Plan Discharge Items Patient Disposition: Transfer Acute Care Hospital Reason For Visit: DIZZINESS Discharge Diagnosis: 1. Intractable back pain due to T11-T12 severe spinal stenosis 2. Referral to [facility] for possible surgical revision of back 3. Hypertension 4. Recent bilateral LE edema - resolved; echo with preserved EF; creatinine wnl (0.99); albumin 3.7; no h/o liver disease; dopplers neg for DVT 5. Healing subacute nondisplaced rib fractures on left - #'s 06/28 6. T12 hardware loosening with chronic fractures based on lumbar spine CT Activity: Per Instructions section Non-emergency contact: Primary Care Provider Call non-emergency contact if: you have any medication questions, your symptoms worsen and your pain is not controlled Follow-up/Referrals: Michael Casarez MD [Primary Care Provider] - Diet: Carb Consistent or DM2 Addtl Attending Provider Instructions: Further instructions to follow after your stay at [facility] in [place] Pending Studies at Discharge: No Stand-Alone Forms: My [employer] Skilled Items Patient informed of condition?: Yes DNR: Yes Discharge Level of Care: Other Communicable Disease: No Discharge Prognosis: Stable Lines: Peripheral IV Urinary Catheter: No Medications and DC Order Prescriptions: New buprenorphine [Butrans] 5 mcg/hour Patch Weekly 5 mcg transdermal Q7D@0900 Qty: 0 0RF Continued cholecalciferol (vitamin D3) 25 mcg (1,000 unit) tablet 25 mcg PO DAILY pravastatin 40 mg tablet 40 mg PO HS Qty: 100 2RF gabapentin 300 mg capsule 300 mg PO .COMPLEX Qty: 120 11RF Rx Instructions: 300 mg orally 300mg am, 300mg afternoon, 600mg evening.; docusate sodium 100 mg capsule 100 mg PO BID cyanocobalamin (vitamin B-12) 500 mcg tablet 500 mcg PO DAILY duloxetine 60 mg capsule,delayed release(DR/EC) 60 mg PO DAILY Qty: 90 3RF meloxicam 15 mg tablet 15 mg PO DAILY Qty: 90 3RF PreserVision AREDS-2 [id number] dk-ujcm-io-mg Capsule 1 tab PO BID Changed oxycodone 5 mg tablet 10 mg PO QID MDD 4 tabs PRN (Reason: Lumbar post laminectomy syndrome) Qty: 120 0RF Discontinued buprenorphine [Butrans] 5 mcg/hour patch weekly 1 patch transdermal .COMPLEX Qty: 4 0RF Rx Instructions: 2 patches transdermally x1 week, then 1 patch transdermally x2 weeks; hydrochlorothiazide 25 mg tablet 25 mg PO DAILY Qty: 90 3RF naloxone 4 mg/actuation spray,non-aerosol 4 mg intranasal Q3M PRN (Reason: opioid overdose) Qty: 2 1RF Rx Instructions: spray 1 dose into ONE nostril; alternate nostrils w each dose until help arrives amlodipine 5 mg tablet 5 mg PO DAILY Qty: 90 3RF Discharge Orders: Discharge Order (Routine); Ordered 02/14/23 Ordered By: Alfred Nolan Admission Data Admit Date/Time: 02/07/23 10:33 Attending Provider: Alfred Nolan Admit Provider: Yazmin Cervantes Primary Care Provider: Michael Casarez. Other Providers: Yazmin Cervantes ; Guzman Antony ; Ronnie Gregory Other Interventions: Discharge Summary Assessment (RN) Last Done: 02/14/23 09:53 Coding Level of Care Code 52419 INP/OBS DISCH >30 MIN Diagnoses Thoracic spinal stenosis M48.04 Loosening of hardware in spine T84.498A Acute exacerbation of chronic low back pain M54.50; G89.29 Frequent falls R29.6 Hyperlipidemia E78.5 Prediabetes R73.03 B-cell lymphoproliferative disorder D47.9 BPH loc w urin obs/LUTS N40.1 Postlaminectomy syndrome of lumbosacral region M96.1 Opioid dependence F11.20 Foot drop M21.379 Left rib fracture S22.32XA Thoracic spine fracture S22.009A
== END 2023-02-14 11:37 | disposition short-term general hospital (02) | DRG 552 ==
LOC: 3E 14:30 → ED 14:30 → SUATTDRO 17:00 → 3E 18:44 → SUATTDRO 02-07 10:33